=== PATIENT | female | born 1960 | race African-American/Black ===

== ENCOUNTER 2017-09-04 15:41 | Emergency (ER) | payer MEDICARE, MEDICAID, SELFPAY | END 2017-09-04 17:53 | disposition home or self-care (01) | PROVIDERS: Emergency Provider Nurse Practitioner Family; Family Provider Family Medicine; Visit Provider Nurse Practitioner Family | DX: J06.9 Acute upper respiratory infection, unspecified (principal); J44.9 Chronic obstructive pulmonary disease, unspecified; I10 Essential (primary) hypertension; E78.5 Hyperlipidemia, unspecified; Z88.0 Allergy status to penicillin; Z88.1 Allergy status to other antibiotic agents | CPT/HCPCS: G0463; 87804; 99201 ==

== ENCOUNTER → 2017-11-05 11:18 | Outpatient (POV) | payer MEDICARE, MEDICAID, SELFPAY | PROVIDERS: Family Provider Family Medicine; PCP Family Medicine; Visit Provider Internal Medicine | DX: Z00.00 Encounter for general adult medical examination without abnormal findings (principal) ==

== ENCOUNTER → 2018-05-06 11:48 | Outpatient (POV) | payer MEDICARE, MEDICAID, SELFPAY ==
--- NOTE | 2018-05-06 13:07 | XR_ITS ---
EXAM: XR cervical spine 5V HISTORY: ITS.REASON: FALL, C/O NUMBNESS IN RT INDEX FINGER ORDERING PHYSICIAN: Lizzeth Devlin PATIENT AGE: 58 years FINDINGS: Reversal of upper cervical lordosis. There is multilevel degenerative disc disease from C3 to C7. There is minimal retrolisthesis of C4 on 5 and C5 on 6 2-mm at each level. No fracture or dislocation. No lytic or blastic change. There is mild foraminal narrowing on the right at C6-C7. Mild facet arthritic changes are present from C3 to C7. IMPRESSION: Multilevel degenerative disc disease as described above with mild foraminal narrowing on the right at C6-C7
--- NOTE | 2018-05-06 13:09 | XR_ITS ---
XR hip RT 2-3V w/pelvis HISTORY: ITS.REASON: FALL, C/O RT HIP PAIN ORDERING PHYSICIAN: Lizzeth Devlin PATIENT AGE: 58 years COMPARISON: 12/21/2015 FINDINGS: There is been a total right hip prosthesis placement which is in good position similar to the previous exam without evidence of orthopedic complication. No acute fracture or dislocation evident. Calcification is present along the medial aspect of lesser trochanter somewhat greater on today's exam consistent with some heterotopic bone formation. There is some sclerosis of the SI joints on both sides. IMPRESSION: 1. Status post total right hip prosthesis with some increase in heterotopic bone formation along the lesser trochanter. 2. Bilateral sacroiliac joint sclerosis inferiorly
== END ==
LOC: SC 11:49 → RAD 12:57
PROVIDERS: Family Provider Family Medicine; PCP Family Medicine; Referring Provider Internal Medicine; Visit Provider Nurse Practitioner Family
DX: M54.2 Cervicalgia (principal); R20.2 Paresthesia of skin; M79.642 Pain in left hand; M79.641 Pain in right hand
CPT/HCPCS: 72050; 73502

== ENCOUNTER → 2018-10-17 15:44 | Outpatient (CLI) | payer MEDICARE, MEDICAID, SELFPAY ==
--- NOTE | 2018-10-17 15:50 | MR_ITS ---
MR cervical spine wo con, MR 3-d myelogram/MRCP HISTORY: Fell [id number] ago and hit head, LT shoulder, and elbow. Bilateral hand numbness. Stiffness in neck. RT sided Neck pain. ITS.REASON: SPINE PAIN ORDERING PHYSICIAN: Max Campos PATIENT AGE: 58 years Comparison: X-RAY 05-06-18. TECHNIQUE: Standard multiplanar multiecho sequences are performed without contrast. 3-D MIP and myelographic images are also rendered and reviewed FINDINGS: There is normal alignment. The craniocervical junction has an unremarkable appearance. There is slight reversal of the upper cervical lordosis which could be due to patient positioning or muscle spasm. Motion artifact is present on the STIR images. Axial images are somewhat limited due to motion and patient body habitus. C2-C3: Unremarkable. C3-C4: Degenerative disc disease with mild concentric bulging disc with narrowing of the canal is 9 mm. There is minimal contour deformity along the anterior aspect of the cord from the bulging disc and canal stenosis C4-C5: Degenerative disc disease with mild bulging disc with narrowing of the canal and mild bilateral foraminal narrowing. Canal measures 9 to 10 mm. C5-C6: Degenerative disc disease with bulging disc along with mild facet and ligamentum flavum hypertrophy. There is narrowing of the canal at 7 mm with bilateral foraminal narrowing and bilateral lateral recess narrowing. C6-C7: Degenerative disc disease with bulging disc which is eccentric toward the right with moderate right-sided foraminal narrowing. There is borderline narrowing of the canal at 11 mm. C7-T1: Unremarkable. T1-T2: Degenerative disc disease with mild anterolisthesis of T1 of 3 mm. IMPRESSION: Somewhat limited study due to motion and patient body habitus. Multilevel cervical spondylosis with degenerative disc disease with bulging disc and narrowing of the canal along with lateral recess and foraminal narrowing. Please see above for detailed description at each level No disc herniation
== END ==
PROVIDERS: PCP Nurse Practitioner Family; Visit Provider Orthopaedic Surgery Adult Reconstructive Orthopaedic Surgery
DX: M50.30 Other cervical disc degeneration, unspecified cervical region (principal)
CPT/HCPCS: 72141; 76376

== ENCOUNTER → 2018-12-02 14:40 | Outpatient (POV) | payer MEDICARE, MEDICAID, SELFPAY | PROVIDERS: Visit Provider Internal Medicine | DX: Z00.00 Encounter for general adult medical examination without abnormal findings (principal) ==

== ENCOUNTER 2021-06-30 15:57 | Emergency (ER) | payer MEDICARE, MEDICAID, SELFPAY ==
[2021-06-30 16:34] VITALS: BP 126/98; PULSE 86; RESP 20; TEMP 36.8; O2SAT 99; BMI 53.2
--- NOTE | 2021-06-30 16:42 | XR_ITS ---
PROCEDURE INFORMATION: Exam: XR Left Femur Exam date and time: 06/30/2021 4:42 PM Age: 61 years old Clinical indication: Injury or trauma; Fall; Work related; Blunt trauma; Thigh or upper leg; Left; Injury date: 06/30/21; Additional info: Fall, L knee pain TECHNIQUE: Imaging protocol: XR Left femur. Views: 2 views. COMPARISON: VENOUS/LOW UNI W/COMP.-LT 12/26/2014 9:59 AM FINDINGS: Bones/joints: No definite fracture in the femoral neck and proximal femur.. Soft tissues: Unremarkable. IMPRESSION: No definite fracture in the femoral neck and proximal femur..
--- NOTE | 2021-06-30 16:43 | XR_ITS ---
PROCEDURE INFORMATION: Exam: XR Left Knee Exam date and time: 06/30/2021 4:43 PM Age: 61 years old Clinical indication: Injury or trauma; Work related; Blunt trauma; Left; Injury date: 06/30/21; Injury details: Pain and swelling after fall; Prior surgery; Surgery date: 6+ months; Surgery type: Knee surgery; Additional info: Left knee pain S/P fall TECHNIQUE: Imaging protocol: XR Left knee. Views: 3 views. COMPARISON: VENOUS/LOW UNI W/COMP.-LT 12/26/2014 9:59 AM FINDINGS: Bones/joints: Severe Tricompartmental joint space narrowing and osteophyte formation consistent with degenerative changes. Bone on bone in the medial and lateral compartment. There is no evidence of acute fracture.There is no evidence of malalignment or dislocation. Soft tissues: Soft tissue swelling of the knee IMPRESSION: 1. Severe Tricompartmental joint space narrowing and osteophyte formation consistent with degenerative changes. Bone on bone in the medial and lateral compartment. 2. There is no evidence of acute fracture.There is no evidence of malalignment or dislocation.
--- NOTE | 2021-06-30 16:43 | XR_ITS ---
PROCEDURE INFORMATION: Exam: XR Left Tibia and Fibula Exam date and time: 06/30/2021 4:43 PM Age: 61 years old Clinical indication: Injury or trauma; Fall; Work related; Blunt trauma; Lower leg; Left; Injury date: 06/30/21; Additional info: Left knee pain TECHNIQUE: Imaging protocol: XR Left tibia and fibula. Views: 2 views. COMPARISON: VENOUS/LOW UNI W/COMP.-LT 12/26/2014 9:59 AM FINDINGS: Bones/joints: Severe degenerative changes of the knee. Acute nondisplaced fracture could be easily overlooked with this degree of degenerative changes. Recommend CT if acute fractures of the distal femur or proximal tibia are suspected. Minimally displaced Spiral oblique fracture of the fibular neck and proximal fibula. Soft tissues: Soft tissue swelling of the knee IMPRESSION: 1. Severe degenerative changes of the knee. Acute nondisplaced fracture could be easily overlooked with this degree of degenerative changes. Recommend CT if acute fractures of the distal femur or proximal tibia are suspected. 2. Minimally displaced Spiral oblique fracture of the fibular neck and proximal fibula.
--- NOTE | 2021-06-30 16:44 | XR_ITS ---
PROCEDURE INFORMATION: Exam: XR Left Ankle Exam date and time: 06/30/2021 4:44 PM Age: 61 years old Clinical indication: Injury or trauma; Work related; Blunt trauma; Left; Injury date: 06/30/21; Patient HX: Ankle pain and swelling after fall today; Additional info: Fall, pain TECHNIQUE: Imaging protocol: XR Left ankle. Views: 1 or 2 views. COMPARISON: VENOUS/LOW UNI W/COMP.-LT 12/26/2014 9:59 AM FINDINGS: Bones/joints: Well corticated avulsion fractures adjacent to the medial malleolus. There is no evidence of acute fracture.There is no evidence of malalignment or dislocation. Soft tissues: Bimalleolar soft tissue swelling.. IMPRESSION: 1. Bimalleolar soft tissue swelling.. 2. There is no evidence of acute fracture.There is no evidence of malalignment or dislocation.
--- NOTE | 2021-06-30 17:02 | PC.NURSE ---
rad notified of xray order
--- NOTE | 2021-06-30 17:03 | PC.NURSE ---
STATED OK TO GIVE TORADOL IV. ICE PACK APPLIED TO LEFT ANKLE.
[2021-06-30 20:16] VITALS: BP 142/76; PULSE 75; RESP 18; TEMP 36.8; O2SAT 99
--- NOTE | 2021-06-30 23:30 | HMH.EDGENADL ---
ED Disposition Clinical Impression: Fibula fracture Qualifiers: Fibula location: proximal Fracture type: closed Laterality: left Disposition: Home, Self-Care Condition on Discharge: Good Instructions: Fibula Shaft Fracture Referrals: Favian Ruiz MD [Primary Care Provider] - Max Morales JR, MD [Physician] - - Critical Care Critical Care Time: No Attestation: On 06/30/21, the high probability of a clinically significant, sudden or life threatening deterioration of the following system(s) required my full and direct attention, intervention and personal management. The time I documented below is in addition to time spent performing reported procedures but includes the following listed in this critical care notation. Medical Decision Making - Medical Records Medical records reviewed: Yes: I reviewed the patient's medical records. - Moody Inquiry Pt receiving controlled substance: No Vital Signs: 06/30/21 16:34 06/30/21 20:16 Temperature 98.2 F 98.2 F Temperature Source Oral Oral Pulse Rate 75 Pulse Rate [Brachial] 86 Respiratory Rate 20 18 Blood Pressure 142/76 H Blood Pressure [Right Arm] 126/98 H Blood Pressure Mean [Right Arm] 107 Blood Pressure Source Automatic Cuff Blood Pressure Source [Right Arm] Automatic Cuff Blood Pressure Position Sitting Blood Pressure Position [Right Arm] Supine 02 Sat by Pulse Oximetry 99 Oxygen Delivery Method Room Air Room Air Orders (Tests/Meds): ED MEDICATIONS Discontinued Medications Generic Name Dose Route Start Last Admin Trade Name Freq PRN Reason Stop Dose Admin Acetaminophen 500 mg 06/30/21 16:46 06/30/21 17:00 Acetaminophen 500mg Tab PO 06/30/21 16:47 500 mg ONCE ONE Administration Ketorolac Tromethamine 30 mg 06/30/21 16:44 06/30/21 17:03 Ketorolac 30mg/Ml Vial IM 06/30/21 16:45 30 mg ONCE ONE Administration Medical Decision Narrative: Patient is a 61yo female presenting with a chief complaint of left lower extremity pain s/p fall. Differential diagnosis includes, but is not limited to, fracture, dislocation, contusion, neurovascular injury. Initial assessment, patient is hemodynamically stable and nontoxic-appearing. She is alert, oriented and there is no evidence of trauma to face, head or other extremities. She was evaluated with x-ray of her left femur, knee, tip/fib and ankle. She was treated with IV Toradol and Tylenol. Patient's imaging was significant for minimally displaced, spiral fracture of the proximal fibular neck and shaft. Ankle x-ray shows bimalleolar soft tissue swelling but no acute fracture or malalignment of the talar dome. This is suggestive of isolated proximal fibula fracture but syndesmosis involvement cannot be excluded. In addition, I am unable to exclude a knee fracture based on x-rays due to severe arthritis. Patient was discussed with orthopedist on-call, Dr. Morales who recommended patient be placed in a lower extremity boot, made nonweightbearing and referred to for orthopedic evaluation on an outpatient basis. Patient was given return precautions and discharged in stable condition with close orthopedic follow-up. General Adult HPI - General Chief complaint: Fall Stated complaint: fall Time Seen by Provider: 06/30/21 16:30 Mode of Arrival: EMS Limitations: Physical Limitations Description of Symptoms (Recalled from ER Triage Doc. by RN): PATIENT WAS GETTING READY TO GET IN HER TRUCK AND SHE LIFTED HER RIGHT LEG UP HER BACK WENT OUT AND LEFT GET WENT UNDERNEATH OF HER AND SHE FELL ON IT. PATIENT REPORTS PAIN FROM KNEE TO THE ANKLE. - History of Present Illness HPI narrative: Génesis is a 61yo F with past medical history of morbid obesity is presenting for chief complaint of acute left lower extremity pain s/p fall. She states she was getting into her truck when her legs gave out from underneath her and she fell on her left leg. She is complaining of severe
== END 2021-06-30 20:18 | disposition home or self-care (01) ==
PROVIDERS: Emergency Provider Emergency Medicine; PCP Emergency Medicine
DX: S82.832A Other fracture of upper and lower end of left fibula, initial encounter for closed fracture (principal); W01.10XA Fall on same level from slipping, tripping and stumbling with subsequent striking against unspecified object, initial encounter; Y92.019 Unspecified place in single-family (private) house as the place of occurrence of the external cause; Z88.0 Allergy status to penicillin; Z88.1 Allergy status to other antibiotic agents; Z88.5 Allergy status to narcotic agent
CPT/HCPCS: 73552; 73562; 73590; 73600; 96372; 99282

== ENCOUNTER 2022-01-27 08:45 | Emergency (ER) | payer MEDICARE, MEDICAID, SELFPAY ==
[2022-01-27 08:46] VITALS: BP 144/83; PULSE 92; RESP 18; TEMP 37.1; O2SAT 98; BMI 56.5
--- NOTE | 2022-01-27 09:01 | HMH.EDEAR ---
ED Disposition Clinical Impression: Otalgia, right ear Acute pharyngitis Qualifiers: Pharyngitis/tonsillitis etiology: unspecified etiology Qualified Code(s): J02.9 - Acute pharyngitis, unspecified Disposition: Home, Self-Care Condition on Discharge: Good Additional Instructions: follow up PCP as needed Prescriptions: clindamycin HCL [Cleocin HCl] 300 mg PO Q6 #40 cap Transmission Status: Pending to [id number] Referrals: Favian Ruiz MD [Primary Care Provider] - - Critical Care Critical Care Time: No Attestation: On , the high probability of a clinically significant, sudden or life threatening deterioration of the following system(s) required my full and direct attention, intervention and personal management. The time I documented below is in addition to time spent performing reported procedures but includes the following listed in this critical care notation. Medical Decision Making - Medical Records Medical records reviewed: Yes: I reviewed the patient's medical records. - Moody Inquiry Pt receiving controlled substance: No Vital Signs: 01/27/22 08:46 Temperature 98.7 F Temperature Source Oral Pulse Rate [Radial] 92 H Respiratory Rate 18 Blood Pressure [Right Arm] 144/83 H Blood Pressure Mean [Right Arm] 103 Blood Pressure Position [Right Arm] Sitting 02 Sat by Pulse Oximetry 98 Oxygen Delivery Method Room Air Ear HPI - General Chief complaint: Ear Stated complaint: rt ear pain Time Seen by Provider: 01/27/22 09:01 Mode of Arrival: Ambulatory Limitations: No Limitations Description of Symptoms (Recalled from ER Triage Doc. by RN): to ed per pvt car with c/o rt ear pain x 1 week states now pain radiating down rt side neck and rt jaw. denies any fever, chills, nausea, or drainage from ear. cpta tylenol - History of Present Illness HPI Narrative: rt otalgia, sore throat, several days Location: right ear Duration: constant Severity: moderate Relieving factors: nothing Exacerbating factors: nothing Discharge from ear: no - Related Data Home Medications Medication Instructions Recorded Confirmed albuterol sulfate 90 mcg/actuation 2 puff INHALATION Q6H PRN 02/27/18 12/11/18 aerosol inhaler budesonide-formoterol HFA 160 2 puff INHALATION BID 02/27/18 12/11/18 mcg-4.5 mcg/actuation aerosol inhaler dexlansoprazole 60 mg 60 mg PO DAILY 02/27/18 12/11/18 capsule,biphase delayed release ipratropium 20 mcg-albuterol 100 1 puff INHALATION Q6H 02/27/18 12/11/18 mcg/actuation mist for inhalation montelukast 10 mg tablet 10 mg PO QPM 02/27/18 12/11/18 spironolactone 25 mg tablet 25 mg PO DAILY 02/27/18 06/30/21 Clarithromycin [Biaxin] 500 mg PO BID 12/11/18 12/11/18 clindamycin HCL [Clindamycin HCl 300 mg PO Q8H 12/11/18 12/11/18 300mg Cap] predniSONE [Deltasone 10mg tablet] 10 mg PO BID 12/11/18 06/30/21 Previous Rx's Medication Instructions Recorded metronidazole 500 mg tablet 500 mg PO TID 10 Days #30 tab 11/04/18 ondansetron 4 mg disintegrating 4 mg PO TID PRN #15 tab 11/14/18 tablet levoFLOXacin [Levaquin 500mg 500 mg PO DAILY #7 tab 12/16/18 tab] clindamycin HCL [Cleocin HCl] 300 mg PO Q6 #40 cap 01/27/22 Allergies Allergy/AdvReac Type Severity Reaction Status Date / Time ampicillin [AMPICILLIN] Allergy Severe Rash Verified 12/11/18 20:53 cephalexin [From KEFLEX] Allergy Mild Verified 12/11/18 20:53 diclofenac [DICLOFENAC] Allergy Mild Verified 12/11/18 20:53 morphine [MORPHINE] Allergy Mild Verified 12/11/18 20:53 amoxicillin [From AUGMENTIN] Allergy Unknown Verified 12/11/18 20:53 clavulanic acid Allergy Unknown Verified 12/11/18 20:53 [From AUGMENTIN] Penicillins [PENICILLINS] Allergy Unknown Verified 12/11/18 20:53 azithromycin Allergy Rash Verified 12/11/18 20:53 [facility] History - Hepatitis A Screen Attestation statement:: This patient has been screened for Hepatitis A risk factors. Medical History
[2022-01-27 09:09] VITALS: BP 144/73; PULSE 87; RESP 16; TEMP 36.6; O2SAT 96
== END 2022-01-27 09:13 | disposition home or self-care (01) ==
PROVIDERS: Emergency Provider Emergency Medicine; PCP Emergency Medicine
DX: J02.9 Acute pharyngitis, unspecified (principal); H92.01 Otalgia, right ear; M54.2 Cervicalgia; R68.84 Jaw pain; Z88.0 Allergy status to penicillin; Z88.1 Allergy status to other antibiotic agents; Z88.3 Allergy status to other anti-infective agents; Z88.5 Allergy status to narcotic agent; Z88.8 Allergy status to other drugs, medicaments and biological substances; Z80.9 Family history of malignant neoplasm, unspecified; Z83.3 Family history of diabetes mellitus
CPT/HCPCS: 99283

== ENCOUNTER 2022-05-04 18:23 | Emergency (ER) | payer MEDICARE, MEDICAID, SELFPAY ==
--- NOTE | 2022-05-04 19:56 | EXP.UTC ---
Discharge Plan Disposition Patient Disposition: Home, Self-Care Condition: Good Prescriptions Prescriptions: New clindamycin HCl 300 mg capsule 300 mg PO Q8H 10 Days Qty: 30 0RF No Action spironolactone 25 mg tablet 25 mg PO DAILY albuterol sulfate [Ventolin HFA] 90 mcg/actuation HFA aerosol inhaler 2 puff INHALATION Q6H PRN (Reason: soa) budesonide-formoterol [Symbicort] 160-4.5 mcg/actuation HFA aerosol inhaler 2 puff INHALATION BID ipratropium-albuterol [Combivent Respimat] 20-100 mcg/actuation mist 1 puff INHALATION Q6H dexlansoprazole [Dexilant] 60 mg capsule,biphase delayed releas 60 mg PO DAILY montelukast [Singulair] 10 mg tablet 10 mg PO QPM metronidazole 500 mg tablet 500 mg PO TID 10 Days Qty: 30 0RF ondansetron 4 mg tablet,disintegrating 4 mg PO TID PRN (Reason: nausea and vomiting) Qty: 15 0RF prednisone 10 MG tablet 10 mg PO BID clindamycin HCl 300 MG capsule 300 mg PO Q8H clarithromycin [Biaxin] 500 MG tablet 500 mg PO BID levofloxacin 500 MG tablet 500 mg PO DAILY Qty: 7 0RF clindamycin HCl 300 MG capsule 300 mg PO Q6 Qty: 40 0RF Referrals Referrals: Favian Ruiz MD [Primary Care Provider] - Enter time for follow up Activity Restrictions/Add. Instructions Additional Instructions/Restrictions: Please follow up with your dentist as soon as they can see you. Take tylenol for pain Take the medications as directed. Follow up with your regular doctor. GO TO THE ER FOR ANY WORSENING SYMPTOMS Clinical Impressions Clinical Impression: Abscess, dental, Pain, dental Instructions Patient Instructions: Tooth Abscess, DI for Tooth Abscess Discharge ED Provider: Deshawn Nugent [facility] General Stated complaint: dental pain Time Seen by Provider: 05/04/22 19:56 History of Present Illness Provider Complaint: She states that she has had dental pain for the past 1 week. Related Data Home Medications Medication Instructions Recorded Confirmed albuterol sulfate 90 mcg/actuation 2 puff inhalation Q6H PRN soa 02/27/18 12/11/18 aerosol inhaler (Ventolin HFA) budesonide-formoterol HFA 160 2 puff inhalation BID soa 02/27/18 12/11/18 mcg-4.5 mcg/actuation aerosol inhaler (Symbicort) dexlansoprazole 60 mg 60 mg PO DAILY GERD 02/27/18 12/11/18 capsule,biphase delayed release (Dexilant) ipratropium 20 mcg-albuterol 100 1 puff inhalation Q6H soa 02/27/18 12/11/18 mcg/actuation mist for inhalation (Combivent Respimat) montelukast 10 mg tablet 10 mg PO QPM allergies 02/27/18 12/11/18 (Singulair) spironolactone 25 mg tablet 25 mg PO DAILY Fluid 02/27/18 06/30/21 clarithromycin 500 mg tablet 500 mg PO BID bronchitis 12/11/18 12/11/18 (Biaxin) clindamycin HCl 300 mg capsule 300 mg PO Q8H abx 12/11/18 12/11/18 prednisone 10 mg tablet 10 mg PO BID inflammation 12/11/18 06/30/21 Previous Rx's Medication Instructions Recorded metronidazole 500 mg tablet 500 mg PO TID dental infection 10 11/04/18 days #30 tabs ondansetron 4 mg disintegrating 4 mg PO TID PRN nausea and 11/14/18 tablet vomiting #15 tabs levofloxacin 500 mg tablet 500 mg PO DAILY #7 tabs 12/16/18 clindamycin HCl 300 mg capsule 300 mg PO Q6 #40 caps 01/27/22 clindamycin HCl 300 mg capsule 300 mg PO Q8H 10 days #30 caps 05/04/22 Allergies Allergy/AdvReac Type Severity Reaction Status Date / Time ampicillin [AMPICILLIN] Allergy Severe Rash Verified 12/11/18 20:53 cephalexin [From KEFLEX] Allergy Mild Verified 12/11/18 20:53 diclofenac [DICLOFENAC] Allergy Mild Verified 12/11/18 20:53 morphine [MORPHINE] Allergy Mild Verified 12/11/18 20:53 amoxicillin [From AUGMENTIN] Allergy Unknown Verified 12/11/18 20:53 clavulanic acid Allergy Unknown Verified 12/11/18 20:53 [From AUGMENTIN] Penicillins [PENICILLINS] Allergy Unknown Verified 12/11/18 20:53 azithromycin Allergy Rash Verified 12/11/18 20:
[2022-05-04 20:14] VITALS: BP 174/84; PULSE 99; RESP 18; TEMP 36.6; O2SAT 97; BMI 56.5
[2022-05-04 20:17] VITALS: BP 174/84; PULSE 99; RESP 18; TEMP 36.6
== END 2022-05-04 20:21 | disposition home or self-care (01) ==
PROVIDERS: Emergency Provider Nurse Practitioner Family; PCP Emergency Medicine
DX: K04.7 Periapical abscess without sinus (principal); K08.89 Other specified disorders of teeth and supporting structures; R11.2 Nausea with vomiting, unspecified; Z79.51 Long term (current) use of inhaled steroids; Z79.52 Long term (current) use of systemic steroids; Z88.0 Allergy status to penicillin; Z88.1 Allergy status to other antibiotic agents; Z88.3 Allergy status to other anti-infective agents; Z88.8 Allergy status to other drugs, medicaments and biological substances
CPT/HCPCS: 99213; G0463

== ENCOUNTER 2022-07-30 09:26 | Emergency (ER) | payer MEDICARE, MEDICAID, SELFPAY ==
[2022-07-30] VITALS (7 sets, daily range): BP systolic 141–163; BP diastolic 81–97; PULSE 86–95; RESP 16–18; TEMP 36.9–37.2; O2SAT 91–99; BMI 60.9
--- NOTE | 2022-07-30 09:33 | XR_ITS ---
FINAL REPORT CLINICAL HISTORY: chest pain COMPARISON: 12/11/2018 FINDINGS: A single portable view of the chest was obtained. The images are suboptimal. There is cardiomegaly. The mediastinum is within normal limits. There is probable linear atelectasis in the right lung. The bony thorax is intact. IMPRESSION: Suboptimal images. Probable linear atelectasis in the right lung. Reviewed, Interpreted and Dictated by Jesus Freire III, MD Transcribed by Basilia Nelson Authenticated and [facility]
--- NOTE | 2022-07-30 09:33 | CT_ITS ---
FINAL REPORT CLINICAL HISTORY: chest pain, to back COMPARISON: 09/10/2017 FINDINGS: Thin section axial CT images of the chest were obtained with contrast. 3D reformatted images were also obtained. This study was performed with techniques to keep radiation doses as low as reasonably achievable (ALARA). Individualized dose reduction techniques using automated exposure control or adjustment of mA and/or kV according to the patient''s size were employed. There is artifact secondary to patient body habitus which decreases sensitivity of the exam. There is no evidence of pulmonary embolism. There is no evidence of thoracic aortic aneurysm or dissection. There is no evidence of mediastinal or hilar mass or adenopathy. There is no evidence of pulmonary mass or nodule. There is minimal atelectasis in the lung bases. There is a small hiatal hernia. Limited images of the upper abdomen demonstrate a 5.5 cm mass in the upper pole of the right kidney which cannot be accurately characterized without contrast. IMPRESSION: No evidence of pulmonary embolism. No evidence of thoracic aortic aneurysm or dissection. 5.5 cm mass in the upper pole of right kidney cannot be accurately characterized without contrast. Reviewed, Interpreted and Dictated by Jesus Freire III, MD Transcribed by Basilia Nelson Authenticated and . [facility]
--- NOTE | 2022-07-30 09:34 | ECG_ITS ---
APPROVED REPORT Exam: Resting ECG HR:91 bpm ECG Measurements Heart Rate 91 AXES DC 150 P 61 QRSd 91 QRS 11 QT 356 T 41 QTc 404 Conclusion SINUS RHYTHM WITH OCCASIONAL SUPRAVENTRICULAR PREMATURE COMPLEXES BORDERLINE ECG UNCONFIRMED REPORT Electronically signed by : Devonte Cain MD 07/30/2022 19:43:17
--- NOTE | 2022-07-30 09:37 | HMH.EDGENADL ---
Discharge Plan Disposition Patient Disposition: Home, Self-Care Condition: Fair Prescriptions Prescriptions: New naproxen 500 mg tablet 500 mg PO BID PRN (Reason: pain) Qty: 20 0RF No Action spironolactone 25 mg tablet 25 mg PO DAILY albuterol sulfate [Ventolin HFA] 90 mcg/actuation HFA aerosol inhaler 2 puff INHALATION Q6H PRN (Reason: soa) budesonide-formoterol [Symbicort] 160-4.5 mcg/actuation HFA aerosol inhaler 2 puff INHALATION BID ipratropium-albuterol [Combivent Respimat] 20-100 mcg/actuation mist 1 puff INHALATION Q6H dexlansoprazole [Dexilant] 60 mg capsule,biphase delayed releas 60 mg PO DAILY montelukast [Singulair] 10 mg tablet 10 mg PO QPM metronidazole 500 mg tablet 500 mg PO TID 10 Days Qty: 30 0RF ondansetron 4 mg tablet,disintegrating 4 mg PO TID PRN (Reason: nausea and vomiting) Qty: 15 0RF prednisone 10 MG tablet 10 mg PO BID clindamycin HCl 300 MG capsule 300 mg PO Q8H clarithromycin [Biaxin] 500 MG tablet 500 mg PO BID levofloxacin 500 MG tablet 500 mg PO DAILY Qty: 7 0RF clindamycin HCl 300 MG capsule 300 mg PO Q6 Qty: 40 0RF clindamycin HCl 300 mg capsule 300 mg PO Q8H 10 Days Qty: 30 0RF Referrals Follow up/Referrals: Favian Ruiz MD [Primary Care Provider] - See instructions Activity Restrictions/Add. Instructions Additional Instructions/Restrictions: You have been evaluated for chest, back pain. Likely due to musculoskeletal, pleuritic pain. Please take anti-inflammatories like naproxen or ibuprofen as scheduled. Follow-up with your primary care doctor for symptom recheck in [address] scan today incidentally showed a nodule on your right kidney. You will need to have follow-up for this as well. Return to the emergency department at once for any new or worsening symptoms, pain, difficulty breathing, fevers, other concerns Clinical Impressions Clinical Impression: Pleuritic chest pain, Nodule of kidney Instructions Patient Instructions: DI for Atypical Chest Pain, DI for Pleurisy, DI for Adrenal Incidentaloma Discharge ED Provider: Danika Brock General Adult HPI General Chief complaint: Shortness of Breath/Dyspnea Stated complaint: soa severe pain between shoulder blades Time Seen by Provider: 07/30/22 09:30 Mode of Arrival: Ambulatory Source of Information: Patient Limitations: No Limitations History of Present Illness HPI narrative: 62-year-old female presenting to the emergency department with chest pain. Pain started a couple of days ago. It is located between her shoulder blades. Described as sharp, stabbing. Feels like glass. Located on the back. No radiation to the front of the chest. Hurts to move. Hurts to breathe. Has had some sinus congestion. Denies fevers, chills, cough, shortness of breath. She has been taking acetaminophen without relief. She has had pleurisy before, this feels similar. She denies changes in activity or known injury. She suffers from sarcoidosis and pulmonary hypertension. No history of hypertension or CAD. Related Data Home Medications Medication Instructions Recorded Confirmed albuterol sulfate 90 mcg/actuation 2 puff inhalation Q6H PRN soa 02/27/18 12/11/18 aerosol inhaler (Ventolin HFA) budesonide-formoterol HFA 160 2 puff inhalation BID soa 02/27/18 12/11/18 mcg-4.5 mcg/actuation aerosol inhaler (Symbicort) dexlansoprazole 60 mg 60 mg PO DAILY GERD 02/27/18 12/11/18 capsule,biphase delayed release (Dexilant) ipratropium 20 mcg-albuterol 100 1 puff inhalation Q6H soa 02/27/18 12/11/18 mcg/actuation mist for inhalation (Combivent Respimat) montelukast 10 mg tablet 10 mg PO QPM allergies 02/27/18 12/11/18 (Singulair) spironolactone 25 mg tablet 25 mg PO DAILY Fluid 02/27/18 06/30/21 clarithromycin 500 mg tablet 500 mg PO BID bronchitis 12/11/18 12/11/18 (Biaxin) clindamycin HCl 300 mg capsule
--- NOTE | 2022-07-30 09:43 | PC.NURSE ---
rad at BS for portable xray
[2022-07-30 09:53] LABS: Basophils # 0.1 K/mm3 (0-0.2); Basophils % 0.7 % (0.1-2.0); Eosinophils # 0.2 K/mm3 (0.0-0.4); Eosinophils % 2.1 % (0.1-12.0); Hematocrit 40.1 % (37.0-47.0); Hemoglobin 12.3 g/dL (12.2-16.2); Lymphocytes # 2.1 K/mm3 (0.7-4.5); Lymphocytes % 17.9 % (10-50); Mean Corpuscular HGB Conc 30.6 g/dL (31.8-35.4); Mean Corpuscular Hemoglobin 25.3 pg (27.0-31.2); Mean Corpuscular Volume 82.7 fl (81-99); Mean Platelet Volume 8.9 fl (7.4-10.4); Monocytes # 0.5 K/mm3 (0.1-1.0); Monocytes % 4.3 % (1.7-9.3); Neutrophils # 8.6 K/mm3 (1.8-7.8); Platelet Count 353 K/mm3 (142-424); Red Blood Count 4.85 M/mm3 (4.20-5.40); Red Cell Distribution Width 17.4 % (11.5-17.5); White Blood Count 11.5 K/mm3 (4.8-10.8)
[2022-07-30 09:56] LABS: Chloride 104 mmol/L (98-107); Potassium 3.6 mmoL/L (3.5-5.1); Sodium 142 mmol/L (136-145)
[2022-07-30 09:59] LABS: Anion Gap 10.6 mEq/L (5-15); Blood Urea Nitrogen 16 mg/dl (7-17); Calcium 9.8 mg/dl (8.4-10.2); Carbon Dioxide 31 mmol/L (22.0-30.0); Estimated Glomerular Filt Rate 64 ml/min (>60); GFR (African American) 77 ML/MIN (>60); Glucose 93 mg/dl (74-100)
--- NOTE | 2022-07-30 10:06 | PC.NURSE ---
pt to CT
[2022-07-30 10:14] LABS: Troponin I < 0.01 ng/ml (0.00-0.034)
--- NOTE | 2022-07-30 11:30 | PC.NURSE ---
pt to restroom and back to bed, pt uses her own walker to assist with ambulation, pt tolerated well. Warm blanket given to pt, call light within reach. Pt states no other needs at this time
[2022-07-30 13:57] LABS: Troponin I < 0.01 ng/ml (0.00-0.034)
== END 2022-07-30 15:10 | disposition home or self-care (01) ==
PROVIDERS: Emergency Provider Emergency Medicine; PCP Emergency Medicine
DX: R07.81 Pleurodynia (principal); N28.89 Other specified disorders of kidney and ureter
CPT/HCPCS: 71045; 71275; 80048; 84484; 85025; 93005; 96374; 99285; Q9967

== ENCOUNTER 2022-10-10 15:00 | Outpatient (RCR) | payer MEDICARE, MEDICAID, SELFPAY | END 2022-10-18 13:19 | disposition home or self-care (01) | LOC: PT 15:00 | PROVIDERS: PCP Emergency Medicine; Visit Provider Neurological Surgery | DX: M54.2 Cervicalgia (principal) | CPT/HCPCS: 97012; 97110; 97140; 97163 ==

== ENCOUNTER → 2022-12-12 08:26 | Outpatient (CLI) | payer MEDICARE, MEDICAID, SELFPAY ==
--- NOTE | 2022-12-12 08:32 | XR_ITS ---
FINAL REPORT CLINICAL HISTORY: hip pain FINDINGS: RIGHT HIP Three views of the right hip including an AP pelvis demonstrate right hip prosthesis. There is no acute fracture. There are moderate hypertrophic changes of degenerative disc disease in the lower lumbar spine. The visualized bony structures are well aligned. No soft tissue abnormality is seen. IMPRESSION: Right hip prosthesis. Moderate hypertrophic changes of degenerative disc disease in the lower lumbar spine. Reviewed, Interpreted and Dictated by Isael Farrell MD Transcribed by Basilia Nelson Authenticated and [facility]
== END ==
PROVIDERS: PCP Emergency Medicine; Visit Provider Orthopaedic Surgery
DX: M25.551 Pain in right hip (principal)
CPT/HCPCS: 73502

== ENCOUNTER 2023-03-15 08:27 | Emergency (ER) | payer MEDICARE, MEDICAID, SELFPAY ==
[2023-03-15 08:30] VITALS: BP 158/97; PULSE 98; RESP 26; TEMP 37; O2SAT 98; BMI 56.5
--- NOTE | 2023-03-15 08:39 | EXP.UTC ---
Discharge Plan Disposition Patient Disposition: Home, Self-Care Condition: Good Prescriptions Prescriptions: New mupirocin 2 % ointment 1 applic topical BID Qty: 22 0RF Rx Instructions: apply to sores in nose doxycycline hyclate 100 mg capsule 100 mg PO BID Qty: 20 0RF No Action spironolactone 25 mg tablet 25 mg PO DAILY albuterol sulfate [Ventolin HFA] 90 mcg/actuation HFA aerosol inhaler 2 puff INHALATION Q6H PRN (Reason: soa) budesonide-formoterol [Symbicort] 160-4.5 mcg/actuation HFA aerosol inhaler 2 puff INHALATION BID ipratropium-albuterol [Combivent Respimat] 20-100 mcg/actuation mist 1 puff INHALATION Q6H dexlansoprazole [Dexilant] 60 mg capsule,biphase delayed releas 60 mg PO DAILY montelukast [Singulair] 10 mg tablet 10 mg PO QPM metronidazole 500 mg tablet 500 mg PO TID 10 Days Qty: 30 0RF ondansetron 4 mg tablet,disintegrating 4 mg PO TID PRN (Reason: nausea and vomiting) Qty: 15 0RF prednisone 10 MG tablet 10 mg PO BID clindamycin HCl 300 MG capsule 300 mg PO Q8H clarithromycin [Biaxin] 500 MG tablet 500 mg PO BID naproxen 500 mg tablet 500 mg PO BID PRN (Reason: pain) Qty: 20 0RF levofloxacin 500 MG tablet 500 mg PO DAILY Qty: 7 0RF clindamycin HCl 300 MG capsule 300 mg PO Q6 Qty: 40 0RF clindamycin HCl 300 mg capsule 300 mg PO Q8H 10 Days Qty: 30 0RF Referrals Follow up/Referrals: Favian Ruiz MD [Primary Care Provider] - See instructions Activity Restrictions/Add. Instructions Additional Instructions/Restrictions: *Monitor Temp, Over the counter Motrin or Tylenol as directed/as needed Tylenol every 4 hours and Motrin every 6 hours (as long as your family doctor has told you that you can take it) for fever or pain. and straight to ER if unable to lower temp less than 101.0 after medication given *Warm salt water gargles may help to soothe the throat *Throat Lozenges? *Warm fluids like tea with honey may help to soothe the throat? *Sleep elevated *Humidifier/Vaporizer *Flonase 2 sprays in each nostril daily but be aware that it may take 2-3 days before you notice improvement Take medication as prescribed Follow up IMMEDIATELY for new or worsening symptoms or no Noticeable improvement over the next 48-72 hours. 911 for difficulty breathing or swallowing Clinical Impressions Clinical Impression: Sinusitis Qualifiers: Sinusitis location: unspecified location Chronicity: unspecified Qualified Code(s): J32.9 - Chronic sinusitis, unspecified Instructions Patient Instructions: DI for Sinusitis, Sinusitis Discharge ED Provider: Mandy Ashley [facility] HPI General Stated complaint: ear ache, nose bleeds, sore throat, WONG Mode of Arrival: Ambulatory Source of Information: Patient Limitations: No Limitations Time Seen by Provider: 03/15/23 08:39 Description of Symptoms (Recalled from Triage Doc. by RN): PATIENT C/O RIGHT EAR PAIN, SINUS PAIN, AND FEELING HOT/SWEATS X 7-8 DAYS HEENT Symptoms (Recalled from RN notes): Yes Resp Symptoms (Recalled from RN notes): No Skin Symptoms (Recalled from RN notes): No MS Symptoms (Recalled from RN notes): No Functional Status (Recalled from RN notes): WNL History of Present Illness Provider Complaint: Patient states that for over a week she has been having sinus pain and pressure and pain in her right ear States that she has sores in her nose and they hurt States that she has been trying to use vasoline but not helped much and she is having pressure behind her eyes Feels like she has a bad sinus infection Related Data Home Medications Medication Instructions Recorded Confirmed albuterol sulfate 90 mcg/actuation 2 puff inhalation Q6H PRN soa 02/27/18 12/12/22 aerosol inhaler (Ventolin HFA) budesonide-formoterol HFA 160 2 puff inhalation BID soa 18 12/12/22 mcg-4.5 mcg/actuation aerosol in
[2023-03-15 08:58] VITALS: BP 158/97; PULSE 98; RESP 22; TEMP 37; O2SAT 98
== END 2023-03-15 09:00 | disposition home or self-care (01) ==
PROVIDERS: Emergency Provider Nurse Practitioner; PCP Emergency Medicine
DX: J01.90 Acute sinusitis, unspecified (principal); H92.01 Otalgia, right ear
CPT/HCPCS: 99212; 99214; G0463

== ENCOUNTER 2023-05-23 13:14 | Emergency (ER) | payer MEDICARE, MEDICAID, SELFPAY ==
[2023-05-23 13:24] VITALS: BP 154/97; PULSE 116; RESP 19; TEMP 37.2; O2SAT 97; BMI 41.5
[2023-05-23 13:44] VITALS: BP 163/98; PULSE 94; RESP 18; O2SAT 97
--- NOTE | 2023-05-23 13:44 | HMH.EDGENADL ---
Discharge Plan Disposition Patient Disposition: Home, Self-Care Prescriptions Prescriptions: New clindamycin HCl 300 mg capsule 300 mg PO Q8H 7 Days Qty: 21 0RF No Action spironolactone 25 mg tablet 25 mg PO DAILY albuterol sulfate [Ventolin HFA] 90 mcg/actuation HFA aerosol inhaler 2 puff INHALATION Q6H PRN (Reason: soa) budesonide-formoterol [Symbicort] 160-4.5 mcg/actuation HFA aerosol inhaler 2 puff INHALATION BID ipratropium-albuterol [Combivent Respimat] 20-100 mcg/actuation mist 1 puff INHALATION Q6H dexlansoprazole [Dexilant] 60 mg capsule,biphase delayed releas 60 mg PO DAILY montelukast [Singulair] 10 mg tablet 10 mg PO QPM metronidazole 500 mg tablet 500 mg PO TID 10 Days Qty: 30 0RF ondansetron 4 mg tablet,disintegrating 4 mg PO TID PRN (Reason: nausea and vomiting) Qty: 15 0RF prednisone 10 MG tablet 10 mg PO BID clindamycin HCl 300 MG capsule 300 mg PO Q8H clarithromycin [Biaxin] 500 MG tablet 500 mg PO BID naproxen 500 mg tablet 500 mg PO BID PRN (Reason: pain) Qty: 20 0RF mupirocin 2 % ointment 1 applic topical BID Qty: 22 0RF Rx Instructions: apply to sores in nose doxycycline hyclate 100 mg capsule 100 mg PO BID Qty: 20 0RF levofloxacin 500 MG tablet 500 mg PO DAILY Qty: 7 0RF clindamycin HCl 300 MG capsule 300 mg PO Q6 Qty: 40 0RF clindamycin HCl 300 mg capsule 300 mg PO Q8H 10 Days Qty: 30 0RF Referrals Follow up/Referrals: Favian Ruiz MD [Primary Care Provider] - See instructions Activity Restrictions/Add. Instructions Additional Instructions/Restrictions: At this time associated to be discharged home. If new or worsening symptoms please do not hesitate to return the emergency department. Please take your antibiotics as prescribed. Please continue to follow-up with your family doctor and dentist as discussed. Clinical Impressions Clinical Impression: Dental caries, Acute ear pain Discharge ED Provider: Shawn Bansal General Adult HPI General Chief complaint: Dental/Oral Stated complaint: Pain in right ear and throat Time Seen by Provider: 05/23/23 13:24 Mode of Arrival: Ambulatory Source of Information: Patient Limitations: No Limitations Description of Symptoms (Recalled from ER Triage Doc. by RN): 63 yo F presents to ED with c/o infection in teeth, right ear pain. Symptoms ongoing for a few days History of Present Illness HPI narrative: Patient is a 63-year-old female with past medical history of sarcoidosis who presents emergency department for evaluation of tooth pain. Patient states that she has multiple cavities which are requiring mouth surgery and she saw the dentist the last couple of days and had one of her tooth manipulated. Since then she has felt right maxillary molar pain radiating to her ear. She has subjective facial fullness on the right. She states she has chronic hip pain status post total hip replacement. Related Data Home Medications Medication Instructions Recorded Confirmed albuterol sulfate 90 mcg/actuation 2 puff inhalation Q6H PRN soa 02/27/18 12/12/22 aerosol inhaler (Ventolin HFA) budesonide-formoterol HFA 160 2 puff inhalation BID soa 02/27/18 12/12/22 mcg-4.5 mcg/actuation aerosol inhaler (Symbicort) dexlansoprazole 60 mg 60 mg PO DAILY GERD 02/27/18 12/12/22 capsule,biphase delayed release (Dexilant) ipratropium 20 mcg-albuterol 100 1 puff inhalation Q6H soa 02/27/18 12/12/22 mcg/actuation mist for inhalation (Combivent Respimat) montelukast 10 mg tablet 10 mg PO QPM allergies 02/27/18 12/12/22 (Singulair) spironolactone 25 mg tablet 25 mg PO DAILY Fluid 02/27/18 12/12/22 clarithromycin 500 mg tablet 500 mg PO BID bronchitis 12/11/18 12/12/22 (Biaxin) clindamycin HCl 300 mg capsule 300 mg PO Q8H abx 12/11/18 12/12/22 prednisone 10 mg tablet 10 mg PO BID inflammation 12/11/18 12/12/22 Previou
[2023-05-23 14:17] VITALS: BP 148/91; PULSE 95; RESP 15; TEMP 36.7
== END 2023-05-23 14:18 | disposition home or self-care (01) ==
PROVIDERS: Emergency Provider Emergency Medicine; PCP Emergency Medicine
DX: R07.0 Pain in throat (principal); H92.01 Otalgia, right ear; D86.9 Sarcoidosis, unspecified
CPT/HCPCS: 99283

== ENCOUNTER 2023-07-11 15:58 | Emergency (ER) | payer MEDICARE, MEDICAID, SELFPAY ==
[2023-07-11 15:59] VITALS: BP 162/100; PULSE 111; RESP 19; TEMP 36.8; O2SAT 99; BMI 59.1
--- NOTE | 2023-07-11 16:13 | HMH.EDGENADL ---
Discharge Plan Disposition Patient Disposition: Home, Self-Care Prescriptions Prescriptions: No Action spironolactone 25 mg tablet 25 mg PO DAILY albuterol sulfate [Ventolin HFA] 90 mcg/actuation HFA aerosol inhaler 2 puff INHALATION Q6H PRN (Reason: soa) budesonide-formoterol [Symbicort] 160-4.5 mcg/actuation HFA aerosol inhaler 2 puff INHALATION BID ipratropium-albuterol [Combivent Respimat] 20-100 mcg/actuation mist 1 puff INHALATION Q6H dexlansoprazole [Dexilant] 60 mg capsule,biphase delayed releas 60 mg PO DAILY montelukast [Singulair] 10 mg tablet 10 mg PO QPM metronidazole 500 mg tablet 500 mg PO TID 10 Days Qty: 30 0RF ondansetron 4 mg tablet,disintegrating 4 mg PO TID PRN (Reason: nausea and vomiting) Qty: 15 0RF prednisone 10 MG tablet 10 mg PO BID clindamycin HCl 300 MG capsule 300 mg PO Q8H clarithromycin [Biaxin] 500 MG tablet 500 mg PO BID naproxen 500 mg tablet 500 mg PO BID PRN (Reason: pain) Qty: 20 0RF mupirocin 2 % ointment 1 applic topical BID Qty: 22 0RF Rx Instructions: apply to sores in nose doxycycline hyclate 100 mg capsule 100 mg PO BID Qty: 20 0RF clindamycin HCl 300 mg capsule 300 mg PO Q8H 7 Days Qty: 21 0RF levofloxacin 500 MG tablet 500 mg PO DAILY Qty: 7 0RF clindamycin HCl 300 MG capsule 300 mg PO Q6 Qty: 40 0RF clindamycin HCl 300 mg capsule 300 mg PO Q8H 10 Days Qty: 30 0RF Referrals Follow up/Referrals: Favian Ruiz MD [Primary Care Provider] - See instructions Activity Restrictions/Add. Instructions Additional Instructions/Restrictions: At this time it was felt you are safe to be discharged home. If new or worsening symptoms such as pus leaking from the wound, redness spreading up or down the leg please do not hesitate to return the emergency department. Please follow-up in 10 days with your family doctor for suture removal. Clinical Impressions Clinical Impression: Laceration of leg, Traumatic leg injury Discharge ED Provider: Shawn Bansal General Adult HPI General Stated complaint: [id number] RT leg lac Time Seen by Provider: 07/11/23 16:07 History of Present Illness HPI narrative: Patient is a 63-year-old female with no pertinent past medical history presents emergency department for evaluation of traumatic injury sustained prior to arrival. Patient bumped her right posterior calf into a car door causing a bleeding wound that causes her to present here for continued evaluation. No other acute complaints at this time. Tetanus not up-to-date. Related Data Home Medications Medication Instructions Recorded Confirmed albuterol sulfate 90 mcg/actuation 2 puff inhalation Q6H PRN soa 02/27/18 12/12/22 aerosol inhaler (Ventolin HFA) budesonide-formoterol HFA 160 2 puff inhalation BID soa 02/27/18 12/12/22 mcg-4.5 mcg/actuation aerosol inhaler (Symbicort) dexlansoprazole 60 mg 60 mg PO DAILY GERD 02/27/18 12/12/22 capsule,biphase delayed release (Dexilant) ipratropium 20 mcg-albuterol 100 1 puff inhalation Q6H soa 02/27/18 12/12/22 mcg/actuation mist for inhalation (Combivent Respimat) montelukast 10 mg tablet 10 mg PO QPM allergies 02/27/18 12/12/22 (Singulair) spironolactone 25 mg tablet 25 mg PO DAILY Fluid 02/27/18 12/12/22 clarithromycin 500 mg tablet 500 mg PO BID bronchitis 12/11/18 12/12/22 (Biaxin) clindamycin HCl 300 mg capsule 300 mg PO Q8H abx 12/11/18 12/12/22 prednisone 10 mg tablet 10 mg PO BID inflammation 12/11/18 12/12/22 Previous Rx's Medication Instructions Recorded metronidazole 500 mg tablet 500 mg PO TID dental infection 10 11/04/18 days #30 tabs ondansetron 4 mg disintegrating 4 mg PO TID PRN nausea and 11/14/18 tablet vomiting #15 tabs levofloxacin 500 mg tablet 500 mg PO DAILY #7 tabs 12/16/18 clindamycin HCl 300 mg capsule 300 mg PO Q6 #40 caps 01/27/22 clindamycin HCl 300 mg cap
[2023-07-11 17:10] VITALS: BP 167/102; PULSE 77; RESP 20; TEMP 36.7; O2SAT 98
== END 2023-07-11 17:15 | disposition home or self-care (01) ==
PROVIDERS: Emergency Provider Emergency Medicine; PCP Emergency Medicine
DX: S81.811A Laceration without foreign body, right lower leg, initial encounter (principal); W22.8XXA Striking against or struck by other objects, initial encounter
CPT/HCPCS: 12002; 90715; 96372; 99283

== ENCOUNTER 2023-09-19 11:43 | Emergency (ER) | payer MEDICARE, MEDICAID, SELFPAY ==
[2023-09-19 12:25] VITALS: BP 157/82; PULSE 83; RESP 20; TEMP 36.8; O2SAT 98; BMI 69.2
--- NOTE | 2023-09-19 12:46 | ED_ITS ---
Discharge Plan Disposition Patient Disposition: Home, Self-Care Condition: Good Prescriptions Prescriptions: New doxycycline hyclate 100 mg capsule 100 mg PO BID 7 Days Qty: 14 0RF mupirocin 2 % ointment 1 applic topical TID 10 Days Qty: 22 0RF Rx Instructions: apply to area as prescribed No Action spironolactone 25 mg tablet 25 mg PO DAILY albuterol sulfate [Ventolin HFA] 90 mcg/actuation HFA aerosol inhaler 2 puff INHALATION Q6H PRN (Reason: soa) budesonide-formoterol [Symbicort] 160-4.5 mcg/actuation HFA aerosol inhaler 2 puff INHALATION BID ipratropium-albuterol [Combivent Respimat] 20-100 mcg/actuation mist 1 puff INHALATION Q6H dexlansoprazole [Dexilant] 60 mg capsule,biphase delayed releas 60 mg PO DAILY montelukast [Singulair] 10 mg tablet 10 mg PO QPM metronidazole 500 mg tablet 500 mg PO TID 10 Days Qty: 30 0RF ondansetron 4 mg tablet,disintegrating 4 mg PO TID PRN (Reason: nausea and vomiting) Qty: 15 0RF prednisone 10 MG tablet 10 mg PO BID clindamycin HCl 300 MG capsule 300 mg PO Q8H clarithromycin [Biaxin] 500 MG tablet 500 mg PO BID naproxen 500 mg tablet 500 mg PO BID PRN (Reason: pain) Qty: 20 0RF mupirocin 2 % ointment 1 applic topical BID Qty: 22 0RF Rx Instructions: apply to sores in nose doxycycline hyclate 100 mg capsule 100 mg PO BID Qty: 20 0RF clindamycin HCl 300 mg capsule 300 mg PO Q8H 7 Days Qty: 21 0RF levofloxacin 500 MG tablet 500 mg PO DAILY Qty: 7 0RF clindamycin HCl 300 MG capsule 300 mg PO Q6 Qty: 40 0RF clindamycin HCl 300 mg capsule 300 mg PO Q8H 10 Days Qty: 30 0RF Referrals Follow up/Referrals: Favian Ruiz MD [Primary Care Provider] - See instructions Activity Restrictions/Add. Instructions Additional Instructions/Restrictions: Keep wound area clean and dry Take medication as prescribed Follow up with your Family Doctor next week for recheck to make sure infection is clearing Straight to ER if any life threatening symptoms Clinical Impressions Clinical Impression: Skin infection Instructions Patient Instructions: Doxycycline, Mupirocin Discharge ED Provider: Mandy Ashley [facility] General Stated complaint: right leg pain wound Mode of Arrival: Ambulatory Source of Information: Patient Limitations: No Limitations Time Seen by Provider: 09/19/23 12:46 Description of Symptoms (Recalled from Triage Doc. by RN): PATIENT STATES SHE HAD STITCHES PUT IN RIGHT LEG ON 08/01 AND IS WORRIED THAT IT MAY BE INFECTED OR NOT HEALING RIGHT. THE LAST STITCH WAS REMOVED AT HOME ON 09/02 HEENT Symptoms (Recalled from RN notes): No Resp Symptoms (Recalled from RN notes): No Skin Symptoms (Recalled from RN notes): Yes MS Symptoms (Recalled from RN notes): No Functional Status (Recalled from RN notes): WNL History of Present Illness Provider Complaint: Patient states that she had cut her right lower leg back in Jul and had to have stitches States that she seen her PCP and they took the stitches out but was unable to get one out States on Nomi her daughter was able to get it out but since then she thinks it may be infected States that area where the stitches was had some drainage come out of it and is getting hard and starting to look a little red so she came in to get checked before it got too bad Related Data Home Medications Medication Instructions Recorded Confirmed albuterol sulfate 90 mcg/actuation 2 puff inhalation Q6H PRN soa 02/27/18 12/12/22 aerosol inhaler (Ventolin HFA) budesonide-formoterol HFA 160 2 puff inhalation BID soa 02/27/18 12/12/22 mcg-4.5 mcg/actuation aerosol inhaler (Symbicort) dexlansoprazole 60 mg 60 mg PO DAILY GERD 02/27/18 12/12/22 capsule,biphase delayed release (Dexilant) ipratropium 20 mcg-albuterol 100 1 puff inhalation Q6H soa 02/27/18 12/12/22 mcg/actuation mist for inhalation (Combivent Respimat) montelukast 10 mg tablet 10 mg PO QPM allergies 02/27/18 12/12/22 (Singulair) spironolactone 25 mg tablet 25 mg PO DAILY Fluid 02/27/18 12/12/22 clarithromycin 500 mg tablet 500 mg PO BID bronchitis 12/11/18 12/12/22 (Biaxin) clindamycin HCl 300 mg capsule 300 mg PO Q8H abx 12/11/18 12/12/22 prednisone 10 mg tablet 10 mg PO BID inflammation 12/11/18 12/12/22 Previous Rx's Medication Instructions Recorded metronidazole 500 mg tablet 500 mg PO TID dental infection 10 11/04/18 days #30 tabs ondansetron 4 mg disintegrating 4 mg PO TID PRN nausea and 11/14/18 tablet vomiting #15 tabs levofloxacin 500 mg tablet 500 mg PO DAILY #7 tabs 12/16/18 clindamycin HCl 300 mg capsule 300 mg PO Q6 #40 caps 01/27/22 clindamycin HCl 300 mg capsule 300 mg PO Q8H 10 days #30 caps 05/04/22 naproxen 500 mg tablet 500 mg PO BID PRN pain #20 tabs 07/30/22 doxycycline hyclate 100 mg capsule 100 mg PO BID #20 caps 03/15/23 mupirocin 2 % topical ointment 1 applic topical BID #22 grams 03/15/23 clindamycin HCl 300 mg capsule 300 mg PO Q8H 7 days #21 caps 05/23/23 doxycycline hyclate 100 mg capsule 100 mg PO BID 7 days #14 caps 09/19/23 mupirocin 2 % topical ointment 1 applic topical TID 10 days #22 09/19/23 grams Allergies Allergy/AdvReac Type Severity Reaction Status Date / Time ampicillin [AMPICILLIN] Allergy Severe Rash Verified 12/12/22 09:43 cephalexin [From KEFLEX] Allergy Mild Verified 12/12/22 09:43 diclofenac [DICLOFENAC] Allergy Mild Verified 12/12/22 09:43 morphine [MORPHINE] Allergy Mild Verified 12/12/22 09:43 amoxicillin [From AUGMENTIN] Allergy Unknown Verified 12/12/22 09:43 clavulanic acid Allergy Unknown Verified 12/12/22 09:43 [From AUGMENTIN] Penicillins [PENICILLINS] Allergy Unknown Verified 12/12/22 09:43 azithromycin Allergy Rash Verified 12/12/22 09:43 Worker's Comp Is this a Worker's Comp case?: No [facility] PFS Disclaimer: The information contained in this section may have been updated after the patient was seen, as this information can be updated by other users. Social History Smoking Status: Never smoker alcohol intake: never substance use type: denies use current occupational status: employed Travel in the last 8 weeks: None household members: family housing: house ROS Obtained: Yes All systems reviewed & no additional complaints except as documented and Yes Systems reviewed as appropriate & no additional complaints except as documented ENT Ears, Nose, Mouth, and Throat: Reports system reviewed and no additional complaints, except as documented and Reports as per HPI Cardiovascular Cardiovascular: Reports system reviewed and no additional complaints, except as documented and Reports as per HPI Respiratory Respiratory: Reports system reviewed and no additional complaints, except as documented and Reports as per HPI Gastrointestinal Gastrointestingal: Reports system reviewed and no additional complaints, except as documented and as per HPI Integumentary/Breasts Skin/Breast: Reports system reviewed and no additional complaints, except as documented, Reports as per HPI and Reports other Comments: Possible infection from old laceration draining yesterday Physical Exam General General appearance: alert and in no apparent distress ENT ENT exam: Present mucous membranes moist Respiratory Respiratory exam: Present normal lung sounds bilaterally; Absent respiratory distress or wheezes Cardiovascular Cardiovascular exam: Present regular rate and normal heart sounds Neurological Exam Neurological exam: Present alert, oriented X3 and normal gait (walker) Skin Skin exam: Present other (small hard area noted from old wound, reports had drainage a few days ago appears slightly red and hard to the touch) Medical Decision Making Moody Inquiry Pt receiving controlled substance: No Vital Signs: 09/19/23 12:25 Temperature 98.3 F Temperature Source Oral Pulse Rate [Left Brachial] 83 Respiratory Rate 20 Blood Pressure [Left Arm] 157/82 H Blood Pressure Mean [Left Arm] 107 Blood Pressure Source [Left Arm] Automatic Cuff Blood Pressure Position [Left Arm] Sitting 02 Sat by Pulse Oximetry 98 Oxygen Delivery Method Room Air Medical Decision Narrative: medication discussed with pharmacy
[2023-09-19 13:02] VITALS: BP 157/82; PULSE 83; RESP 20; TEMP 36.8; O2SAT 98
== END 2023-09-19 13:05 | disposition home or self-care (01) ==
PROVIDERS: Emergency Provider Nurse Practitioner; PCP Emergency Medicine
DX: L08.9 Local infection of the skin and subcutaneous tissue, unspecified (principal); S81.811S Laceration without foreign body, right lower leg, sequela; X58.XXXS Exposure to other specified factors, sequela
CPT/HCPCS: 99212; 99214; G0463

== ENCOUNTER 2023-12-19 16:34 | Outpatient (CLI) | payer MEDICARE, MEDICAID, SELFPAY ==
[2023-12-19 18:10] LABS: 25-OH Vitamin D, Total 25.7 ng/mL (30-100)
== END 2023-12-19 23:59 | disposition home or self-care (01) ==
PROVIDERS: PCP Emergency Medicine; Visit Provider Nurse Practitioner Adult Health
DX: M85.80 Other specified disorders of bone density and structure, unspecified site (principal)
CPT/HCPCS: 36415; 82306

== ENCOUNTER 2023-12-22 10:52 | Emergency (ER) | payer MEDICARE, MEDICAID, SELFPAY ==
--- NOTE | 2023-12-22 10:51 | ECG_ITS ---
APPROVED REPORT Exam: Resting ECG HR:85 bpm ECG Measurements Heart Rate 85 AXES AK 146 P 74 QRSd 86 QRS 40 QT 340 T 42 QTc 383 Conclusion SINUS RHYTHM WITH SINUS ARRHYTHMIA LOW QRS VOLTAGE IN PRECORDIAL LEADS [QRS DEFLECTION < 1.0 mV IN CHEST LEADS] BORDERLINE ECG UNCONFIRMED REPORT Electronically signed by : Deshawn Rios, 12/22/2023 14:40:27
[2023-12-22 10:52] VITALS: BP 139/89; PULSE 91; RESP 20; TEMP 37.1; O2SAT 99; BMI 59.2
[2023-12-22 11:00] VITALS: BP 115/76; PULSE 86; RESP 18; O2SAT 100
--- NOTE | 2023-12-22 11:04 | CT_ITS ---
PROCEDURE INFORMATION: Exam: CTA Chest With Contrast Exam date and time: 12/22/2023 11:53 AM Age: 63 years old Clinical indication: Cough and dyspnea; Additional info: Dyspnea, cough, h/o sarcoid TECHNIQUE: Imaging protocol: Computed tomographic angiography of the chest with contrast. Exam focused on the arteries. 3D rendering (Not supervised by radiologist): MIP and/or 3D reconstructed images were created by the technologist. Radiation optimization: All CT scans at this facility use at least one of these dose optimization techniques: automated exposure control; mA and/or kV adjustment per patient size (includes targeted exams where dose is matched to clinical indication); or iterative reconstruction. Contrast material: ISOVUE 370; Contrast volume: 75 ml; Contrast route: INTRAVENOUS (IV); COMPARISON: CT ANGIO CHEST 07/30/2022 10:11 AM FINDINGS: Pulmonary arteries: No evidence of pulmonary embolus to the segmental level. Aorta: No aneurysm of the aorta. No dissection of the aorta. Lungs: Mild opacities in the lower lobes may represent atelectasis or pneumonia.. Pleural spaces: Unremarkable. No pneumothorax. No pleural effusion. Heart: Unremarkable. No cardiomegaly. No pericardial effusion. Lymph nodes: Unremarkable. No enlarged lymph nodes. Diaphragm: Mild hiatal hernia Kidneys and ureters: 5.8 cm mass in the medial left kidney was present in 2021. This may represent a renal cyst Bones/joints: Degenerative changes in both glenohumeral joints Soft tissues: Unremarkable. IMPRESSION: 1. No evidence of pulmonary embolus to the segmental level. 2. No aneurysm of the aorta. 3. No dissection of the aorta. 4. Mild opacities in the lower lobes may represent atelectasis or pneumonia.. COMMENTS: Consistent with the [employer]'s Incidental Findings Committee white paper (J Am Antonio Radiol 2018): Any incidental renal lesion less than 1 cm or classified as too small to characterize, or any incidental cystic renal lesion characterized as simple-appearing, is likely benign. No follow-up imaging is recommended for these lesions per consensus recommendations based on imaging criteria.
[2023-12-22 11:16] LABS: Chloride 111 mmol/L (98-107); Sodium 143 mmol/L (136-145)
[2023-12-22 11:18] LABS: Blood Urea Nitrogen 17 mg/dl (7-17); Creatinine Clearance Estimated 51 mL/min (50-200); Estimated Glomerular Filt Rate 85 ml/min (>60); GFR (African American) 103 ML/MIN (>60)
[2023-12-22 11:19] LABS: Alanine Aminotransferase 48 U/L (12-78); Albumin Level 3.9 g/dl (3.5-5.0); Albumin/Globulin Ratio 1.3 (1.1-1.8); Alkaline Phosphatase 104 U/L (38-126); Aspartate Amino Transferase 55 U/L (14-36); Bilirubin,Total 0.4 mg/dl (0.2-1.3); Carbon Dioxide 24 mmol/L (22.0-30.0); Total Protein,Serum 6.9 g/dl (6.3-8.2)
[2023-12-22 11:20] LABS: Calcium 9.1 mg/dl (8.4-10.2); Glucose 96 mg/dl (74-100)
[2023-12-22] MEDS: IPRATROPIUM/ALBUTEROL 3 ML NEB IH (11:22)
--- NOTE | 2023-12-22 11:22 | [facility].EDCP ---
Discharge Plan Disposition Patient Disposition: Home, Self-Care Prescriptions Prescriptions: No Action spironolactone 25 mg tablet 25 mg PO DAILY albuterol sulfate [Ventolin HFA] 90 mcg/actuation HFA aerosol inhaler 2 puff INHALATION Q6H PRN (Reason: soa) budesonide-formoterol [Symbicort] 160-4.5 mcg/actuation HFA aerosol inhaler 2 puff INHALATION BID ipratropium-albuterol [Combivent Respimat] 20-100 mcg/actuation mist 1 puff INHALATION Q6H dexlansoprazole [Dexilant] 60 mg capsule,biphase delayed releas 60 mg PO DAILY montelukast [Singulair] 10 mg tablet 10 mg PO QPM metronidazole 500 mg tablet 500 mg PO TID 10 Days Qty: 30 0RF ondansetron 4 mg tablet,disintegrating 4 mg PO TID PRN (Reason: nausea and vomiting) Qty: 15 0RF prednisone 10 MG tablet 10 mg PO BID clindamycin HCl 300 MG capsule 300 mg PO Q8H clarithromycin [Biaxin] 500 MG tablet 500 mg PO BID naproxen 500 mg tablet 500 mg PO BID PRN (Reason: pain) Qty: 20 0RF mupirocin 2 % ointment 1 applic topical BID Qty: 22 0RF Rx Instructions: apply to sores in nose doxycycline hyclate 100 mg capsule 100 mg PO BID Qty: 20 0RF clindamycin HCl 300 mg capsule 300 mg PO Q8H 7 Days Qty: 21 0RF doxycycline hyclate 100 mg capsule 100 mg PO BID 7 Days Qty: 14 0RF mupirocin 2 % ointment 1 applic topical TID 10 Days Qty: 22 0RF Rx Instructions: apply to area as prescribed levofloxacin 500 MG tablet 500 mg PO DAILY Qty: 7 0RF clindamycin HCl 300 MG capsule 300 mg PO Q6 Qty: 40 0RF clindamycin HCl 300 mg capsule 300 mg PO Q8H 10 Days Qty: 30 0RF Referrals Follow up/Referrals: Favian Ruiz MD [Primary Care Provider] - See instructions Marissa Best MD [Physician] - See instructions Activity Restrictions/Add. Instructions Additional Instructions/Restrictions: Please follow-up with a command and control return to the emergency room with any significant worsening symptoms. Take your albuterol inhaler that you already have at home as discussed. Clinical Impressions Clinical Impression: Pulmonary sarcoidosis, Immunosuppressed status, CAP (community acquired pneumonia) Discharge ED Provider: Blayne Rios HPI General Chief Complaint: Shortness of Breath/Dyspnea Stated Complaint: soa Time Seen by Provider: 12/22/23 10:55 Mode of Arrival: Ambulatory Source of Information: Patient Limitations: No Limitations Description of Symptoms (Recalled from ER Triage Doc. by RN): pt presents to ED with c/o chest tightness that begins in middle of chest, radiates into her back and from the waist up. pt reports symptoms ongoing for the past week. pt states that she thinks she may have upper respiratory infection. pt reports productive cough as well. History of Present Illness HPI narrative: Patient is a 63-year-old female who is morbidly obese oxygen dependent 3 L nasal cannula daily due to pulmonary sarcoidosis on 20 mg of daily prednisone for the last year who presents today with 2 weeks of cough and worsening fatigue and shortness of breath. She states that she has had this multiple times in the past and has improved with antibiotics. She is followed by command and control. Is not on any further immunosuppressant agents other than her chronic glucocorticoid therapy. Denies any lower extremity swelling any fevers has had some chills or any other chest pain etc. Related Data Home Medications Medication Instructions Recorded Confirmed albuterol sulfate 90 mcg/actuation 2 puff inhalation Q6H PRN soa 02/27/18 12/12/22 aerosol inhaler (Ventolin HFA) budesonide-formoterol HFA 160 2 puff inhalation BID soa 02/27/18 12/12/22 mcg-4.5 mcg/actuation aerosol inhaler (Symbicort) dexlansoprazole 60 mg 60 mg PO DAILY GERD 02/27/18 12/12/22 capsule,biphase delayed release (Dexilant) ipratropium 20 mcg-albuterol 100 1 puff inhalation Q6H soa 02/27/18 12/12/22 mcg/actuation mist for inhalation (Combivent Respimat) montelukast 10 mg tablet 10 mg PO QPM allergies 02/27/18 12/12/22 (Singulair) spironolactone 25 mg tablet 25 mg PO DAILY Fluid 02/27/18 12/12/22 clarithromycin 500 mg tablet 500 mg PO BID bronchitis 12/11/18 12/12/22 (Biaxin) clindamycin HCl 300 mg capsule 300 mg PO Q8H abx 12/11/18 12/12/22 prednisone 10 mg tablet 10 mg PO BID inflammation 12/11/18 12/12/22 Previous Rx's Medication Instructions Recorded metronidazole 500 mg tablet 500 mg PO TID dental infection 10 11/04/18 days #30 tabs ondansetron 4 mg disintegrating 4 mg PO TID PRN nausea and 11/14/18 tablet vomiting #15 tabs levofloxacin 500 mg tablet 500 mg PO DAILY #7 tabs 12/16/18 clindamycin HCl 300 mg capsule 300 mg PO Q6 #40 caps 01/27/22 clindamycin HCl 300 mg capsule 300 mg PO Q8H 10 days #30 caps 05/04/22 naproxen 500 mg tablet 500 mg PO BID PRN pain #20 tabs 07/30/22 doxycycline hyclate 100 mg capsule 100 mg PO BID #20 caps 03/15/23 mupirocin 2 % topical ointment 1 applic topical BID #22 grams 03/15/23 clindamycin HCl 300 mg capsule 300 mg PO Q8H 7 days #21 caps 05/23/23 doxycycline hyclate 100 mg capsule 100 mg PO BID 7 days #14 caps 09/19/23 mupirocin 2 % topical ointment 1 applic topical TID 10 days #22 09/19/23 grams Allergies Allergy/AdvReac Type Severity Reaction Status Date / Time ampicillin [AMPICILLIN] Allergy Severe Rash Verified 12/12/22 09:43 cephalexin [From KEFLEX] Allergy Mild Verified 12/12/22 09:43 diclofenac [DICLOFENAC] Allergy Mild Verified 12/12/22 09:43 morphine [MORPHINE] Allergy Mild Verified 12/12/22 09:43 amoxicillin [From AUGMENTIN] Allergy Unknown Verified 12/12/22 09:43 clavulanic acid Allergy Unknown Verified 12/12/22 09:43 [From AUGMENTIN] Penicillins [PENICILLINS] Allergy Unknown Verified 12/12/22 09:43 azithromycin Allergy Rash Verified 12/12/22 09:43 [facility] Disclaimer: The information contained in this section may have been updated after the patient was seen, as this information can be updated by other users. Social History Smoking Status: Never smoker alcohol intake: never substance use type: denies use current occupational status: employed Travel in the last 8 weeks: None household members: family housing: house ROS Obtained: Yes All systems reviewed & no additional complaints except as documented Physical Exam General General appearance: alert and in no apparent distress Respiratory Respiratory exam: Present normal lung sounds bilaterally and other (On 3 L nasal cannula oxygen saturations are 100%); Absent respiratory distress Cardiovascular Cardiovascular exam: Present regular rate and normal rhythm Neurological Exam Neurological exam: Present alert and oriented X3 HEART Score HEART Score HEART Score assessment performed?: Yes History (anamnesis): Slightly suspicious ECG: Normal Age: 45-65 years Risk factors: 1-2 risk factors Troponin: </= normal limit HEART Score: 2 Critical Care Critical Care Time Critical Care Time: No Medical Decision Making Moody Inquiry Pt receiving controlled substance: No Vital Signs Vital Signs: 12/22/23 10:52 12/22/23 11:00 12/22/23 12:01 Temperature 98.7 F Temperature Source Oral Pulse Rate 86 102 H Pulse Rate [Left Radial] 91 H Respiratory Rate 20 18 19 Blood Pressure 115/76 186/98 H Blood Pressure [Right Arm] 139/89 Blood Pressure Mean 88 Blood Pressure Mean [Right Arm] 105 02 Sat by Pulse Oximetry 99 100 96 Oxygen Delivery Method Nasal Cannula Nasal Cannula Oxygen Flow Rate (LPM) 3 3 12/22/23 12:31 Temperature Temperature Source Pulse Rate 91 H Pulse Rate [Left Radial] Respiratory Rate 15 Blood Pressure 155/97 H Blood Pressure [Right Arm] Blood Pressure Mean Blood Pressure Mean [Right Arm] 02 Sat by Pulse Oximetry 97 Oxygen Delivery Method Nasal Cannula Oxygen Flow Rate (LPM) Lab Data Lab results reviewed: Yes I reviewed the patient's lab results. Labs: Lab Results 12/22/23 10:57: WBC 10.7, RBC 4.74, Hgb 10.7 L, Hct 37.5, MCV 79.1 L, MCH 22.6 L, MCHC 28.5 L, RDW 17.8 H, Plt Count 404, MPV 9.1, Neut % (Auto) 77.0, Lymph % (Auto) 14.4, Faulk % (Auto) 6.8, Eos % (Auto) 1.1, Baso % (Auto) 0.8, Neut # (Auto) 8.2 H, Lymph # (Auto) 1.5, Faulk # (Auto) 0.7, Eos # (Auto) 0.1, Baso # (Auto) 0.1, Sodium 143, Potassium 4.0, Chloride 111 H, Carbon Dioxide 24, Anion Gap 12.0, BUN 17, Creatinine 0.70, Estimated Creat Clear 51, Estimated GFR 85, Est GFR ( Amer) 103, Glucose 96, Calcium 9.1, Total Bilirubin 0.4, AST 55 H, ALT 48, Alkaline Phosphatase 104, Troponin I < 0.01, Total Protein 6.9, Albumin 3.9, Globulin 3.0, Albumin/Globulin Ratio 1.3 12/22/23 11:23: VBG pH 7.35, VBG pCO2 36.5, VBG pO2 43.8 H, VBG HCO3 19.6 L, VBG Total CO2 20.7 L, VBG O2 Saturation 77.0 H, VBG Base Excess -6.0 L, VBG Lactic Acid 4.1 H 12/22/23 11:32: Lactate 1.8 12/22/23 11:33: SARS-CoV-2 (PCR) Not detected, Influenza A Untype (PCR) Not detected, Influenza Type B (PCR) Not detected 12/22/23 10:57 12/22/23 10:57 Response Orders (Tests/Meds): ED MEDICATIONS Generic Name Dose Route Start Last Admin Trade Name Freq PRN Reason Stop Dose Admin Levofloxacin 750 mg 12/22/23 12:51 Levofloxacin 750 Mg Tablet PO 12/22/23 12:52 ONCE ONE Sodium Chloride 10 ml 12/22/23 12:01 12/22/23 12:02 Sodium Chloride 0.9% 10ml Syr (Rad Only) IV 01/21/24 12:00 10 ml NEEDED PRN Administration Maintain IV Site Discontinued Medications Generic Name Dose Route Start Last Admin Trade Name Freq PRN Reason Stop Dose Admin Albuterol/Ipratropium 3 ml 12/22/23 11:04 12/22/23 11:22 Ipratropium/Albuterol 3 Ml Neb IH 12/22/23 11:05 3 ml ONCE ONE Administration Iopamidol 75 ml 12/22/23 12:01 12/22/23 12:02 Iopamidol-370 (76%);100ml Bottle IV 12/22/23 12:02 75 ml ONCE ONE Administration Sodium Chloride 50 ml 12/22/23 12:01 12/22/23 12:02 0.9 % Sodium Chloride 50 Ml Vial IV 12/22/23 12:02 50 ml ONCE ONE Administration ORDERS Category Date Time Status CT angio chest PE protocol Stat Cat Scan 12/22/23 11:04 Completed CBC w/Auto Diff [Complete Blood Count Auto Diff] Stat Lab 12/22/23 10:57 Completed CMP [Comprehensive Metabolic Panel] Stat Lab 12/22/23 10:57 Completed Lactic Acid Stat Lab 12/22/23 11:32 Completed Rapid PCR Covid and Flu A/B Stat Lab 12/22/23 11:33 Completed Trop I [Troponin I] Stat Lab 12/22/23 10:57 Completed Troponin I Q3H Lab 12/22/23 14:15 Ordered Troponin I Q3H Lab 12/22/23 17:15 Ordered Blood Culture Stat Micro 12/22/23 11:33 Received Venous Blood Gas Stat RT 12/22/23 11:23 Completed ECG Data Tracing #1: Attestation: I reviewed this ECG and interpreted as documented below: ECG Narrative: Ventricular rate of 85 sinus rhythm no acute ischemic changes noted no significant conduction abnormalities there is a normal axis MDM Narrative Medical Decision Narrative: 63-year-old female with above history and physical differential includes pulmonary embolism worsening sarcoidosis pulmonary fibrosis pneumonia bronchitis etc. Will get a CT of her chest to further evaluate this. Given the fact that she has had 2 weeks of symptoms and is having worsening symptoms and is immune suppressed we will have a low threshold to initiate antibiotics. Viral testing including COVID and flu have been initiated. DuoNeb is also been given. Will reassess shortly. Reassessment 12:[address] scan performed which I personally interpreted shows no pulmonary embolism no advanced fibrosis or advanced changes of sarcoidosis. Patient has many allergies and there is a small area of atelectasis versus pneumonia that I will treat clinically as pneumonia. She is on steroids chronically and only drug class that is left outside of macrolides and beta-lactam's is a fluoroquinolone for her. There is a significant concern for possible myositis or weakness associated with this or other side effects and she is aware of this. She was given her first dose of Levaquin in the ED and prescription sent and she has been advised to follow-up with command and control and return to the emergency room with any worsening symptoms. She was discharged in improved condition as well.
[2023-12-22 11:33] LABS: Troponin I < 0.01 ng/ml (0.00-0.034)
[2023-12-22 11:34] LABS: VBG HCO3 19.6 mmol/L (23-30); VBG PCO2 36.5 mmol/L (35-51); VBG PH 7.35 mmol/L (7.31-7.41); VBG PO2 43.8 mmol/L (28-40); VBG Total CO2 20.7 mmol/L (23-27)
[2023-12-22 11:38] LABS: Lactate Venous 4.1 mmol/L (0.4-2.0)
--- NOTE | 2023-12-22 11:40 | PC.NURSE ---
aware of VBG results
[2023-12-22 11:44] LABS: Basophils # 0.1 K/mm3 (0-0.2); Basophils % 0.8 % (0.1-2.0); Eosinophils # 0.1 K/mm3 (0.0-0.4); Eosinophils % 1.1 % (0.1-12.0); Hematocrit 37.5 % (37.0-47.0); Hemoglobin 10.7 g/dL (12.2-16.2); Lymphocytes # 1.5 K/mm3 (0.7-4.5); Lymphocytes % 14.4 % (10-50); Mean Corpuscular HGB Conc 28.5 g/dL (31.8-35.4); Mean Corpuscular Hemoglobin 22.6 pg (27.0-31.2); Mean Corpuscular Volume 79.1 fl (81-99); Mean Platelet Volume 9.1 fl (7.4-10.4); Monocytes # 0.7 K/mm3 (0.1-1.0); Monocytes % 6.8 % (1.7-9.3); Neutrophils # 8.2 K/mm3 (1.8-7.8); Platelet Count 404 K/mm3 (142-424); Red Blood Count 4.74 M/mm3 (4.20-5.40); Red Cell Distribution Width 17.8 % (11.5-17.5); White Blood Count 10.7 K/mm3 (4.8-10.8)
[2023-12-22 11:54] LABS: Lactic Acid 1.8 mmol/L (0.7-2.1)
[2023-12-22 12:01] VITALS: BP 186/98; PULSE 102; RESP 19; O2SAT 96
[2023-12-22] MEDS: 0.9 % SODIUM CHLORIDE 50 ML VIAL IV (12:02)
[2023-12-22] MEDS: SODIUM CHLORIDE 0.9% 10ML SYR (RAD ONLY) 10 ML IV (12:02)
[2023-12-22] MEDS: IOPAMIDOL-370 (76%);100ML BOTTLE 75 ML IV (12:02)
[2023-12-22 12:15] LABS: Coronavirus 19, PCR Not Detected (NotDetected); Influenza A, PCR Not Detected (NotDetected); Influenza B, PCR Not Detected (NotDetected)
[2023-12-22 12:31] VITALS: BP 155/97; PULSE 91; RESP 15; O2SAT 97
[2023-12-22] MEDS: levoFLOXacin 750 MG TABLET PO (12:57)
[2023-12-22 13:16] VITALS: BP 159/87; PULSE 89; RESP 20; TEMP 37.1; O2SAT 98
[2023-12-22 15:35] LABS: Reflex Lactic Add Lactic Reflex
== END 2023-12-22 13:18 | disposition home or self-care (01) ==
PROVIDERS: Emergency Provider Student in an Organized Health Care Education/Training Program; PCP Emergency Medicine
DX: J18.9 Pneumonia, unspecified organism (principal); I49.9 Cardiac arrhythmia, unspecified; D86.0 Sarcoidosis of lung; D84.9 Immunodeficiency, unspecified
CPT/HCPCS: 71275; 80053; 82803; 83605; 84484; 85025; 87040; 87636; 93005; 99285; Q9967

== ENCOUNTER 2023-12-30 13:17 | Outpatient (CLI) | payer MEDICARE, MEDICAID, SELFPAY ==
--- NOTE | 2023-12-30 13:21 | XR_ITS ---
FINAL REPORT TECHNIQUE: Chest PA & Lateral CLINICAL HISTORY: PNEUMONIA COMPARISON: 12/11/2018 FINDINGS: 2 views of the chest were performed. The heart size is normal. The mediastinum is within normal limits. Mild atelectasis is present in the right perihilar region. No confluent infiltrates are identified. There are no pleural effusions. There is no pneumothorax. The bony thorax appears intact. IMPRESSION: Mild atelectasis is present in the right perihilar region, without confluent infiltrates identified. Reviewed, Interpreted and Dictated by Isael Farrell MD Transcribed by Lauren Hauser Authenticated and [facility]
== END 2023-12-30 23:59 | disposition home or self-care (01) ==
LOC: RAD 13:18
PROVIDERS: PCP Emergency Medicine; Visit Provider Emergency Medicine
DX: J18.9 Pneumonia, unspecified organism (principal)
CPT/HCPCS: 71046

== ENCOUNTER 2024-02-03 15:05 | Emergency (ER) | payer MEDICARE, MEDICAID, SELFPAY ==
[2024-02-03 15:35] VITALS: BP 141/88; PULSE 105; RESP 20; TEMP 36.8; O2SAT 97; BMI 58.2
--- NOTE | 2024-02-03 16:11 | ED_ITS ---
Discharge Plan Disposition Patient Disposition: Home, Self-Care Condition: Good Prescriptions Prescriptions: New nystatin 100,000 unit/mL suspension 4 ml PO QID 10 Days Qty: 160 0RF Rx Instructions: administer 1/2 of dose in each side of the mouth swish and spit No Action prednisone 20 mg tablet 20 mg PO DAILY Patient Comments: TAKE 1 TABLET BY MOUTH EVERY DAY spironolactone 25 mg tablet 25 mg PO DAILY Patient Comments: TAKE 1 TABLET BY MOUTH EVERY DAY albuterol sulfate 90 mcg/actuation HFA aerosol inhaler 2 puff INHALATION Q6HP PRN (Reason: SOA) Patient Comments: INHALE 2 PUFFS BY MOUTH EVERY 6 HOURS NEEDED Combivent Respimat 20-100 mcg/actuation mist 1 puff INHALATION QID Patient Comments: INHALE 1 PUFF BY MOUTH FOUR TIMES DAILY Breztri Aerosphere 160-9-4.8 mcg/actuation HFA aerosol inhaler 2 puff INHALATION BID Patient Comments: INHALE 2 PUFFS BY MOUTH TWICE DAILY Referrals Follow up/Referrals: Favian Ruiz MD [Primary Care Provider] - See instructions Activity Restrictions/Add. Instructions Additional Instructions/Restrictions: Use nystatin as prescribed Follow up with your Family Doctor if no improvement or any worsening of symptoms Return if needed Clinical Impressions Clinical Impression: Candidiasis of mouth Instructions Patient Instructions: DI for Thrush, Thrush-Adult Discharge ED Provider: Mandy Ashley [facility] [place] General Stated complaint: sore throat Mode of Arrival: Ambulatory Source of Information: Patient Limitations: No Limitations Time Seen by Provider: 02/03/24 16:11 Description of Symptoms (Recalled from Triage Doc. by RN): PATIENT C/O THRUSH IN MOUTH X 3 DAYS HEENT Symptoms (Recalled from RN notes): Yes Resp Symptoms (Recalled from RN notes): No Skin Symptoms (Recalled from RN notes): No MS Symptoms (Recalled from RN notes): No Functional Status (Recalled from RN notes): WNL History of Present Illness Provider Complaint: Patient states that she thinks she may have thrush in her mouth States that she has been having white patchy like areas on her throat and tongue like she has when she has thrush so she came Related Data Home Medications Medication Instructions Recorded Confirmed albuterol sulfate 90 mcg/actuation 2 puff inhalation Q6HP PRN SOA 02/03/24 02/03/24 aerosol inhaler budesonide 160 mcg-glycopyr 9 2 puff inhalation BID 02/03/24 02/03/24 mcg-formot 4.8 mcg/actuation HFA inhaler (Breztri Aerosphere) ipratropium 20 mcg-albuterol 100 1 puff inhalation QID 02/03/24 02/03/24 mcg/actuation mist for inhalation (Combivent Respimat) prednisone 20 mg tablet 20 mg PO DAILY 02/03/24 02/03/24 spironolactone 25 mg tablet 25 mg PO DAILY 02/03/24 02/03/24 Previous Rx's Medication Instructions Recorded nystatin 100,000 unit/mL oral 4 ml PO QID 10 days #160 mL 02/03/24 suspension Allergies Allergy/AdvReac Type Severity Reaction Status Date / Time ampicillin [AMPICILLIN] Allergy Severe Rash Verified 12/12/22 09:43 cephalexin [From KEFLEX] Allergy Mild Verified 12/12/22 09:43 diclofenac [DICLOFENAC] Allergy Mild Verified 12/12/22 09:43 morphine [MORPHINE] Allergy Mild Verified 12/12/22 09:43 amoxicillin [From AUGMENTIN] Allergy Unknown Verified 12/12/22 09:43 clavulanic acid Allergy Unknown Verified 12/12/22 09:43 [From AUGMENTIN] Penicillins [PENICILLINS] Allergy Unknown Verified 12/12/22 09:43 azithromycin Allergy Rash Verified 12/12/22 09:43 Worker's Comp Is this a Worker's Comp case?: No [facility] Disclaimer: The information contained in this section may have been updated after the patient was seen, as this information can be updated by other users. Social History Smoking Status: Never smoker alcohol intake: never substance use type: denies use current occupational status: employed Travel in the last 8 weeks: None household members: family housing: house ROS Obtained: Yes All systems reviewed & no additional complaints except as documented and Yes Systems reviewed as appropriate & no additional complaints except as documented Constitutional Constitutional: Reports system reviewed and no additional complaints, except as documented and Reports as per HPI ENT Ears, Nose, Mouth, and Throat: Reports system reviewed and no additional complaints, except as documented, Reports as per HPI and Reports other (thrush in mouth) Cardiovascular Cardiovascular: Reports system reviewed and no additional complaints, except as documented and Reports as per HPI Respiratory Respiratory: Reports system reviewed and no additional complaints, except as documented and Reports as per HPI Gastrointestinal Gastrointestingal: Reports system reviewed and no additional complaints, except as documented and as per HPI Physical Exam General General appearance: alert and in no apparent distress ENT ENT exam: Present mucous membranes moist Expanded ENT Exam Mouth exam: Present other (white patchy like area noted on tongue appears like thrush) Respiratory Respiratory exam: Present normal lung sounds bilaterally; Absent respiratory distress or wheezes Cardiovascular Cardiovascular exam: Present regular rate, normal rhythm and normal heart sounds Neurological Exam Neurological exam: Present alert, oriented X3 and normal gait Medical Decision Making Moody Inquiry Pt receiving controlled substance: No Moody was queried for this patient: No Vital Signs: 02/03/24 15:35 Temperature 98.2 F Temperature Source Oral Pulse Rate [Left Brachial] 105 H Respiratory Rate 20 Blood Pressure [Left Arm] 141/88 H Blood Pressure Mean [Left Arm] 105 Blood Pressure Source [Left Arm] Automatic Cuff Blood Pressure Position [Left Arm] Sitting 02 Sat by Pulse Oximetry 97 Oxygen Delivery Method Room Air
[2024-02-03 16:28] VITALS: BP 141/88; PULSE 105; RESP 20; TEMP 36.8; O2SAT 97
== END 2024-02-03 16:32 | disposition home or self-care (01) ==
PROVIDERS: Emergency Provider Nurse Practitioner; PCP Emergency Medicine
DX: B37.0 Candidal stomatitis (principal)
CPT/HCPCS: 99212; 99214; G0463

== ENCOUNTER 2024-04-21 15:53 | Emergency (ER) | payer MEDICARE, MEDICAID, SELFPAY ==
[2024-04-21 15:55] VITALS: BP 155/95; PULSE 90; RESP 18; TEMP 36.9; O2SAT 97; BMI 61.7
--- NOTE | 2024-04-21 16:42 | ED_ITS ---
<Statement entered by Blayne Rios MD - 04/27/24 07:01> I was consulted by the NEELIMA, and we discussed the complexity of the problems being addressed. I approved the treatment and management plan for this patient's care in the emergency department, thus performing a substantive portion of the medical decision making. Blayne Rios MD, MARLENE, FACEP Discharge Plan Disposition Patient Disposition: Home, Self-Care Condition: Good Prescriptions Prescriptions: No Action prednisone 20 mg tablet 20 mg PO DAILY Patient Comments: TAKE 1 TABLET BY MOUTH EVERY DAY spironolactone 25 mg tablet 25 mg PO DAILY Patient Comments: TAKE 1 TABLET BY MOUTH EVERY DAY albuterol sulfate 90 mcg/actuation HFA aerosol inhaler 2 puff INHALATION Q6HP PRN (Reason: SOA) Patient Comments: INHALE 2 PUFFS BY MOUTH EVERY 6 HOURS NEEDED Combivent Respimat 20-100 mcg/actuation mist 1 puff INHALATION QID Patient Comments: INHALE 1 PUFF BY MOUTH FOUR TIMES DAILY Breztri Aerosphere 160-9-4.8 mcg/actuation HFA aerosol inhaler 2 puff INHALATION BID Patient Comments: INHALE 2 PUFFS BY MOUTH TWICE DAILY nystatin 100,000 unit/mL suspension 4 ml PO QID 10 Days Qty: 160 0RF Rx Instructions: administer 1/2 of dose in each side of the mouth swish and spit Referrals Follow up/Referrals: Favian Ruiz MD [Primary Care Provider] - See instructions Activity Restrictions/Add. Instructions Additional Instructions/Restrictions: Return to the ER for any worsening signs or symptoms including redness pain swelling fever. Follow-up with your PCP for wound check within 1 week. Clinical Impressions Clinical Impression: Contusion of right tibia Print Language Print Language: Lithuanian Discharge ED Provider: Dangelo Glass General Adult HPI General Chief complaint: Skin/Abscess/Foreign Body Stated complaint: AO08/02 RT leg inj Time Seen by Provider: 04/21/24 16:42 History of Present Illness HPI narrative: Patient presents for evaluation of right tibia injury. Patient fell several weeks ago injuring her right lower tibia. Patient is concerned because it is very painful and is worried about sepsis. She denies chest pain fever chills hemoptysis hematochezia melena nausea vomiting diarrhea. She reports the area is not red she has no inability to walk no palpable cords Related Data Home Medications ?Medication ?Instructions ?Recorded ?Confirmed albuterol sulfate 90 mcg/actuation 2 puff inhalation Q6HP PRN SOA 02/03/24 02/03/24 aerosol inhaler budesonide 160 mcg-glycopyr 9 2 puff inhalation BID 02/03/24 02/03/24 mcg-formot 4.8 mcg/actuation HFA inhaler (Breztri Aerosphere) ipratropium 20 mcg-albuterol 100 1 puff inhalation QID 02/03/24 02/03/24 mcg/actuation mist for inhalation (Combivent Respimat) prednisone 20 mg tablet 20 mg PO DAILY 02/03/24 02/03/24 spironolactone 25 mg tablet 25 mg PO DAILY 02/03/24 02/03/24 Previous Rx's ?Medication ?Instructions ?Recorded nystatin 100,000 unit/mL oral 4 ml PO QID 10 days #160 mL 02/03/24 suspension Allergies Allergy/AdvReac Type Severity Reaction Status Date / Time ampicillin [AMPICILLIN] Allergy Severe Rash Verified 12/12/22 09:43 cephalexin [From KEFLEX] Allergy Mild Verified 12/12/22 09:43 diclofenac [DICLOFENAC] Allergy Mild Verified 12/12/22 09:43 morphine [MORPHINE] Allergy Mild Verified 12/12/22 09:43 amoxicillin [From AUGMENTIN] Allergy Unknown Verified 12/12/22 09:43 clavulanic acid Allergy Unknown Verified 12/12/22 09:43 [From AUGMENTIN] Penicillins [PENICILLINS] Allergy Unknown Verified 12/12/22 09:43 azithromycin Allergy Rash Verified 12/12/22 09:43 [facility] Disclaimer: The information contained in this section may have been updated after the patient was seen, as this information can be updated by other users. Social History Smoking Status: Never smoker alcohol intake: never substance use type: denies use current occupational status: employed Travel in the last 8 weeks: None household members: family housing: house ROS Obtained: Yes Systems reviewed as appropriate & no additional complaints except as documented Physical Exam General General appearance: alert and in no apparent distress Respiratory Respiratory exam: Present normal lung sounds bilaterally Cardiovascular Cardiovascular exam: Present regular rate and normal rhythm Expanded Lower Extremity Exam Right: Leg image: 2 1. 5 cm contusion anterior tibia. No palpable bony deformity. Tender to palpation. No erythema induration skin breakdown fluctuance Neurological Exam Neurological exam: Present alert and oriented X3 Medical Decision Making Medical Records Medical records reviewed: Yes I reviewed the patient's medical records. Moody Inquiry Pt receiving controlled substance: No Vital Signs: 04/21/24 15:55 04/21/24 20:13 Temperature 98.5 F 98.2 F Temperature Source Oral Oral Pulse Rate 75 Pulse Rate [Radial] 90 Respiratory Rate 18 19 Blood Pressure 108/75 L Blood Pressure [Left Arm] 155/95 H Blood Pressure Mean [Left Arm] 115 Blood Pressure Source Automatic Cuff Blood Pressure Source [Left Arm] Automatic Cuff Blood Pressure Position Sitting 02 Sat by Pulse Oximetry 97 Oxygen Delivery Method Room Air Room Air Lab Data Lab results reviewed: Yes I reviewed the patient's lab results. Lab Results 04/21/24 18:49: WBC 9.0, RBC 5.06, Hgb 11.5 L, Hct 39.9, MCV 78.7 L, MCH 22.7 L, MCHC 28.9 L, RDW 18.8 H, Plt Count 383, MPV 9.0, Neut % (Auto) 69.7, Lymph % (Auto) 22.0, [place] % (Auto) 6.2, Eos % (Auto) 1.5, Baso % (Auto) 0.6, Neut # (Auto) 6.3, Lymph # (Auto) 2.0, [place] # (Auto) 0.6, Eos # (Auto) 0.1, Baso # (Auto) 0.1, Sodium 141, Potassium 5.0, Chloride 113 H, Carbon Dioxide 27, Anion Gap 6.0, BUN 15, Creatinine 0.70, Estimated Creat Clear 50, Estimated GFR 85, Est GFR ( Amer) 103, Glucose 89, Calcium 8.9, Magnesium 2.3, Total Bilirubin 0.6, AST 54 H, ALT 34, Alkaline Phosphatase 96, Total Protein 7.6, Albumin 4.2, Globulin 3.4 H, Albumin/Globulin Ratio 1.2 04/21/24 18:49 04/21/24 18:49 Orders (Tests/Meds): ED MEDICATIONS Discontinued Medications Generic Name Dose Route Start Last Admin Trade Name Freq PRN Reason Stop Dose Admin Acetaminophen 1,000 mg 04/21/24 17:01 08/13/24 17:49 Acetaminophen 500mg Tab PO 04/21/24 17:02 1,000 mg ONCE ONE Administration ORDERS Category Date Time Status POCUS Point of Care (ER Only) Stat Exams 04/21/24 17:03 Completed Tibia/fibula XR right 2 views [XR tibia fibula RT 2V] Exams 04/21/24 17:00 Completed Stat CBC w/Auto Diff [Complete Blood Count Auto Diff] Stat Lab 04/21/24 18:49 Completed CMP [Comprehensive Metabolic Panel] Stat Lab 04/21/24 18:49 Completed Magnesium Stat Lab 04/21/24 18:49 Completed Medical Decision Narrative: In summary patient is a 64-year-old female who presents to the emergency department for evaluation of right tibia injury. Patient is hemodynamically stable upon arrival, afebrile. Physical exam is remarkable for a contusion to the right anterior tibia with no evidence of bony deformity fluctuance erythema edema induration. No palpable cords.. Differential diagnosis includes contusion versus occult fracture versus hematoma. Initial workup will be conducted with hematologic labs plain film x-ray. Initial interventions include Toradol Tylenol. Initial workup reviewed by me shows her hematologic labs are nonactionable and my informal interpretation of her x-ray shows no acute fracture. Upon repeat evaluation patient did have interval improvement in her discomfort. Given this patient is appropriate for discharge close follow-up with her PCP and strict return precautions. Critical Care Critical Care Time Critical Care Time: No
--- NOTE | 2024-04-21 17:00 | XR_ITS ---
PROCEDURE INFORMATION: Exam: XR Right Tibia and Fibula Exam date and time: 04/21/2024 5:17 PM Age: 64 years old Clinical indication: Lower leg; Right; Patient HX: PT states pain and hot to the touch; Additional info: Trauma TECHNIQUE: Imaging protocol: Radiologic exam of the right tibia and fibula. Views: 2 views. COMPARISON: No relevant prior studies available. FINDINGS: Bones/joints: Severe tricompartmental degenerative changes, with uhqi-rl-csdo articulation. Soft tissues: Normal. IMPRESSION: Severe tricompartmental degenerative changes, with kwmu-wj-wyeg articulation.
[2024-04-21] MEDS: ACETAMINOPHEN 500MG TAB 1000 MG PO (17:49)
[2024-04-21 19:01] LABS: Basophils # 0.1 K/mm3 (0-0.2); Basophils % 0.6 % (0.1-2.0); Eosinophils # 0.1 K/mm3 (0.0-0.4); Eosinophils % 1.5 % (0.1-12.0); Hematocrit 39.9 % (37.0-47.0); Hemoglobin 11.5 g/dL (12.2-16.2); Mean Corpuscular HGB Conc 28.9 g/dL (31.8-35.4); Mean Corpuscular Hemoglobin 22.7 pg (27.0-31.2); Mean Corpuscular Volume 78.7 fl (81-99); Monocytes # 0.6 K/mm3 (0.1-1.0); Monocytes % 6.2 % (1.7-9.3); Neutrophils # 6.3 K/mm3 (1.8-7.8); Neutrophils % 69.7 % (37.0-80.0); Platelet Count 383 K/mm3 (142-424); Red Blood Count 5.06 M/mm3 (4.20-5.40); Red Cell Distribution Width 18.8 % (11.5-17.5)
[2024-04-21 19:10] LABS: Albumin Level 4.2 g/dl (3.5-5.0); Chloride 113 mmol/L (98-107); Sodium 141 mmol/L (136-145)
[2024-04-21 19:13] LABS: Alanine Aminotransferase 34 U/L (12-78); Albumin/Globulin Ratio 1.2 (1.1-1.8); Aspartate Amino Transferase 54 U/L (14-36); Blood Urea Nitrogen 15 mg/dl (7-17); Carbon Dioxide 27 mmol/L (22.0-30.0); Creatinine Clearance Estimated 50 mL/min (50-200); Estimated Glomerular Filt Rate 85 ml/min (>60); GFR (African American) 103 ML/MIN (>60); Globulin 3.4 g/dL (1.3-3.2); Total Protein,Serum 7.6 g/dl (6.3-8.2)
[2024-04-21 19:14] LABS: Alkaline Phosphatase 96 U/L (38-126); Bilirubin,Total 0.6 mg/dl (0.2-1.3); Calcium 8.9 mg/dl (8.4-10.2); Glucose 89 mg/dl (74-100)
[2024-04-21 19:35] LABS: Magnesium 2.3 mg/dl (1.6-2.3)
[2024-04-21 20:13] VITALS: BP 108/75; PULSE 75; RESP 19; TEMP 36.8; O2SAT 98
--- NOTE | 2024-04-21 20:17 | PC.NURSE ---
Assisted patient to vehicle to help with placing her walker in the bed of the truck. Safely ensured patient made it into the vehicle and offered assistance.
== END 2024-04-21 20:39 | disposition home or self-care (01) ==
PROVIDERS: Emergency Provider Physician Assistant; PCP Emergency Medicine
DX: S80.11XA Contusion of right lower leg, initial encounter (principal); W19.XXXA Unspecified fall, initial encounter
CPT/HCPCS: 73590; 80053; 83735; 85025; 99283

== ENCOUNTER 2024-07-24 10:00 | Outpatient (RCR) | payer MEDICARE, MEDICAID, SELFPAY | END 2024-07-24 23:59 | disposition home or self-care (01) | LOC: PT 10:00 | PROVIDERS: PCP Emergency Medicine; Visit Provider Orthopaedic Surgery | DX: M17.0 Bilateral primary osteoarthritis of knee (principal); M25.362 Other instability, left knee | CPT/HCPCS: 97014; 97110; 97163; 97164; 97530; G0283 ==

== ENCOUNTER 2025-04-09 14:02 | Emergency (ER) | payer MEDICARE, MEDICAID, SELFPAY ==
--- OUTSIDE RECORDS SUMMARY | 2020-12-26 09:47 | XMS_ITS | Encounter Summary ---
[facility] [address] [place] [address] Care Team Providers Care Civil Engineering Project Designer Name Role Phone Db uKrtz MD Primary Care Provider [phone] Encounter Details Date Type Department Care Team (Late Contact Info) Description 12/26/2020 9:47 AM EDT Hospital Encounter [facility] [address] [place] [phone] Social History Tobacco Use Types Packs/Day Years Used Date Smoking Tobacco: Never Smokeless Tobacco: Never Alcohol Use Standard Drinks/Week Comments No 0 (1 standard drink = 0.6 oz pur e alcohol) Comments No Sex and Gender Information Value Date Recorded Sex Assigned at Not on file Legal Sex Female 10:09 AM EDT Gender Identity Not on file Sexual Orientation Not on file 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, 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 Not on file Not on fi le documented as of this encounter Plan of Treatment Upcoming Encounters Date Type Department Care Team (Late Contact Info) Description 04/26/2025 1:15 PM EDT Registration [facility] [address] [facility] [address] [place] [address] 04/26/2025 1:30 PM EDT Office Visit [facility] [address] [facility] [address] [place] [address] 04/26/2025 2:00 PM EDT Office Visit [facility] [address] [facility] [address] [place] [address] Natalie Salazar, SOCIAL WORK SPECIALIST [address] [place] [address] documented as of this encounter Procedures Procedure Name Priority Date/Time Associated Diagnosis Comments XR CHEST PA AND LATERAL Routine 12/26/2020 10:16 AM EDT Sarcoidosis documented in this encounter Results * XR Chest PA & Lateral (12/26/2020 10:16 AM EDT) Anatomical Region Laterality Modality Body, Chest N/A Radiographic Taryn ging Narrative 12/29/2020 5:03 PM EDT trachea midline, hilar fullness, cardiomegaly, cardiophrenic and costophrenic angles clear, no obvious chronic lung disease. us Sam Jordan MD IMG DIAGNOSTIC TARYN GING ORDERABLES Final Result documented in this encounter Visit Diagnoses Not on filedocumented in this encounter Care Teams Civil Engineering Project Designer Relationship Specialty Start Date End Date Db Kurtz MD [address] [facility] [place] [address] PCP - General Family Medicine 07/11/16 05/07/21 documented as of this encounter
--- OUTSIDE RECORDS SUMMARY | 2021-01-30 13:30 | XMS_ITS | Encounter Summary ---
[facility] [address] [place] [address] Care Team Providers Care [place] Operator Name Role Phone Db Kurtz MD Primary Care Provider [phone] Reason for Referral * Hospital - Outpatient (Routine) - Closed Specialty Diagnoses / Procedures Referred By Stacy rowe Referred To Contact Sleep Medicine Diagnoses CRISTELA (obstructive sleep apnea) Procedures Home Sleep Study Sam Jordan MD Phone: tel: fax: [facility] [address] [place] [address] Phone: tel: fax: Referral ID Status Reason Start Date Expiration Date Visits Re quested Visits Authorized [id number] Closed 01/11/2021 03/11/2021 1 1 Reason for Visit * Hospital - Outpatient (Routine) - Closed Specialty Diagnoses / Procedures Referred By Stacy rowe Referred To Contact Sleep Medicine Diagnoses CRISTELA (obstructive sleep apnea) Procedures Home Sleep Study Sam Jordan MD Phone: tel: fax: [facility] [address] [address] Phone: tel: fax: Referral ID Status Reason Start Date Expiration Date Visits Re quested Visits Authorized [id number] Closed 01/11/2021 03/11/2021 1 1 Encounter Details Date Type Department Care Team (Latest Contact Info) Description 01/30/2021 1:30 PM EDT Hospital Encounter [facility] [address] [facility] [address] [place] [address] Sam Jordan MD [address] [place] [address] CRISTELA (obstructive sleep apnea) Social History Tobacco Use Types Packs/Day Years [...] 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, 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 Not on file Not on fi le documented as of this encounter Last Filed Vital Signs Vital Sign Reading Time Taken Comments Blood Pressure - - Pulse - - Temperature - - Respiratory Rate - - Oxygen Saturation - - Inhaled Oxygen Concentration - - Weight 140 kg (308 lb) 01/30/2021 1:02 PM EDT Height 165.1 cm (5' 5 ) 01/30/2021 1:02 PM EDT Body Mass Index 51.25 01/30/2021 1:02 PM EDT documented in this encounter Miscellaneous Notes * Significant Note - Mandy Smith RRT, JAMES, RST - 01/30/2021 1:05 PM EDT Summary: [place] not available until patient completes sleep questionnaire Patient given sleep questionnaire to complete at home and return with device documented in this encounter Plan of Treatment Upcoming Encounters Date Type Department Care Team (Late st Contact Info) Description 04/26/2025 1:15 PM EDT Registration [facility] MEDICINE [address] [facility] [address] [place] [address] 04/26/2025 1:30 PM EDT Office Visit [facility]ARE MEDICINE [address] [facility] [address] [place] [address] 04/26/2025 2:00 PM EDT Office Visit [facility] MEDIC[facility] [address] [facility] [address] [place] [address] Natalie Salazar, TELEHEALTH NURSE EDUCATOR [address] [place] [address] documented as of this encounter Procedures Procedure Name Priority Date/Time Associated Diagnosis Comments WATCHPAT Routine 01/31/2021 10:00 AM EDT CRISTELA (obstructive sleep apnea) documented in this encounter Results * WATCHPAT (01/31/2021 10:00 AM EDT) Narrative Yovani Marin MD - 02/02/2021 5:07 PM EDT Polysomnography Report Patient Name: Génesis Corrales Interpreting Physician: Yovani Marin MD Date of : 1960 Referring Physician: No info available Primary Care Physician: Db Kurtz MD Date of Study: Clinical Information Patient is a 60-year-old female with a history of reported CRISTELA not on CPAP therapy. She saw Dr. Sam Jordan in the pulmonary office for dyspnea and described snoring and EDS. A home sleep apnea test was ordered. Methods used for Home Sleep Testing: Patient had a home sleep test using an WatchPat device that uses peripheral arterial tone to measure arterial volume changes at the fingertip showing sympathetic nervous system activation. Sleep stages are determined based on signal characteristics and built in actigraphy can help determine sleep/wake periods. Both signal attenuation and pulse rate determine arousals correlating with respiratory events, and the pulse oximeter sensor determines blood oxygen saturations. Snoring and body position is determined through an intergrated sensor measuring decibals and actigraphy. Home Sleep Testing Results TOTAL RECORDING TIME: Total Recording Time (TIB) (min): 405 minutes TOTAL MONITORING TIME: Total Sleep Time (TST)(min): 305 minutes SLEEP LATENCY: Sleep Latency (min): 19 Respiratory Data OBSTRUCTIVE APNEA INDEX No data recorded OBSTRUCTIVE APNEA TOTAL No data recorded CENTRAL APNEA INDEX No data recorded CENTRAL APNEA TOTAL No data recorded MIXED APNEA INDEX No data recorded MIXED APNEA TOTAL No data recorded OBSTRUCTIVE HYPOPNEA INDEX No data recorded OBSTRUCTIVE HYPOPNEA TOTAL No data recorded TOTAL APNEA INDEX No data recorded AHI/KOMAL: AHI: 9.2 RDI: RDI (if applicable): 9.4 OCCURRENCE OF JOHN ALEXANDER Occurrence of John Alexander Breathing: no DURATION OF JOHN ALEXANDER No data recorded Cardiac AVG HR DURING SLEEP Avg HR During Sleep: 83 bpm HIGHEST HR DURING SLEEP Highest HR During Sleep: 97 bpm Oximetry MIN SPO2 Min SpO2: 83 % O2 SATURATION, MEAN VALUE Arterial Oxygen Saturation, Mean Value (%): 92 % Diagnostic Respiratory Index Summary by Body Position Supine AHI/KOMAL, TOTAL AHI, TOTAL : 8.8 RDI, TOTAL RDI, TOTAL : 9 Duration (Min) Duration (min) : 321 Left AHI/KOMAL, TOTAL AHI, TOTAL : 14.7 RDI, TOTAL RDI, TOTAL : 14.7 Duration (Min) Duration (min) : 25.2 Right AHI/KOMAL, TOTAL No data recorded RDI, TOTAL No data recorded Duration (Min) No data recorded Prone AHI/KOMAL, TOTAL No data recorded RDI, TOTAL No data recorded Duration (Min) No data recorded Upright AHI/KOMAL, TOTAL No data recorded RDI, TOTAL No data recorded Duration (Min) No data recorded Impression: The study was technically adequate. 305 minutes of total sleep time was recorded. The AHI was mildly elevated 9.2. It was significantly higher during REM sleep at 31.7. Significant snoring was noted for 67% of the sleep time. Minimum oxygen saturation was 83% with an average saturation of 92%. - mild obstructive sleep apnea is present. - Oxygen desaturation is present. - Snoring is present. Plan: - Recommend trial of CPAP such as AutoSet with an 8 cm minimum an 18 cm maximum. - Recommend weight loss. Follow-up: Vargas Jordan MD Electronically signed by: Yovani Marin MD 02/02/21 17:04 EDT us Sam Jordan MD SLEEP CENTER ORDER RANGEL Final Result documented in this encounter Visit Diagnoses Diagnosis CRISTELA (obstructive sleep apnea) Obstructive sleep apnea (adult) (pediatric) documented in this encounter Care Teams [place] Operator Relationship Specialty Start Date End Date Db Kurtz MD [address] [place] [address] PCP - General Family Medicine 07/11/16 05/07/21 documented as of this encounter
--- OUTSIDE RECORDS SUMMARY | 2022-09-28 11:53 | XMS_ITS | Encounter Summary ---
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 Not on file Not on le documented as of this encounter Plan of Treatment Upcoming Encounters Date Type Department Care Team (Late Contact Info) Description 04/26/2025 1:15 PM EDT Registration [facility] [address] [facility] [address] [place] [address] 04/26/2025 1:30 PM EDT Office Visit [facility] [address] [facility] [address] [place] [address] 04/26/2025 2:00 PM EDT Office Visit [facility] [address] [place] [address] Natalie Salazar, TRUCK DISPATCHER [address] [place] [address] documented as of this encounter Procedures Procedure Name Priority Date/Time Associated Diagnosis Comments XR CHEST PA AND LATERAL Routine 09/28/2022 11:01 AM EST Sarcoidosis documented in this encounter Results * XR Chest PA & Lateral (09/28/2022 11:01 AM EST) Anatomical Region Laterality Modality Body, Chest N/A Radiographic Bree ging 09/28/2022 3:34 PM EST Impressions 09/28/2022 3:34 PM EST Impression: No acute cardiopulmonary process. Electronically Signed: Ely Ledesma 09/28/2022 3:34 PM EST Workstation ID: [id number] Narrative 09/28/2022 3:34 PM EST XR CHEST PA AND LATERAL Date of Exam: 09/28/2022 11:01 AM EST Indication: Sarcoidosis. Comparison: Radiograph 12/26/2020, 01/21/2017 Findings: There are no airspace consolidations. No pleural fluid. No pneumothorax. The pulmonary vasculature appears within normal limits. The cardiac and mediastinal silhouette appear unremarkable. No acute osseous abnormality identified. Procedure Note Ely Ledesma MD - 09/28/2022 XR CHEST PA AND LATERAL Date of Exam: 09/28/2022 11:01 AM EST Indication: Sarcoidosis. Comparison: Radiograph 12/26/2020, 01/21/2017 Findings: There are no airspace consolidations. No pleural fluid. No pneumothorax.The pulmonary vasculature appears within normal limits. The cardiac andmediastinal silhouette appear unremarkable. No acute osseous abnormalityidentified. IMPRESSION: Impression: No acute cardiopulmonary process. Electronically Signed: Ely Ledesma 09/28/2022 3:34 PM EST Workstation ID: [id number] Natalie Salazar TRUCK DISPATCHER IMG DIAGNOSTIC IMAGING ORD ERABLES Final Result documented in this encounter Visit Diagnoses Not on filedocumented in this encounter Care Teams Hvac/R Instructor Relationship Specialty Start Date End Date Favian Ruiz MD PCP - General Emergency Medicine 05/23/21 documented as of this encounter
--- OUTSIDE RECORDS SUMMARY | 2025-03-23 13:00 | XMS_ITS | Encounter Summary ---
Author Organization [facility] Address [address] [place] [address] Care Team Providers Care Religious Education Teacher Name Role Phone Lizzeth Devlin APRN Primary Care Provider [phone] Reason for Referral * Consultation (Routine) - Authorized Specialty Diagnoses / Procedures Referred By Contact Referred To Contact Orthopaedic Surgery Diagnoses Weakness of hand Arsalan Diaz MD [address] [place] [address] Phone: tel: fax: [facility] [address] [place] [address] Phone: tel: fax: Referral ID Status Reason Start Date Expiration Date Visits Requested Visits Authorized [id number] Authorized Specialty Services Required 03/23/2025 09/22/2026 1 1 Scheduling Instructions Spine consult - Dr. Roy Reason for Visit * Reason Comments Follow-up * Consultation (Routine) - Closed Specialty Diagnoses / Procedures Referred By Stacy rowe Referred To Contact Hand Surgery Diagnoses Bilateral carpal tunnel syndrome Maryann Montgomery PA [facility] [address] [place] [address] Phone: tel: fax: [facility] [address] [place] [address] Phone: tel: fax: Referral ID Status Reason Start Date Expiration Date V isits Requested Visits Authorized [id number] Closed Specialty Services Required 02/11/2025 08/13/2026 1 1 Encounter Details Date Type Department Care Team (Late st Contact Info) Description 03/23/2025 1:00 PM EDT Office Visit Marcela Bowden [address] [place] [address] Arsalan Diaz MD [address] [place] [address] Weakness of hand (Primary Dx) Social History Tobacco Use Types Packs/Day Years Used Date Smoking Tobacco: Never Smokeless Tobacco: Never Tobacco Cessation:Counseling Given: Not Answered Alcohol Use Standard Drinks/Week Comments No 0 (1 standard drink = 0.6 oz pur e alcohol) PHQ-2 Answer Date Recorded Patient Health Questionnaire-2 Score 0 03/23/2025 Comments Unknown Sex and Gender Information Value Date Recorded Sex Assigned at Not on file Legal Sex Female 7:29 PM EDT Gender Identity Not on file Sexual Orientation Not on file documented as of this encounter Last Filed Vital Signs Vital Sign Reading Time Taken Comments Blood Pressure 125/72 03/23/2025 1:00 PM EDT Pulse 107 03/23/2025 1:00 PM EDT Temperature - - Respiratory Rate - - Oxygen Saturation 93% 03/23/2025 1:00 PM EDT Inhaled Oxygen Concentration - - Weight 172 kg (380 lb) 03/23/2025 1:00 PM EDT Height 160 cm (5' 3 ) 03/23/2025 1:00 PM EDT Body Mass Index 67.31 03/23/2025 1:00 PM EDT documented in this encounter Functional Status * Over the past 2 weeks, how often have you been bothered by any of the following problems? Question Answer Date of Assessment Author Little interest or pleasure in doing things Not at all 03/23/2025 12:52 PM EDT Celsa Toribio ret Feeling down, depressed, or hopeless Not at all 03/23/2025 12:52 PM EDT Celsa Toribio ret Patient Health Questionnaire-2 Score 0 03/23/2025 12:52 PM EDT Mishel Toribio documented as of this encounter Miscellaneous Notes * Progress Notes - Candace Waldrop MD - 03/23/2025 1:00 PM EDT Images from the original note were not included. [facility] Department of Surgery Division of Plastic and Reconstructive Surgery Plastic Surgery Clinic Note HISTORY OF PRESENT ILLNESS This is an initial consultation with this 65 y.o. year old female seen today at the request of Maryann Montgomery PA [facility] [address] [place] [address] for bilateral hand numbness and tingling . Génesis Corrales is a 65 y.o. right hand dominant female presenting for evaluation of bilateralnumbness and tingling in her hands. She reports that she has had numbness and tingling of the majority of her hands for many years, starting approximately 5 years ago when she fell and hurt her neck. Since then, her symptoms have been constant. Before this accident, she cannot remember if she hadany numbness or tingling. She states that she cannot do anything with her hands due to the numbness, and she often drops things. Her right hand is worse than her left. She has been evaluated by [facility] spine surgery for her neck problems, and she has undergone steroid injections in her neck and shoulder, but this makes her symptoms worse. She has tried bracing in the past, which has not helped. She underwent an EMG, which demonstrated right severe and left moderate carpal tunnel syndrome, and she was referred to hand surgery for further evaluation. She has a history of sarcoidosis and takes 10mg prednisone BID. She has been told she has arthritis, but not sure if this is osteoarthritis vs rheumatoid arthritis. 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 She takes aspirin daily but denies history of bleeding/clottingdisorders. She does not smoke. 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 PAST MEDICAL HISTORY Updated and documented in EMR, reviewed during this appointment. Past Medical History[1] PAST SURGICAL HISTORY Updated and documented in EMR, reviewed during this appointment Surgical History[2] CURRENT MEDICATIONS Current Medications[3] ALLERGIES Augmentin [amoxicillin-pot clavulanate], Cephalexin, Erythromycin, Hydrocodone- acetaminophen, Meloxicam, Nabumetone, Oxycodone-acetaminophen, Penicillins, and Voltaren [diclofenac] SOCIAL HISTORY Social History Socioeconomic History Marital status: Spouse name: Not on file Number of children: Not on file Years of education: Not on file Highest education level: Not on file Occupational History Not on file Tobacco Use Smoking status: Never Smokeless tobacco: Never Vaping Use Vaping status: Never Used Substance and Sexual Activity Alcohol use: No Drug use: No Comment: Drug use: No illicit drug use Sexual activity: Not on file Other Topics Concern Not on file Social History Narrative Not on file Social Drivers of Health Financial Resource Strain: Not on file Food Insecurity: Not on file Transportation Needs: Not on file Physical Activity: Not on file Stress: Not on file Social Connections: Not on file Intimate Partner Violence: Not on file Housing Stability: Not on file FAMILY HISTORY Family history is as noted on the history intake form which was reviewed and scanned into Dr. Tariff. Negative for bleeding disorders, clotting disorders or anesthesia issues. SYSTEMS REVIEW A complete 14 point review of systems was discussed with the patient at this time and was negative except as noted in the HPI. PHYSICAL EXAMINATION Vital Signs: Vitals: 03/23/25 1300 BP: 125/72 Pulse: 107 SpO2: 93% Weight: 172 kg (380 lb) Height: 1.6 m (5' 3 ) Body mass index is 67.31 kg/m??. General: The patient is in no acute distress. She is well groomed and cooperative with the exam. GEN: Healthy appearing, alert, no acute distress SKIN: Normal color, texture; no rashes or lesions HEENT: Normocephalic, no signs of trauma, anicteric, neck with normal ROM PULM: Normal respiratory effort on room air, no audible stridor or wheeze CV: Regular rate and rhythm, palpable radial pulses PSYCH: Pleasant and normal affect NEURO: Alert and oriented x 3. Cranial nerves grossly intact, speech intact LYMPH: No palpable lymphadenopathy EXTREMITY: Focused exam of the bilateral upper extremity reveals right wrist with decreased sensation to light touch in median nerve distribution. Negative Tinel's, Phalen's, or Durkan's at the wrist. APB 4/5, 1st dorsal interosseous 5/5. Full composite fist. Full range of motion at all fingers. Kapandji 10. No thenar atrophy. Negative Tinel's at Guyon's or elbow. Worsened paresthesias with compression of scalenes at neck or with neck tilt. Left wrist with decreased sensation to light touch. Negative Tinel's, Phalen's, Durkan's. Full composite fist and range of motion. APB and 1st dorsal interosseous 5/5. No thenar atrophy. Slight ulnar deviation of all fingers. RADIOGRAPHS/DATA None IMPRESSION/PLAN Génesis Corrales is a 65 y.o. 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 History and exam are consistent with carpal tunnel syndrome, but there is also some degree of cervical radiculopathy. We discussed the etiology and management withthe patient, including conservative management with bracing and activity modification; steroid injection; or open surgical release. We discussed, however, that with her cervical radiculopathy, release distally may not completely alleviate all her symptoms. We discussed that evaluation of her more proximal symptoms may help with diagnosing and treating her distal symptoms. After discussion, the patient would like to be evaluated by a spine surgeon first. We will provide that referral and she canfollow up with us as needed if she ultimately needs or decides to have carpal tunnel releas.e The patient indicates understanding of these instructions and agrees with the plan. Candace Waldrop MD Plastic & Reconstructive Surgery [1] Past Medical History: Diagnosis Date Personal history of diseases of the blood and blood-forming organs and certain disorders involving the immune mechanism History of sarcoidosis [2] Past Surgical History: Procedure Laterality Date ELBOW SURGERY N/A Elbow Surgery from [facility] HAND SURGERY N/A Hand Surgery from [facility] KNEE SURGERY N/A Knee Surgery from [facility] OTHER SURGICAL HISTORY N/A Biopsy Pleural from [facility] TONSILLECTOMY N/A Tonsillectomy from [facility] [3] Current Outpatient Medications: lnvnzytcavyai-tmjanahm-htnilwlzsy (Midol Complete) 500-60-15 MG tablet tablet, Take 2 tablets by mouth., Disp: , Rfl: albuterol 108 (90 Base) MCG/ACT inhaler, INHALE 2 PUFFS EVERY 6 HOURS NEEDED FOR WHEEZING OR SHORTNESS OF AIR, Disp: , Rfl: Albuterol Sulfate, sensor, 108 (90 Base) MCG/ACT aerosol powder , Inhale 2 puffs every 4 hours., Disp: , Rfl: aspirin 325 MG tablet, , Disp: , Rfl: Breztri Aerosphere 160-9-4.8 MCG/ACT aerosol, Inhale 2 puffs 2 times a day., Disp: , Rfl: brimonidine (AlphaGAN P) 0.15 % ophthalmic solution, 1 drop twice a day., Disp: , Rfl: budesonide-formoterol (Symbicort) 160-4.5 MCG/ACT inhaler, 2 puffs 2 times a day. RINSE MOUTH AFTERUSE, Disp: , Rfl: cefdinir (Omnicef) 300 MG capsule, Take 1 capsule by mouth 2 times a day., Disp: , Rfl: cetirizine (ZyrTEC ALLERGY) 10 MG tablet, Take 1 tablet by mouth., Disp: , Rfl: cetirizine (ZyrTEC) 10 MG tablet, Take 1 tablet by mouth 1 time each day., Disp: , Rfl: clindamycin (Cleocin) 300 MG capsule, TAKE 1 CAPSULE BY MOUTH THREE TIMES DAILY FOR 7 DAYS, Disp: ,Rfl: cyclobenzaprine (Flexeril) 10 MG tablet, as needed., Disp: , Rfl: dexlansoprazole (Dexilant) [address] capsule, Take 1 capsule by mouth 1 time each day., Disp: , Rfl: dexlansoprazole (Dexilant) [address] capsule, Take by mouth daily., Disp: , Rfl: diclofenac (Voltaren) 1 % topical gel, , Disp: , Rfl: doxycycline (Vibramycin) 100 MG capsule, Take by mouth daily., Disp: , Rfl: Dupilumab (DUPIXENT SC), , Disp: , Rfl: Dupixent 300 MG/2ML solution prefilled syringe injection, INJECT 2ML UNDER THE SKIN INTO THE APPROPRIATE AREA DIRECTED EVERY 14 DAYS, Disp: , Rfl: furosemide (Lasix) 40 MG tablet, daily., Disp: , Rfl: gabapentin (Neurontin) 300 MG capsule, Take 1 capsule by mouth 3 times a day., Disp: , Rfl: Ipratropium [place] HFA (ATROVENT HFA IN), Four times a day, Disp: , Rfl: ipratropium-albuterol (Combivent Respimat) 20-100 MCG/ACT inhaler, Inhale 1 puff 4 times a day., Disp: , Rfl: ipratropium-albuterol (Combivent Respimat) 20-100 MCG/ACT inhaler, Inhale 1 puff 4 times a day by inhalation route., Disp: , Rfl: ketorolac (Acular) 0.4 % ophthalmic solution, INSTILL 1 DROP TO MAXIMUS AFFECTED EYE 4 TIMES DAILY START AFTER SURGERY, Disp: , Rfl: ketorolac (Toradol) 60 MG/2ML solution, , Disp: , Rfl: levocetirizine (Xyzal) 5 MG tablet, Take 1 tablet by mouth daily., Disp: , Rfl: methylPREDNISolone (Medrol Dospak) 4 MG tablets, follow package directions, Disp: , Rfl: Mometasone Furoate (Asmanex HFA) 200 MCG/ACT aerosol, Inhale 2 puffs., Disp: , Rfl: moxifloxacin (Vigamox) 0.5 % ophthalmic solution, INSTILL 1 DROP IN AFFECTED EYE(S) FOUR TIMES DAILY, Disp: , Rfl: Multiple Vitamins-Iron tablet, , Disp: , Rfl: omeprazole (PriLOSEC) [address] capsule, daily., Disp: , Rfl: oxaprozin (Daypro) 600 MG tablet, Take 1 tablet by mouth daily., Disp: , Rfl: prednisoLONE acetate (Pred-Forte) 1 % ophthalmic suspension, INSTILL 1 DROP TO THE AFFECTED EYE 4 TIMES DAILY SART AFTER SURGERY, Disp: , Rfl: predniSONE (Deltasone) 20 MG tablet, Take 1 tablet by mouth daily., Disp: , Rfl: spironolactone (Aldactone) 25 MG tablet, Take 1 tablet by mouth daily., Disp: , Rfl: torsemide (Demadex) 20 MG tablet, Take 1 tablet by mouth daily as needed., Disp: , Rfl: Cosigned by Arsalan Diaz MD at 04/01/2025 8:24 AM EDT Associated attestation - Arsalan Diaz MD - 04/01/2025 8:24 AM EDT I saw and evaluated the patient with the resident/fellow. I discussed the case with the resident/fellow and agree with the findings and plan as documented. ATTENDING ATTESTATION: I, Arsalan Diaz MD, saw and evaluated Génesis Corrales, female, 65 y.o.. The patient was personally examined and her history and relative imaging studies were reviewed and personally interpreted. An independent physical exam was performed and the plan represents my personal medical decision-making. The treatment plan delineated in the note reflects my independently developed treatment plan. documented in this encounter Plan of Treatment Upcoming Encounters Date Type Department Care Team (Late st Contact Info) Description 05/12/2025 1:00 PM EDT Office Visit Medical Office Building [facility] [address] [facility], [address] [place] [address] Maura Adames, GONZALES [address] [facility] [address] [place] [address] Scheduled Referrals Name Type Priority Associated Diagnoses Order Schedule Ambulatory Referral to Orthopaedics Outpatient Referral Routine Weakness of hand Expected: 03/23/2025 (Approximate), Expires: 09/24/2026 documented as of this encounter Visit Diagnoses Diagnosis Weakness of hand- Primary Muscle weakness (generalized) documented in this encounter Additional Health Concerns Assessment Noted Time A Body Mass Index follow-up plan has been documented for the patient 04/01/2025 8:25 AM EDT documented as of this encounter Care Teams Religious Education Teacher Relationship Specialty Start Date End Date Lizzeth Devlin APRN [address] [place] [address] Dr [address] [place] [address] PCP - General 01/20/21 documented as of this encounter
[2025-04-09] VITALS (8 sets, daily range): BP systolic 125–166; BP diastolic 88–98; PULSE 80–110; RESP 16–22; TEMP 36.6; O2SAT 95–98; BMI 67.3
--- NOTE | 2025-04-09 14:16 | XR_ITS ---
FINAL REPORT CLINICAL HISTORY: Shortness of breath COMPARISON: 12/30/2023 FINDINGS: A portable view of the chest was obtained. Cardiac and mediastinal silhouettes are within normal limits. There are bibasilar opacities, atelectasis versus pneumonia. There is no significant pleural effusion. There is no evidence of pneumothorax.. IMPRESSION: Bibasilar opacities, atelectasis versus pneumonia. Reviewed, Interpreted and Dictated by Carlita Smith MD Transcribed by Imelda Hodges Authenticated and [facility]
--- NOTE | 2025-04-09 14:16 | ECG_ITS ---
APPROVED REPORT Exam: Resting ECG HR:97 bpm ECG Measurements Heart Rate 97 AXES [place] 151 P 62 QRSd 90 QRS -41 QT 350 T 61 QTc 404 Conclusion SINUS RHYTHM WITH OCCASIONAL SUPRAVENTRICULAR PREMATURE COMPLEXES LEFT AXIS DEVIATION [QRS AXIS < -30] LOW QRS VOLTAGE IN PRECORDIAL LEADS [QRS DEFLECTION < 1.0 mV IN CHEST LEADS] POSSIBLE ANTERIOR MYOCARDIAL INFARCTION , OF INDETERMINATE AGE [30 ms Q WAVE IN V3/V4, OR R < 0.2 mV IN V4] ABNORMAL ECG UNCONFIRMED REPORT Normal sinus rhythm. No ST elevation or depression. No T wave inversions. QTc normal at 494 Electronically signed by : LARRY LIMA, 04/12/2025 14:23:05
--- NOTE | 2025-04-09 14:17 | ED_ITS ---
<Statement entered by Blayne Rios MD - 04/10/25 21:06> I was consulted by the NEELIMA, and we discussed the complexity of the problems being addressed. I approved the treatment and management plan for this patient's care in the emergency department, thus performing a substantive portion of the medical decision making. Blayne Rios MD, MARLENE, FACEP Discharge Plan Disposition Patient Disposition: Home, Self-Care Prescriptions Prescriptions: No Action prednisone 20 mg tablet 20 mg PO DAILY Patient Comments: TAKE 1 TABLET BY MOUTH EVERY DAY spironolactone 25 mg tablet 25 mg PO DAILY Patient Comments: TAKE 1 TABLET BY MOUTH EVERY DAY albuterol sulfate 90 mcg/actuation HFA aerosol inhaler 2 puff INHALATION Q6HP PRN (Reason: SOA) Patient Comments: INHALE 2 PUFFS BY MOUTH EVERY 6 HOURS NEEDED Combivent Respimat 20-100 mcg/actuation mist 1 puff INHALATION QID Patient Comments: INHALE 1 PUFF BY MOUTH FOUR TIMES DAILY Breztri Aerosphere 160-9-4.8 mcg/actuation HFA aerosol inhaler 2 puff INHALATION BID Patient Comments: INHALE 2 PUFFS BY MOUTH TWICE DAILY nystatin 100,000 unit/mL suspension 4 ml PO QID 10 Days Qty: 160 0RF Rx Instructions: administer 1/2 of dose in each side of the mouth swish and spit Referrals Follow up/Referrals: Favian Ruiz MD [Primary Care Provider, Medical] - See instructions Marissa Best MD [Physician, Pulmonology] - See instructions Activity Restrictions/Add. Instructions Additional Instructions/Restrictions: Today you were evaluated in the emergency department. The CT scan of your lungs does not show any pulmonary embolism or aortic dissection. You do not have pneumonia. It appears that you have a viral upper respiratory infection. Please rest, increase your fluid intake. I have referred you to a development editor, please call them Saturday morning for a follow-up appointment. Clinical Impressions Clinical Impression: Obesity hypoventilation syndrome, Upper respiratory infection, viral Instructions Patient Instructions: Overweight in Adults Print Language Print Language: Japanese Discharge ED Provider: Luís Pisano HPI <Lakshmi Hennessy APRN - Last Filed: 04/10/25 09:22> General Chief Complaint: Shortness of Breath/Dyspnea Stated Complaint: previous lung issues Time Seen by Provider: 04/09/25 14:11 History of Present Illness HPI narrative: 65 yo female presents with SOA and productive cough Related Data Home Medications ?Medication ?Instructions ?Recorded ?Confirmed albuterol sulfate 90 mcg/actuation 2 puff inhalation Q 6HP PRN SOA 02/03/24 02/03/24 aerosol inhaler budesonide 160 mcg-glycopyr 9 2 puff inhalation BID 02/03/24 mcg-formot 4.8 mcg/actuation HFA inhaler (Breztri Aerosphere) ipratropium 20 mcg-albuterol 100 1 puff inhalation QID 02/03/24 02/03/24 mcg/actuation mist for inhalation (Combivent Respimat) prednisone 20 mg tablet 20 mg PO DAILY 02/03/2401/08 spironolactone 25 mg tablet 25 mg PO DAILY 02/03/24 Previous Rx's ?Medication ?Instructions ?Recorded nystatin 100,000 unit/mL oral 4 ml PO QID 10 days #160 mL 02/03/24 suspension Allergies Allergy/AdvReac Type Severity Reaction Status Date / Time ampicillin (AMPICILLIN) Allergy Severe Rash Verified 12/12/22 09:43 cephalexin (From KEFLEX) Allergy Mild Verified 12/12/22 09:43 diclofenac (DICLOFENAC) Allergy Mild Verified 12/12/22 09:43 morphine (MORPHINE) Allergy Mild Verified 12/12/22 09:43 amoxicillin (From AUGMENTIN) Allergy Unknown Verified 12/12/22 09:43 clavulanic acid (From Allergy Unknown Verified 12/12/22 09:43 AUGMENTIN) Penicillins (PENICILLINS) Allergy Unknown Verified 12/12/22 09:43 azithromycin Allergy Rash Verified 12/12/22 09:43 <Luís Pisano MD - Last Filed: 04/10/25 17:38> History of Present Illness HPI narrative: In summary, patient is a 65-year-old female PMHx COPD (3L NC prn), hypoglycemia, sarcoidosis, history of pneumonia who presents to the ED with complaints of shortness of breath. Patient states over the past 3-4 days she has been intermittently short of breath however today is worse. Patient states her shortness of breath has been persistent, she has been coughing, productive cough of the morning. Patient states she is exposed to her son who has been sick with a respiratory illness. Reports she is having intermittent back pain. [facility] <Lakshmi Hennessy APRN - Last Filed: 04/10/25 09:22> [facility] Disclaimer: The information contained in this section may have been updated after the patient was seen, as this information can be updated by other users. Medical History (Updated 04/09/25 @ 17:34 by Lakshmi Hennessy APRN) Sarcoidosis COPD (chronic obstructive pulmonary disease) Social History Smoking Status: Former smoker alcohol intake: never substance use type: denies use current occupational status: employed Travel in the last 8 weeks?: None household members: family housing: house Have you lived/traveled outside US in past 30 days?: No Contact w/someone who lives/traveled outside US past 30 days?: No Exposure to someone with infectious disease in past 14 days?: No Do you have a fever (greater than 100.4 F or 38 C)?: No Have you tested positive for COVID-19?: No Exposed to someone with COVID-19 in past 14 days?: No Do you have a sore throat?: No Do you have a cough?: No Do you have any weakness?: No Do you have any diarrhea?: No Are you experiencing any unusual bleeding?: No Do you have any muscle aches/pain?: No Do you have any abdominal pain?: No Are you experiencing loss of taste or smell?: No Other Medical History Have you received the Flu Vaccine for this season: No Have you received the Pneumonia Vaccine: No <Lakshmi Hennessy APRN - Last Filed: 04/10/25 09:22> ROS Obtained: Yes Systems reviewed as appropriate & no additional complaints except as documented Physical Exam <Lakshmi Hennessy APRN - Last Filed: 04/10/25 09:22> General General appearance: alert and in no apparent distress Head Head exam: atraumatic Eye Eye exam: Present PERRL Neck Neck exam: Present full ROM Respiratory Respiratory exam: Present normal lung sounds bilaterally Cardiovascular Cardiovascular exam: Present tachycardia Neurological Exam Neurological exam: Present alert and oriented X3 Skin Skin exam: Present warm and dry HEART Score <Lakshmi Hennessy APRN - Last Filed: 04/10/25 09:22> HEART Score HEART Score assessment performed?: Yes History (anamnesis): Slightly suspicious ECG: Non-specific disturbance Age: 45-65 years Risk factors: 3 or more risk factors Troponin: </= normal limit HEART Score: 4 <Luís Pisano MD - Last Filed: 04/10/25 17:38> HEART Score HEART Score: 4 Critical Care <Lakshmi Hennessy APRN - Last Filed: 04/10/25 09:22> Critical Care Time Critical Care Time: No Medical Decision Making <Lakshmi Hennessy APRN - Last Filed: 04/10/25 09:22> [place] Inquiry Pt receiving controlled substance: No Vital Signs Vital Signs: 04/09/25 14:12 04/09/25 15:53 04/09/25 16:00 Temperature 97.9 F Temperature Source Oral Pulse Rate 95 H 88 Pulse Rate [Right Brachial] 110 H Respiratory Rate 22 17 Blood Pressure 142/88 H 144/96 H Blood Pressure [Right Arm] 125/96 H Blood Pressure Mean [Right Arm] 105 Blood Pressure Source [Right Arm] Automatic Cuff Blood Pressure Position [Right Arm] Sitting 02 Sat by Pulse Oximetry 97 96 95 Oxygen Delivery Method Room Air Room Air Room Air 04/09/25 16:40 04/09/25 17:00 04/09/25 17:20 Temperature Temperature Source Pulse Rate 99 H 86 80 Pulse Rate [Right Brachial] Respiratory Rate 20 21 17 Blood Pressure 157/91 H 166/98 H 148/88 H Blood Pressure [Right Arm] Blood Pressure Mean [Right Arm] Blood Pressure Source [Right Arm] Blood Pressure Position [Right Arm] 02 Sat by Pulse Oximetry 96 98 Oxygen Delivery Method Room Air Room Air 04/09/25 17:40 04/09/25 18:02 Temperature 97.9 F Temperature Source Oral Pulse Rate 91 H 93 H Pulse Rate [Right Brachial] Respiratory Rate 16 18 Blood Pressure 142/88 H 142/88 H Blood Pressure [Right Arm] Blood Pressure Mean [Right Arm] Blood Pressure Source [Right Arm] Blood Pressure Position [Right Arm] 02 Sat by Pulse Oximetry 98 Oxygen Delivery Method Room Air Room Air Lab Data Labs: Lab Results 04/09/25 14:20: WBC 8.3, RBC 5.02, Hgb 12.1 L, Hct 40.0, MCV 79.7 L, MCH 24.1 L, MCHC 30.3 L, RDW 17.6 H, Plt Count 338, MPV 10.7 H, Neut % (Auto) 77.0, Lymph % (Auto) 14.6, [place] % (Auto) 6.8, Eos % (Auto) 0.5, Baso % (Auto) 0.7, Neut # (Auto) 6.4, Lymph # (Auto) 1.2, [place] # (Auto) 0.6, Eos # (Auto) 0.0, Baso # (Auto) 0.1, D-Dimer 1.00 H, Sodium 142, Potassium 4.3, Chloride 111 H, Carbon Dioxide 23, Anion Gap 12.3, BUN 12, Creatinine 0.70, Estimated Creat Clear 48, Estimated GFR 85, Est GFR ( Amer) 102, Glucose 125 H, Calcium 9.9, Total Bilirubin 0.3, AST 58 H, ALT 43, Alkaline Phosphatase 105, Troponin I < 0.01, NT-Pro-B Natriuret Pep 33.7, Total Protein 7.1, Albumin 4.2, Globulin 2.9, Albumin/Globulin Ratio 1.4, HCV Ab MUNIR w/Rflx PCR Qn Negative, HIV Ag/Ab Combo Qual Negative 04/09/25 14:33: VBG pH 7.44 H, VBG pCO2 32.7 L, VBG pO2 86.8 H, VBG HCO3 21.8 L, VBG Total CO2 22.8 L, VBG O2 Saturation 96.8 H, VBG Base Excess -2.4, VBG Lactic Acid 2.7 H 04/09/25 14:20 04/09/25 14:20 Response Orders (Tests/Meds): ED MEDICATIONS Discontinued Medications Generic Name Dose Route Start Last Admin Trade Name Freq PRN Reason Stop Dose Admin Sodium Chloride 1,000 mls @ 999 mls/hr 04/09/25 15:42 04/09/25 15:51 Sod Chlor 0.9% 1000ml Bag IV 04/09/25 16:42 999 mls/hr .Q1H1M ONE Administration Iopamidol 80 ml 04/09/25 16:07 04/09/25 16:10 Iopamidol-370 (76%);100ml Bottle IV 04/09/25 16:08 80 ml ONCE ONE Administration Sodium Chloride 10 ml 04/09/25 16:07 04/09/25 16:10 Sodium Chloride 0.9% 10ml Syr (Rad Only) IV 04/09/25 16:08 10 ml ONCE ONE Administration Sodium Chloride 50 ml 04/09/25 16:07 04/09/25 16:10 0.9 % Sodium Chloride 50 Ml Vial IV 04/09/25 16:08 50 ml ONCE ONE Administration ORDERS Category Date Time Status CT angio chest PE protocol Stat Cat Scan 04/09/25 15:35 Completed CXR --portable [XR chest portable] Stat Exams 04/09/25 14:16 Completed BNP [NT Pro Brain Natriuretic Pep.] Stat Lab 04/09/25 14:20 Completed CBC w/Auto Diff [Complete Blood Count Auto Diff] Stat Lab 04/09/25 14:20 Completed CMP [Comprehensive Metabolic Panel] Stat Lab 04/09/25 14:20 Completed D-Dimer Stat Lab 04/09/25 14:20 Completed HIV Combo Routine Lab 04/09/25 14:20 Completed Hepatitis C Ab Qual. W/ RFX Routine Lab 04/09/25 14:20 Completed Trop I [Troponin I] Stat Lab 04/09/25 14:20 Completed VBG [Venous Blood Gas] Stat RT 04/09/25 14:33 Completed MDM Narrative Medical Decision Narrative: In summary, patient is a 65-year-old female PMHx COPD (3L NC prn), hypoglycemia, sarcoidosis, history of pneumonia who presents to the ED with complaints of shortness of breath. Patient states over the past 3-4 days she has been intermittently short of breath however today is worse. Patient states her shortness of breath has been persistent, she has been coughing, productive cough of the morning. Patient states she is exposed to her son who has been sick with a respiratory illness. Reports she is having intermittent back pain. Upon initial presentation, patient is pleasant, A&O, speaking in full sentences, tachycardic and O2 96% RA. DD: PE, ACS, PNA, pneumothorax, COPD exacerbation, among others. CBC unremarkable for leukocytosis, stable H&H. CMP unremarkable for actionabale abnormalities, trop < 1. Dimer 1, will proceed with CT scan due to tachycardia, back pain, hx sarcodosis. CXR remarkable for atelectatsis. CTA unremarkable for PE, dissection or consolidation. Upon re-evaluation, patient remains hemodynamically stable, I discussed that she has a viral URI. Attending Dr. Rios had a discussion with patient about obesity hypoventilatory syndrome. Discused with pt to follow up with PCP and return to the ED for worsening of condition <Luís Pisano MD - Last Filed: 04/10/25 17:38> Vital Signs Vital Signs: 04/09/25 14:12 04/09/25 15:53 04/09/25 16:00 Temperature 97.9 F Temperature Source Oral Pulse Rate 95 H 88 Pulse Rate [Right Brachial] 110 H Respiratory Rate 22 17 Blood Pressure 142/88 H 144/96 H Blood Pressure [Right Arm] 125/96 H Blood Pressure Mean [Right Arm] 105 Blood Pressure Source [Right Arm] Automatic Cuff Blood Pressure Position [Right Arm] Sitting 02 Sat by Pulse Oximetry 97 96 95 Oxygen Delivery Method Room Air Room Air Room Air 04/09/25 16:40 04/09/25 17:00 04/09/25 17:20 Temperature Temperature Source Pulse Rate 99 H 86 80 Pulse Rate [Right Brachial] Respiratory Rate 20 21 17 Blood Pressure 157/91 H 166/98 H 148/88 H Blood Pressure [Right Arm] Blood Pressure Mean [Right Arm] Blood Pressure Source [Right Arm] Blood Pressure Position [Right Arm] 02 Sat by Pulse Oximetry 96 98 Oxygen Delivery Method Room Air Room Air 04/09/25 17:40 04/09/25 18:02 Temperature 97.9 F Temperature Source Oral Pulse Rate 91 H 93 H Pulse Rate [Right Brachial] Respiratory Rate 16 18 Blood Pressure 142/88 H 142/88 H Blood Pressure [Right Arm] Blood Pressure Mean [Right Arm] Blood Pressure Source [Right Arm] Blood Pressure Position [Right Arm] 02 Sat by Pulse Oximetry 98 Oxygen Delivery Method Room Air Room Air Lab Data Labs: Lab Results 04/09/25 14:20: WBC 8.3, RBC 5.02, Hgb 12.1 L, Hct 40.0, MCV 79.7 L, MCH 24.1 L, MCHC 30.3 L, RDW 17.6 H, Plt Count 338, MPV 10.7 H, Neut % (Auto) 77.0, Lymph % (Auto) 14.6, [place] % (Auto) 6.8, Eos % (Auto) 0.5, Baso % (Auto) 0.7, Neut # (Auto) 6.4, Lymph # (Auto) 1.2, [place] # (Auto) 0.6, Eos # (Auto) 0.0, Baso # (Auto) 0.1, D-Dimer 1.00 H, Sodium 142, Potassium 4.3, Chloride 111 H, Carbon Dioxide 23, Anion Gap 12.3, BUN 12, Creatinine 0.70, Estimated Creat Clear 48, Estimated GFR 85, Est GFR ( Amer) 102, Glucose 125 H, Calcium 9.9, Total Bilirubin 0.3, AST 58 H, ALT 43, Alkaline Phosphatase 105, Troponin I < 0.01, NT-Pro-B Natriuret Pep 33.7, Total Protein 7.1, Albumin 4.2, Globulin 2.9, Albumin/Globulin Ratio 1.4, HCV Ab MUNIR w/Rflx PCR Qn Negative, HIV Ag/Ab Combo Qual Negative 04/09/25 14:33: VBG pH 7.44 H, VBG pCO2 32.7 L, VBG pO2 86.8 H, VBG HCO3 21.8 L, VBG Total CO2 22.8 L, VBG O2 Saturation 96.8 H, VBG Base Excess -2.4, VBG Lactic Acid 2.7 H Response Orders (Tests/Meds): ED MEDICATIONS Discontinued Medications Generic Name Dose Route Start Last Admin Trade Name Freq PRN Reason Stop Dose Admin Sodium Chloride 1,000 mls @ 999 mls/hr 04/09/25 15:42 04/09/25 15:51 Sod Chlor 0.9% 1000ml Bag IV 04/09/25 16:42 999 mls/hr .Q1H1M ONE Administration Iopamidol 80 ml 04/09/25 16:07 04/09/25 16:10 Iopamidol-370 (76%);100ml Bottle IV 04/09/25 16:08 80 ml ONCE ONE Administration Sodium Chloride 10 ml 04/09/25 16:07 04/09/25 16:10 Sodium Chloride 0.9% 10ml Syr (Rad Only) IV 04/09/25 16:08 10 ml ONCE ONE Administration Sodium Chloride 50 ml 04/09/25 16:07 04/09/25 16:10 0.9 % Sodium Chloride 50 Ml Vial IV 04/09/25 16:08 50 ml ONCE ONE Administration ORDERS Category Date Time Status CT angio chest PE protocol Stat Cat Scan 04/09/25 15:35 Completed CXR --portable [XR chest portable] Stat Exams 04/09/25 14:16 Completed BNP [NT Pro Brain Natriuretic Pep.] Stat Lab 04/09/25 14:20 Completed CBC w/Auto Diff [Complete Blood Count Auto Diff] Stat Lab 04/09/25 14:20 Completed CMP [Comprehensive Metabolic Panel] Stat Lab 04/09/25 14:20 Completed D-Dimer Stat Lab 04/09/25 14:20 Completed HIV Combo Routine Lab 04/09/25 14:20 Completed Hepatitis C Ab Qual. W/ RFX Routine Lab 04/09/25 14:20 Completed Trop I [Troponin I] Stat Lab 04/09/25 14:20 Completed VBG [Venous Blood Gas] Stat RT 04/09/25 14:33 Completed MDM Narrative Medical Decision Narrative: In summary, patient is a 65-year-old female PMHx COPD (3L NC prn), hypoglycemia, sarcoidosis, history of pneumonia who presents to the ED with complaints of shortness of breath. Patient states over the past 3-4 days she has been intermittently short of breath however today is worse. Patient states her shortness of breath has been persistent, she has been coughing, productive cough of the morning. Patient states she is exposed to her son who has been sick with a respiratory illness. Reports she is having intermittent back pain. Upon initial presentation, patient is pleasant, A&O, speaking in full sentences, tachycardic and O2 96% RA. DD: PE, ACS, PNA, pneumothorax, COPD exacerbation, among others. CBC unremarkable for leukocytosis, stable H&H. CMP unremarkable for actionabale abnormalities, trop < 1. Dimer 1, will proceed with CT scan due to tachycardia, back pain, hx sarcodosis. CXR remarkable for atelectatsis. CTA unremarkable for PE, dissection or consolidation. Upon re-evaluation, patient remains hemodynamically stable, I discussed that she has a viral URI. Attending Dr. Rios had a discussion with patient about obesity hypoventilatory syndrome. Discused with pt to follow up with PCP and return to the ED for worsening of condition I was consulted by the NEELIMA, and we discussed the complexity of the problems being addressed. I approve the treatment and management plan for this patient's care in the emergency department, thus performing a substantive portion of the medical decision making. Luís Pisano MD
--- NOTE | 2025-04-09 14:22 | PC.NURSE ---
СЕРГЕЙ Constantino at bedside at this time.
--- OUTSIDE RECORDS SUMMARY | 2025-04-09 14:25 | XMS_ITS | Encounter Summary ---
Author Organization [facility] ([place], [place], [place], [place]) Address [address] [place] [address] Care Team Providers Care Manager Behavior Name Role Phone Unavailable Primary Care Provider Unavailabl e Encounter Details Date Type Department Care Team (Late st Contact Info) Description 07/05/2021 Transcribed Document [facility] [place] [facility] [address] [place] [address] ProviderPauline MD [address], [place] [id number] Social History Tobacco Use Types Packs/Day Years Used Date Smoking Tobacco: Never Assessed Comments Unknown Sex and Gender Information Value Date Recorded Sex Assigned at Not on file Legal Sex Female 5:42 PM CDT Gender Identity Not on file Sexual Orientation Not on file documented as of this encounter Miscellaneous Notes * Cerner Conversion Note - Pauline ProviderMD - 07/05/2021 12:02 PM CDT Spiritual Care Assessment Entered On: 07/05/2021 12:48 EDT Performed On: 07/05/2021 12:30 EDT by JUAN HERNANDEZ Chaplain General Information Initial Visit : Yes Referred by : Nurse Referral Reason Comment : pre-surgery prayer Ministry Provided to : Patient, Family/Significant other Spiritual/Emotional Acuity : Low Spiritual Framework : Well integrated, provides significant strength/resource Active in a Buddhism/Camryn Group : Yes Caodaism Preference : [employer] ([employer]) JUAN HERNANDEZ Chaplain - 07/05/2021 12:45 EDT Spiritual Assessment Patient's Community/Relationship : Strength in patient's life Supportive/Healthy Relationships : Yes Patient's Sense of Meaning : Strength in patient's life Patient's Concept of God/the Sacred : Strength in patient's life Feels Connected to God/the Sacred : Yes God/the Spiritual Gives Strength : Yes Feels abandoned by God/the Sacred : No Patient's Sense of Hope : Strength in patient's life Sense of Gratitude : Yes Spiritual Assessment Comment/Summary Points : Pre-surgery visit to patient, her daughter was with her. Patient has a strong camryn and trusts that God will watch over her and help her to heal. Prayed with patient for her surgery and recovery. Spirital Assessment Comment/Summary Report : SPIRITUAL ASSESSMENT COMMENT/SUMMARY No qualifying data available. JUAN HERNANDEZ Chaplain - 07/05/2021 12:45 EDT Interventions Emotional Support : Empathic/Engaged listening, Established trust, Family/Significant other supported, Hope strengths identified, Meaning strengths identified, Relationship strengths identified Spiritual and Caodaism : God/the Spiritual connection/strengths identified, Prayer shared JUAN HERNANDEZ Chaplain - 07/05/2021 12:45 EDT documented in this encounter Plan of Treatment Not on file documented as of this encounter Visit Diagnoses Not on filedocumented in this encounter
--- OUTSIDE RECORDS SUMMARY | 2025-04-09 14:25 | XMS_ITS | Encounter Summary ---
Author Organization [email or web address] ([place], [place], [place], [place]) Address [address] [place] [address] Care Team Providers Care Band Director Name Role Phone Unavailable Primary Care Provider Unavailabl e Encounter Details Date Type Department Care Team (Late st Contact Info) Description 07/05/2021 Transcribed Document [facility] [place] [facility] [address] [place] [address] ProviderPauline MD [address] [place] [address] Social History Tobacco Use Types Packs/Day Years Used Date Smoking Tobacco: Never Assessed Comments Unknown Sex and Gender Information Value Date Recorded Sex Assigned at Not on file Legal Sex Female 5:42 PM CDT Gender Identity Not on file Sexual Orientation Not on file documented as of this encounter Miscellaneous Notes * Cerner Conversion Note - Pauline ProviderMD - 07/05/2021 2:53 PM CDT [place] [id number] GÉNESIS SCOTT :1960 Visit Time:07/05/2021 What to do next Your Diagnosis Surgical procedure, unspecified as the cause of abnormal reaction of the patient, or of later complication, without mention of misadventure at the time of the procedure, Surgical procedure, unspecified as the cause of abnormal reaction of the patient, or of later complication, without mention of misadventure at the time of the procedure Instructions From Your Care Team Partial weight bearing with walker to left lower extremity Oxycodone, Tramadol and Zofran sent to your [facility] pharmacy by Dr. Maldonado May remove dressing tomorrow, shower and apply bandaids Take Aspirin 81 mg twice a day for 6 weeks May apply ice to incision- ice on for 20 mins, ice off for 40 mins Follow-Up Appointments Follow Up with WILMER MALDONADO JR, JR, MD-ORT When Within 2 weeks Comments Call for follow up appointment- Dr. Maldonado wants to see you back in 10-14 days Where: [address] [address] [place] [address]- Medications What How Much When Instructions Next Dose acetaminophen (Tylenol Extra Strength 500 mg oral tablet) 1 Tablet(s) Oral Three Times A Day as needed for as needed for pain albuterol (Ventolin HFA 90 mcg/ inh inhalation aerosol) 2 Puff(s) Inhalation Every 6 Hours albuterol-ipratropium (Combivent Respimat CFC free 100 mcg-20 mcg/ inh inhalation aerosol) 2 Puffs Inhalation Every Day albuterol-ipratropium (DuoNeb 0.5 mg-2.5 mg/ 3 mL inhalation solution) 3 Milliliter(s) Inhalation Four Times A Day codeine-promethazine (Promethazine with Codeine 6.25 mg-10 mg/ 5 mL oral syrup) 5 Milliliter(s) Oral Every 4 Hours dexlansoprazole (Dexilant) 60 Milligram(s) Oral Every Day levocetirizine (Xyzal 5 mg oral tablet) 1 Tablet(s) Oral Every Evening multivitamin 1 Tablet(s) Oral Every Day oxaprozin (oxaprozin 600 mg oral tablet) 1 Tablet(s) Oral Two Times A Day predniSONE (predniSONE 10 mg oral tablet) 1 Tablet(s) Oral Two Times A Day predniSONE (predniSONE 20 mg oral tablet) See instructions 3 tablets q am x 3 days 2 tablets q am x 3 days 1 tablet q am x 3 days 1/ 2 tablet q am x 3 days spironolactone (spironolactone 25 mg oral tablet) 1 Tablet(s) Oral Every Day Take your medications faithfully. Do NOT skip medication. Do NOT stop taking medications without the direction of a physician. Carry a list of your medications with you at all times, and take this medication list with you to your first follow up visit. Report any side effects. Avoid herbal remedies unless discussed with your physician. As part of your treatment plan, your physician may have prescribed a limited course of a controlled substance. This medication may be given to help people with moderate or severe pain or for other medical conditions, but there are risks involved with treatment. Common side effects may include nausea, constipation, drowsiness, sweating, itching, dry mouth, and rash. More serious side effects may include cognitive and motor impairment, like problems with thinking, concentrating, alertness, and movement (e.g. slowed reflexes), and driving and operating heavy machinery can be dangerous. It is important for you to talk to your physician if you have these side effects or questions. These controlled substances can produce physical dependence and be habit-forming if taken for an extended period of time, which means that the body has gotten used to them and may experience withdrawal symptoms if they are abruptly stopped. Withdrawal symptoms can include runny nose, sweating, goose bumps, diarrhea, abdominal cramping, rapid heartbeat, difficulty sleeping, and nervousness. Please dispose of unused and medications per pharmacy guidance. Education Materials Displaced Fibular Ankle Fracture Treated With ORIF, Care After This sheet gives you information about how to care for yourself after your procedure. Your health care provider may also give you more specific instructions. If you have problems or questions, contact your health care provider. What can I expect after the procedure? After your procedure, it is common to have: ??? Swelling, bruising, and pain at your ankle and foot. ??? Some clear or light yellow drainage or a small amount of blood from your incision. ??? Stiffness when you move your ankle, once you are allowed to move it. ??? You will also not be able to put any weight on your injured leg. Follow these instructions at home: If you have a splint or boot: ??? Wear the splint or boot as told by your health care provider. Remove it only as told by your health care provider. ??? Loosen the splint or boot if your toes tingle, become numb, or turn cold and blue. ??? Keep the splint or boot clean. ??? If the splint or boot is not waterproof: ? Do not let it get wet. ? Cover it with a watertight covering when you take a bath or a shower. If you have a cast: ??? Do not stick anything inside the cast to scratch your skin. Doing that increases your risk of infection. ??? Check the skin around the cast every day. Tell your health care provider about any concerns. ??? You may put lotion on dry skin around the edges of the cast. Do not put lotion on the skin underneath the cast. ??? Keep the cast clean. ??? If the cast is not waterproof: ? Do not let it get wet. ? Cover it with a watertight covering when you take a bath or a shower. Bathing ??? Do not take baths, swim, or use a hot tub until your health care provider approves. Ask your health care provider if you can take showers. You may only be allowed to take sponge baths for bathing. ??? If your cast, splint, or boot is not waterproof, cover it with a watertight covering when you take a bath or a shower. ??? Keep the bandage (dressing) dry until your health care provider says it can be removed. Incision care ??? Follow instructions from your health care provider about how to take care of your incision. Make sure you: ? Wash your hands with soap and water before you change your bandage (dressing). If soap and water are not available, use hand mobile plant operators. ? Change your dressing as told by your health care provider. Some clear or pale yellow drainage or small amounts of blood on the dressing is normal in the first few days after surgery. ? Leave stitches (sutures), skin glue, or adhesive strips in place. These skin closures may need to stay in place for 2 weeks or longer. If adhesive strip edges start to loosen and curl up, you may trim the loose edges. Do not remove adhesive strips completely unless your health care provider tells you to do that. ??? Check your incision area every day for signs of infection. Check for: ? Redness, swelling, or pain. ? Fluid or blood. If you have a cast, the blood or fluid may come through as a stain on the cast. ? Warmth. ? Pus or a bad smell. Managing pain, stiffness, and swelling ??? If directed, put ice on the injured area. ? If you have a removable splint or boot, remove it as told by your health care provider. ? Put ice in a plastic bag. ? Place a towel between your skin and the bag or between the cast and the bag. ? Leave the ice on for 20 minutes, 2???3 times a day. ??? Move your toes often to avoid stiffness and to lessen swelling. ??? Raise (elevate) the injured area above the level of your heart when you are sitting or lying down. Driving ??? Do not drive or use heavy machinery while taking prescription pain medicine. ??? Do not drive for 24 hours if you were given a medicine to help you relax (sedative). ??? If you have a cast, splint, or boot, ask your health care provider when it is safe for you to drive. General instructions ??? Do not use the injured limb to support your body weight until your health care provider says that you can. Use crutches or a walker as told by your health care provider. ??? Rest your injured ankle as told by your health care provider. ??? To prevent or treat constipation while you are taking prescription pain medicine, your health care provider may recommend that you: ? Drink enough fluid to keep your urine clear or pale yellow. ? Take skzj-yjm-hdtkiah or prescription medicines. ? Eat foods that are high in fiber, such as fresh fruits and vegetables, whole grains, and beans. ? Limit foods that are high in fat and processed sugars, such as fried and sweet foods. ??? Take ftfd-ixu-lzioshd and prescription medicines only as told by your health care provider. ??? Do not use any products that contain nicotine or tobacco, such as cigarettes and e-cigarettes. These can delay bone healing. If you need help quitting, ask your health care provider. ??? Do not put pressure on any part of the cast or splint until it has fully hardened. This may take several hours. ??? Keep all follow-up visits as told by your health care provider. This is important. Contact a health care provider if: ??? You have redness, swelling, or pain around your incision. ??? You have fluid or blood coming from your incision. ??? Your incision feels warm to the touch. ??? You have pus or a bad smell coming from your incision. ??? You have a fever. ??? You have nausea or vomiting that does not go away. Get help right away if: ??? You have chest pain or shortness of breath. ??? You have numbness in your foot that is getting worse. ??? You have a new pain in your calf that comes on quickly and feels like tightness or cramping. Summary ??? After this procedure, it is common to have a small amount of clear drainage from your incision. There will also be bruising and swelling. ??? Contact a health care provider if you notice swelling, bruising, and fluid from your incision. ??? Raising the affected leg, taking pain medicine, and putting ice on the area will help lessen the pain and swelling. ??? Ask your health care provider about the activities that are safe for you. This information is not intended to replace advice given to you by your health care provider. Make sure you discuss any questions you have with your health care provider. Document Revised: 10/16/2019 Document Reviewed: 09/11/2017 [email or web address] Patient Education ?? 2020 [employer] Peripheral Nerve Block Peripheral nerve block is an injection of numbing medicine (regional anesthetic) near a nerve. The regional anesthetic numbs everything below the injection site. This provides pain relief during and after a medical procedure. Generally, you will be awake while a peripheral nerve block is performed. You also may receive medicines to help you feel relaxed and comfortable during the procedure (sedatives). When you have a peripheral nerve block, you are not exposed to the risks associated with medicine that makes you fall asleep (general anesthetic). You may also: ??? Need less pain medicine after your procedure. ??? Have a lower risk of blood clots. ??? Recover sooner. Tell a health care provider about: ??? Any allergies you have. ??? All medicines you are taking, including vitamins, herbs, eye drops, creams, and wkuc-mjs-rzicopm medicines. ??? Any problems you or family members have had with anesthetic medicines. ??? Any blood disorders you have. ??? Any surgeries you have. ??? Any medical conditions you have. ??? Whether you are or may be . What are the risks? Generally, this is a safe procedure. However, problems may occur, including: ??? Infection. ??? Bleeding. ??? Allergic reactions to medicines. ??? Damage to other structures or organs, such as temporary or permanent nerve damage. What happens before the procedure? Staying hydrated Follow instructions from your health care provider about hydration, which may include: ??? Up to 2 hours before the procedure ??? you may continue to drink clear liquids, such as water, clear fruit juice, black coffee, and plain tea. Eating and drinking restrictions Follow instructions from your health care provider about eating and drinking, which may include: ??? 8 hours before the procedure ??? stop eating heavy meals or foods such as meat, fried foods, or fatty foods. ??? 6 hours before the procedure ??? stop eating light meals or foods, such as toast or cereal. ??? 6 hours before the procedure ??? stop drinking milk or drinks that contain milk. ??? 2 hours before the procedure ??? stop drinking clear liquids. General instructions ??? Ask your health care provider about: ? Changing or stopping your regular medicines. This is especially important if you are taking diabetes medicines or blood thinners. ? Taking medicines such as aspirin and ibuprofen. These medicines can thin your blood. Do not take these medicines unless your health care provider tells you to take them. ? Taking ezch-dil-exczvrv medicines, vitamins, herbs, and supplements. ??? Plan to have someone take you home from the hospital or clinic. ??? Plan to have a responsible adult care for you for at least 24 hours after you leave the hospital or clinic. This is important. What happens during the procedure? An IV will be inserted into one of your veins. ??? You may be given a sedative. ??? Your nerve may be located by using: ? Sound waves that create images of the area (ultrasound). ? A device that activates the nerve and causes your muscles to twitch (nerve stimulator). ??? The skin around your injection site will be cleaned with a germ-killing solution. ??? Medicine to numb your injection site (local anesthetic) may be injected into the tissue above your nerve. ??? Regional anesthetic will be injected into the area near your nerve. ? The medicine will be injected around the nerve, not into it. ? You should not feel any pain. The area of your peripheral nerve block will begin to feel warm and numb. ??? A thin, flexible tube (catheter) may be inserted near your nerve. The catheter may remain there to continue delivering the regional anesthetic during and after your medical procedure. ??? When the area of your peripheral nerve block is completely numb, the medical procedure can be performed. ??? Your injection site may be covered with a bandage (dressing) when your medical procedure is done. The procedure may vary among health care providers and hospitals. What can I expect after the procedure? If you do not have a catheter, you may continue to be numb for up to 36 hours. The length of this time depends on how much anesthetic was injected. ??? If you have a catheter, you will continue to be numb until the catheter is removed. ??? To reduce your risk of injury: ? Do not expose the numb area to heat or cold. ? Do not stand up or try to walk without help if you have a nerve block in one or both legs. Get help and limit your activity as told by your health care provider. ??? As the medicine wears off, you will have a gradual return of feeling in the area that is supplied by the nerve. ??? Your blood pressure, heart rate, breathing rate, and blood oxygen level will be monitored until the medicines you were given have worn off. Follow these instructions at home: Activity ??? Do not drive or use heavy machinery until your health care provider approves. ??? Do not lift anything that is heavier than 10 lb (4.5 kg), or the limit that you are told, until your health care provider says that it is safe. Injection site care ??? If you have a dressing, remove it 24 hours after your procedure, or as told by your health care provider. ??? Check your injection site every day for signs of infection. Check for: ? Redness, swelling, or pain. ? Warmth. ? Fluid or blood. ? Pus or a bad smell. General instructions ??? Take hrdo-zpq-qecicvl and prescription medicines only as told by your health care provider. ??? Do not take showers or baths, swim, or use a hot tub until your health care provider approves. ??? Keep all follow-up visits as told by your health care provider. This is important. Contact a health care provider if: ??? You continue to have numbness, weakness, or tingling after your medicine has worn off. ??? You have a fever. ??? You have redness, swelling, or pain around your injection site. Get help right away if: ??? You have trouble breathing. Summary ??? Peripheral nerve block is an injection of numbing medicine (regional anesthetic) near a nerve. This provides pain relief during and after a medical procedure. ??? Feeling will gradually return to the area that is supplied by the nerve. ??? A catheter may be inserted to continue to provide medicine for up to several days. This information is not intended to replace advice given to you by your health care provider. Make sure you discuss any questions you have with your health care provider. Document Revised: 10/12/2019 Document Reviewed: 06/18/2018 [employer] Patient Education ?? 2020 [employer]. General Anesthesia, Adult, Care After This sheet gives you information about how to care for yourself after your procedure. Your health care provider may also give you more specific instructions. If you have problems or questions, contact your health care provider. What can I expect after the procedure? After the procedure, the following side effects are common: ??? Pain or discomfort at the IV site. ??? Nausea. ??? Vomiting. ??? Sore throat. ??? Trouble concentrating. ??? Feeling cold or chills. ??? Weak or tired. ??? Sleepiness and fatigue. ??? Soreness and body aches. These side effects can affect parts of the body that were not involved in surgery. Follow these instructions at home: For at least 24 hours after the procedure: ??? Have a responsible adult stay with you. It is important to have someone help care for you until you are awake and alert. ??? Rest as needed. ??? Do not: ? Participate in activities in which you could fall or become injured. ? Drive. ? Use heavy machinery. ? Drink alcohol. ? Take sleeping pills or medicines that cause drowsiness. ? Make important decisions or sign legal documents. ? Take care of children on your own. Eating and drinking ??? Follow any instructions from your health care provider about eating or drinking restrictions. ??? When you feel hungry, start by eating small amounts of foods that are soft and easy to digest (bland), such as toast. Gradually return to your regular diet. ??? Drink enough fluid to keep your urine pale yellow. ??? If you vomit, rehydrate by drinking water, juice, or clear broth. General instructions ??? If you have sleep apnea, surgery and certain medicines can increase your risk for breathing problems. Follow instructions from your health care provider about wearing your sleep device: ? Anytime you are sleeping, including during daytime naps. ? While taking prescription pain medicines, sleeping medicines, or medicines that make you drowsy. ??? Return to your normal activities as told by your health care provider. Ask your health care provider what activities are safe for you. ??? Take rewe-pno-mteshnb and prescription medicines only as told by your health care provider. ??? If you smoke, do not smoke without supervision. ??? Keep all follow-up visits as told by your health care provider. This is important. Contact a health care provider if: ??? You have nausea or vomiting that does not get better with medicine. ??? You cannot eat or drink without vomiting. ??? You have pain that does not get better with medicine. ??? You are unable to pass urine. ??? You develop a skin rash. ??? You have a fever. ??? You have redness around your IV site that gets worse. Get help right away if: ??? You have difficulty breathing. ??? You have chest pain. ??? You have blood in your urine or stool, or you vomit blood. Summary ??? After the procedure, it is common to have a sore throat or nausea. It is also common to feel tired. ??? Have a responsible adult stay with you for the first 24 hours after general anesthesia. It is important to have someone help care for you until you are awake and alert. ??? When you feel hungry, start by eating small amounts of foods that are soft and easy to digest (bland), such as toast. Gradually return to your regular diet. ??? Drink enough fluid to keep your urine pale yellow. ??? Return to your normal activities as told by your health care provider. Ask your health care provider what activities are safe for you. This information is not intended to replace advice given to you by your health care provider. Make sure you discuss any questions you have with your health care provider. Document Revised: 08/29/2018 Document Reviewed: 04/11/2018 [employer] Patient Education ?? 2020 [employer] aspirin (oral) ( pir in) Arthritis Pain, Aspi-Cor, Aspir-Low, Joshua Plus, Durlaza, Ecotrin, Miniprin, [place]alore What is the most important information I should know about aspirin? Aspirin can cause Alejandro's syndrome, a serious and sometimes fatal condition in children. What is aspirin? Aspirin is a salicylate (ty-WBF-zt-ate) that is used to treat pain, and reduce fever or inflammation. Aspirin is sometimes used to treat or prevent heart attacks, strokes, and chest pain (angina). Aspirin should be used for these conditions only under the supervision of a doctor. Aspirin may also be used for purposes not listed in this medication guide. What should I discuss with my healthcare provider before taking aspirin? Using aspirin in a child or teenager with flu symptoms or chickenpox can cause a serious or fatal condition called Alejandro's syndrome. You should not use aspirin if you are allergic to it, or if you have: ?? a recent history of stomach or intestinal bleeding; ?? a bleeding disorder such as hemophilia; or ?? if you have ever had an asthma attack or severe allergic reaction after taking aspirin or an NSAID (non-steroidal anti-inflammatory drug). Tell your doctor if you have ever had: ?? asthma or seasonal allergies; ?? stomach ulcers; ?? liver disease; ?? kidney disease; ?? a bleeding or blood clotting disorder; ?? gout; or ?? heart disease, high blood pressure, or congestive heart failure. Taking aspirin during late may cause bleeding in the mother or the baby during delivery. Tell your doctor if you are or plan to become . You should not breastfeed while using this medicine. How should I take aspirin? Use exactly as directed on the label, or as prescribed by your doctor. Always follow directions on the medicine label about giving aspirin to a child. Take with food if aspirin upsets your stomach. You must chew the chewable tablet before you swallow it. Do not crush, chew, break, or open an enteric-coated or delayed/extended-release pill. Swallow it whole. Tell your doctor if you have a planned surgery. Store at room temperature away from moisture and heat. Do not use aspirin if you smell a strong vinegar odor in the aspirin bottle. The medicine may no longer be effective. What happens if I miss a dose? Aspirin is used when needed. If you are on a dosing schedule, skip any missed dose. Do not use two doses at one time. What happens if I overdose? Seek emergency medical attention or call the Poison Help line at . Overdose may cause stomach pain, vomiting, diarrhea, vision or hearing problems, fast or slow breathing, or confusion. What should I avoid while taking aspirin? Avoid alcohol. Heavy drinking can increase your risk of stomach bleeding. Avoid taking ibuprofen if you take aspirin to prevent stroke or heart attack. Ibuprofen can make aspirin less effective in protecting your heart and blood vessels. Ask your doctor how far apart your doses should be. Ask a doctor or pharmacist before using other medicines for pain, fever, swelling, or cold/flu symptoms. They may contain ingredients similar to aspirin (such as magnesium salicylate, ibuprofen, ketoprofen, or naproxen). What are the possible side effects of aspirin? Get emergency medical help if you have signs of an allergic reaction: hives; difficult breathing; swelling of your face, lips, tongue, or throat. Stop using aspirin and call your doctor at once if you have: ?? ringing in your ears, confusion, hallucinations, rapid breathing, seizure (convulsions); ?? severe nausea, vomiting, or stomach pain; ?? bloody or tarry stools, coughing up blood or vomit that looks like coffee grounds; ?? fever lasting longer than 3 days; or ?? swelling, or pain lasting longer than 10 days. Common side effects may include: ?? upset stomach, heartburn; ?? drowsiness; or ?? mild headache. This is not a complete list of side effects and others may occur. Call your doctor for medical advice about side effects. You may report side effects to FDA at 9-086-LXE-9969. What other drugs will affect aspirin? Ask your doctor before using aspirin if you take an antidepressant. Taking certain antidepressants with aspirin may cause you to bruise or bleed easily. Ask a doctor or pharmacist before using aspirin with any other medications, especially: ?? a blood thinner (warfarin, Coumadin, Jantoven), or other medication used to prevent blood clots; or ?? other salicylates such as Nuprin Backache Caplet, Kaopectate, KneeRelief, Pamprin Cramp Formula, Pepto-Bismol, Tricosal, Trilisate, and others. This list is not complete. Other drugs may affect aspirin, including prescription and ggvg-ovk-fhczeep medicines, vitamins, and herbal products. Not all possible drug interactions are listed here. Where can I get more information? Your pharmacist can provide more information about aspirin. Remember, keep this and all other medicines out of the reach of children, never share your medicines with others, and use this medication only for the indication prescribed. Every effort has been made to ensure that the information provided by [employer]. ('[employer]') is accurate, up-to-date, and complete, but no guarantee is made to that effect. Drug information contained herein may be time sensitive. [employer] information has been compiled for use by healthcare practitioners and consumers in the [place] and therefore [employer] does not warrant that uses outside of the [place] are appropriate, unless specifically indicated otherwise. [employer] drug information does not endorse drugs, diagnose patients or recommend therapy. [employer] drug information is an informational resource designed to assist licensed healthcare practitioners in caring for their patients and/or to serve consumers viewing this service as a supplement to, and not a substitute for, the expertise, skill, knowledge and judgment of healthcare practitioners. The absence of a warning for a given drug or drug combination in no way should be construed to indicate that the drug or drug combination is safe, effective or appropriate for any given patient. [employer] does not assume any responsibility for any aspect of healthcare administered with the aid of information [employer] provides. The information contained herein is not intended to cover all possible uses, directions, precautions, warnings, drug interactions, allergic reactions, or adverse effects. If you have questions about the drugs you are taking, check with your doctor, nurse or pharmacist. Copyright 5085-9198 [employer]. Version: 16.03. Revision Date: 03/06/2021. Emergency Awareness and Preventative Care STROKE is an EMERGENCY Every Minute Counts Act FAST and Check for these signs: FACE Does the face look uneven? ARM Does one arm drift down? SPEECH Does their speech sound strange? TIME Call at any sign of stroke Stroke Risk Factors Atrial Fibrillation (irregular heartbeat) Diabetes Family history of stroke Heart Disease Heavy alcohol use High Blood Pressure High Cholesterol Physical inactivity and obesity Smoking Cigarette Smoking The facts are clear, cigarette smoking will shorten your life. Smoking can cause many illnesses along the way. As a healthcare provider, we recommend that you stop smoking. Assistance with quitting is available by contacting 4-100-FDIVNOW. This is a free resource providing counseling, support, and referral. Or you may contact your personal physician. [place] Suicide Prevention Lifeline: The National Suicide Prevention Lifeline is a national network of local crisis centers that provides free and confidential emotional support to people in suicidal crisis or emotional distress 24 hours a day, 7 days a week. Don't Wait! Stop a Heart Attack Before it Starts What is a heart attack? A heart attack is damage or to a part of the heart from severely decreased or lack of blood flow to the heart. Over time, arteries can become narrow from the buildup of fat and cholesterol, which is called plaque. The plaque can rupture causing a blood clot to form. When the blood clot forms, the artery can become severely narrowed or completely blocked, causing a heart attack. Heart attack is the leading cause of in the [place]. 85% of muscle damage occurs within the first 2 hours. Delay in the recognition of heart attack symptoms increases the chances of . Know the early symptoms of a heart attack: Nausea Feeling of fullness in chest Jaw Pain Pain that travels down one or both arms Fatigue/being tired Anxiety Back Pain Chest pressure, squeezing, or discomfort Shortness of breath Sweating, or a cold sweat Feeling of impending doom There are unusual signs of a heart attack, too! Women, the elderly, and diabetics may present with atypical symptoms: Fainting/dizziness Weakness Confusion Risk Factors for a Heart Attack Some heart disease risk factors, such as age and family history, cannot be changed. Others, like smoking and lack of exercise, can be changed. Smoking High Cholesterol High Blood Pressure Family History Obesity Age Gender (Males are at higher risk) Lack of Exercise Diabetes Diet Stress Excessive Alcohol Intake If you or someone you know is experiencing the signs and symptoms of a heart attack, DON???T DELAY. Call immediately and seek help. If someone collapses, perform CPR! Do not attempt to drive if you are having symptoms of heart attack. Hands-Only CPR Why Hands-Only CPR? Hands-Only CPR has been shown to be as effective as conventional CPR for cardiac arrests that occur outside of a hospital. Survival depends on immediately receiving CPR from someone nearby. How do you perform Hands-Only CPR? There are two easy steps: Call 9-1-1 if you see a teen or adult collapse Push hard and fast in the center of the chest at a beat of 100 beats per minute. Save a life! 4 WAYS TO GET AHEAD OF SEPSIS SEPSIS is a MEDICAL EMERGENCY. Time matters! Infections put you and your family at risk for a life-threatening condition called sepsis. Sepsis is the body's extreme response to an infection. It is life-threatening, and without timely treatment, sepsis can rapidly lead to tissue damage, organ failure, and . Sepsis happens when an infection you already have-in your skin, lungs, urinary tract or somewhere else-triggers a chain reaction throughout your body. 1 PREVENT INFECTIONS Take good care of chronic conditions. Talk to your doctor about getting the recommended vaccines. 2 PRACTICE GOOD HYGIENE Wash your hands frequently. Keep cuts or open sores clean and covered until they are healed. 3 KNOW THE SYMPTOMS Confusion or disorientation Shortness of breath High heart rate Fever, shivering, or feeling very cold Extreme pain or discomfort Clammy or sweaty skin 4 ACT FAST Get medical care IMMEDIATELY if you suspect sepsis or if you have an infection that is not getting better or is getting worse. To learn more about sepsis and how to prevent infections, visit www.cdc.gov/sepsis. Test Results Laboratory or Other Results This Visit (last charted value for your 07/05/2021 visit) Diagnostic Radiology 07/05/2021 1:56 PM SULEMA Cuellar in OR: SULEMA Cuellar in OR Patient Name:GÉNESIS SCOTT I have received this information and was given the opportunity to ask questions. Patient/Lace Winder Name: Patient/Lace Winder Signature: Relationship to Patient: Clinician/Hospital Lace Winder Signature: Date: Electronically signed by Interface, [facility] Conversion Dragger Out Gustavo at 12/23/2022 11:21 PM CDT documented in this encounter Plan of Treatment Not on file documented as of this encounter Visit Diagnoses Not on filedocumented in this encounter
--- OUTSIDE RECORDS SUMMARY | 2025-04-09 14:25 | XMS_ITS | Clinical Summary ---
Author Organization [employer] ([place], [place], [place], [place]) Address [address] [place] [address] Care Team Providers Care Vice President Of Software Development Name Role Phone Unavailable Primary Care Provider Unavailabl e Social History Tobacco Use Types Packs/Day Years Used Date Smoking Tobacco: Never Assessed Comments Unknown Sex and Gender Information Value Date Recorded Sex Assigned at Not on file Legal Sex Female 5:42 PM CDT Gender Identity Not on file Sexual Orientation Not on file Plan of Treatment Not on file
--- OUTSIDE RECORDS SUMMARY | 2025-04-09 14:25 | XMS_ITS | Clinical Summary ---
Author Organization [facility] Address [address] [place] [address] Care Team Providers Care Corporate Communications Manager Name Role Phone Favian Ruiz MD Primary Care Provider Allergies Active Allergy Reactions Criticality Noted Date Comments Ampicillin Hives 06/28/2016 Amoxicillin-Pot Clavulanate Hives 06/28/2016 Cephalexin Rash Low 08/29/2015 Clavulanic Acid Unknown - Low Severity 12/13/19 Duloxetine Hcl 06/28/2016 Diclofenac Unknown - High Severity Low 12/12/2022 Erythromycin 06/28/2016 Fluticasone Other (See Comments) 05/01/2024 nosebleeds Morphine Shortness Of Breath High 12/12/2022 Penicillins Hives 05/23/2021 Oxycodone-Acetaminophen Shortness Of Breath,Itching High 04/19/2017 Diclofenac Sodium 06/28/2016 Medications oxaprozin (DAYPRO) 600 MG tablet Take by mouth 2 (Two) Times a Day. 4 Active dexlansoprazole (DEXILANT) 60 MG capsule Take by mouth Daily. 5 Active spironolactone (ALDACTONE) 25 MG tablet Take 1 tablet by mouth As Needed. 3 Active Multiple Vitamin (MULTI VITAMIN PO) Take by mouth Daily. Active aspirin 325 MG EC tablet Take 1 tablet by mouth Daily. 1 Active levocetirizine (Xyzal) 5 MG tablet Take 1 tablet by mouth Every Evening. 30 tablet 11 1 Active albuterol (PROVENTIL) (2.5 MG/3ML) 0.083% nebulizer solutionIndicati ons:Moderate asthma, unspecified whether complicated, unspecified whether persistent Take 2.5 mg by nebulization 4 (Four) Times a Day As Needed for Wheezing. 120 each 6 1 Active predniSONE (DELTASONE) 20 MG tablet Take 1 tablet by mouth Daily. Active ipratropium-albu terol (DUO-NEB) 0.5-2.5 mg/3 ml nebulizerIndicat ions:Moderate persistent asthma without complication Take 3 mL by nebulization Every 4 (Four) Hours As Needed for Wheezing. 360 mL 2 4 Active torsemide (DEMADEX) 20 MG tablet Take 1 tablet by mouth Daily As Needed. Active Ipratropium [place] HFA (ATROVENT HFA IN) Four times a day Act moustapha Budeson-Glycopyr rol-Formoterol (Breztri Aerosphere) 160-9-4.8 MCG/ACT aerosol inhalerIndicatio ns:Sarcoidosis Inhale 2 puffs 2 (Two) Times a Day. 10.7 g 11 4 Active Mometasone Furoate (Asmanex HFA) 200 MCG/ACT aerosolIndicatio ns:Sarcoidosis Inhale 2 puffs 2 (Two) Times a Day As Needed (for cough, wheezing, etc not controlled by breztri). 1 each 11 4 Active ipratropium-albu terol (Combivent Respimat) 20-100 MCG/ACT inhalerIndicatio ns:Moderate persistent asthma without complication Inhale 1 puff 4 (Four) Times a Day. 4 g 11 4 Active gabapentin (NEURONTIN) 300 MG capsule Take 1 capsule by mouth 3 times a day. 4 Active cefdinir (OMNICEF) 300 MG capsuleIndicatio ns:Moderate persistent asthma with acute exacerbation Take 1 capsule by mouth 2 (Two) Times a Day. 20 capsule 5 Active albuterol sulfate HFA 108 (90 Base) MCG/ACT inhalerIndicatio ns:Sarcoidosis Inhale 2 puffs Every 6 (Six) Hours As Needed for Wheezing or Shortness of Air. 18 g 3 5 Active Dupilumab (Dupixent) 300 MG/2ML solution prefilled syringeIndicatio ns:Moderate persistent asthma without complication Inject 2 mL under the skin into the appropriate area as directed Every 14 (Fourteen) Days. 4 each 11 5 Active Active Problems Problem Noted Date Diagnosed Date Allergic rhinitis 07/19/2016 Asthma 07/19/2016 Overview (07/19/2016): Normal pulmonary function tests in 2006. GERD (gastroesophageal reflux disease) 6 Osteoarthritis 07/19/2016 Prediabetes 07/19/2016 Gait abnormality 07/11/2016 Obstructive sleep apnea syndrome 07/11/2016 Overview (08/01/2016): CPAP therapy 16 cm water each bedtime. Polymyalgia rheumatica 07/11/2016 Overview (07/11/2016): Description: A. On low-dose steroid therapy per rheumatology. Chronic fatigue 07/11/2016 Sarcoidosis 06/28/2016 Overview (07/19/2016): Status post treatment in 1993, without history of exacerbation. HTN (hypertension) 06/28/2016 Morbid obesity 06/28/2016 Immunizations Immunization Administration Dates Next Due Tdap 07/11/2023 Family History Medical History Relation Name Comments Alcohol abuse Father Peter Diabetes Father Peter Hypertension Father Peter Other Maternal Aunt Renal disease Cancer Mother Gardenia Depression Mother Gardenia Hypertension Mother Gardenia Pancreatic cancer Mother Gardenia Diabetes Other 1 Aunt Depression Other 2 sibling Diabetes Other 2 sibling Hypertension Other 2 sibling Bleeding Disorder Other 3 Family History Hypertension Other 3 Family History Relation Name Status Comments Father Peter Maternal Aunt Mother Gardenia (Age 73) Other 1 Aunt Alive Other 2 sibling Alive Other 3 Family History Alive Social History Tobacco Use Types Packs/Day Years [...] 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, 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 Not on file Not on fi le Last Filed Vital Signs Vital Sign Reading Time Taken Comments Blood Pressure 110/62 10/26/2024 1:26 PM EST Pulse 115 10/26/2024 1:26 PM EST Temperature 37.2 C (98.9 F) 10/26/2024 1:26 PM EST Respiratory Rate 24 12/31/2023 1:33 PM EDT Oxygen Saturation 95% 10/26/2024 1:2 6 PM EST Room air at rest Inhaled Oxygen Concentration - - Weight 173 kg (382 lb) 10/26/2024 1:26 PM EST Height 165.1 cm (5' 5 ) 10/26/2024 1:26 PM EST Body Mass Index 63.57 10/26/2024 1:26 PM EST Plan of Treatment Upcoming Encounters Date Type Department Care Team (Late st Contact Info) Description 04/26/2025 1:[address] [facility] [address] [phone] 04/26/2025 1:30 PM EDT Office Visit [facility] [address] [place] [phone] 04/26/2025 2:00 PM EDT Office Visit [facility] [address] [facility] [address] [place] [address] Natalie Salazar, ROLL THREADER OPERATOR [address] [place] [address] Health Maintenance Due Date Last Done Comments Annual Gynecologic Pelvic and Breast Exam 1962 Pneumococcal Vaccine 50+ (1 of 2 - PCV) 1981 PAP SMEAR 1983 MAMMOGRAM 2002 COLOGUARD 2007 COLON CANCER SCREENING 5 YEAR SIGMOIDOSCOPY 2007 COLONOSCOPY 2007 [address] CANCER SCREENING 2007 CT COLONOGRAPHY 2007 FECAL OCCULT BLOOD TEST 2007 FIT Testing (1 year) 2007 ZOSTER VACCINE (1 of 2) 2012 ANNUAL WELLNESS VISIT 09/14/2020 09/14/2019 COVID-19 Vaccine (2 - season) 05/10/202406/2022 INFLUENZA VACCINE 06/09/2025 TDAP/TD VACCINES (2 - Td or Tdap) 07/11/2033 023 HEPATITIS C SCREENING Completed 07/11/2016 Procedures Procedure Name Priority Date/Time Associated Diagnosis Comments HEPATITIS C ANTIBODY Routine 07/11/2016 11:45 AM EDT Chronic fatigue from Last 3 Months or Most Recently Relevant to Health Maintenance Results * Hepatitis C Antibody (07/11/2016 11:45 AM EDT) Hep C Virus Ab 0.2 0.0 - 0.9 s/co ratio [facility] Comment: Negative: < 0.8 Indeterminate: 0.8 - 0.9 Positive: > 0.9 The CDC recommends that a positive HCV antibody result be followed up with a HCV Nucleic Acid Amplification test (670678). Blood 07/11/2016 11:4 5 AM EDT 07/11/2016 Narrative [facility]) - 07/12/2016 3:09 AM EDT Performed at: [address] [id number] Zipper Sewing Machine Operator: Marek Driscoll PhD, Phone: [phone] us Db Kurtz MD LAB BLOOD ORDERABLES Final Resu lt [facility] ([facility]BULATORY) [address] [place] [address], [facility] [address] [place] [id number], from Last 3 Months or Most Recently Relevant to Health Maintenance Insurance MEDICAID [place] MED[employer]VANTAGE [employer] Care Teams Corporate Communications Manager Relationship Specialty Start Date End Date Favian Ruiz MD PCP - General Emergency Medicine 05/23/21
--- OUTSIDE RECORDS SUMMARY | 2025-04-09 14:25 | XMS_ITS | Referral Summary ---
Author Organization [employer] ([place], [place], [place], [place]) Address [address] [place] [address] Care Team Providers Care Superintendent Drilling Name Role Phone Unavailable Primary Care Provider [...]
--- OUTSIDE RECORDS SUMMARY | 2025-04-09 14:25 | XMS_ITS | Encounter Summary ---
Author Organization [employer] ([place], [place], [place], [place]) Address [address] [place] [address] Care Team Providers Care Insurance Marketing Specialist Name Role Phone Unavailable Primary Care Provider Unavailabl e Encounter Details Date Type Department Care Team (Late st Contact Info) Description 07/05/2021 Transcribed Document [facility] [place] [facility] [address] [place] [address] ProviderPauline MD [address] [place] [address] Social History Tobacco Use Types Packs/Day Years Used Date Smoking Tobacco: Never Assessed Comments Unknown Sex and Gender Information Value Date Recorded Sex Assigned at Not on file Legal Sex Female 5:42 PM CDT Gender Identity Not on file Sexual Orientation Not on file documented as of this encounter Miscellaneous Notes * [employer] Conversion Note - Pauline Patel MD - 07/05/2021 12:59 PM CDT Peripheral Nerve Block Entered On: 07/05/2021 13:04 EDT Performed On: 07/05/2021 12:59 EDT by Mary Smith RN Peripheral Nerve Block Peripheral Nerve Block Start Date/Time : 07/05/2021 13:01 EDT Verbally Confirm Pt, Site, and Procedure : Yes Time Out Pause Time : 07/05/2021 12:59 EDT Site Preparation : Chlorhexidine (Hibiclens) Peripheral Nerve Block : Adductor Canal Laterality : Left Peripheral Nerve Block Performed by : MONICA NICOLAS MD Medication Delivery Method : Single Shot Peripheral Nerve Block Assisted by : MELY APPLE RN Ultra sound used during insertion : Yes Nerve Block Activity, Patient Tolerance : Good Peripheral Nerve Block End Date/Time : 07/05/2021 13:04 EDT Mary Smith RN - 07/05/2021 12:59 EDT documented in this encounter Plan of Treatment Not on file documented as of this encounter Visit Diagnoses Not on filedocumented in this encounter
--- OUTSIDE RECORDS SUMMARY | 2025-04-09 14:25 | XMS_ITS | Encounter Summary ---
Author Organization [employer] ([place], [place], [place], [place]) Address [address] [place] [address] Care Team Providers Care Manager Client Support Name Role Phone Unavailable Primary Care Provider Unavailabl e Encounter Details Date Type Department Care Team (Late st Contact Info) Description 07/05/2021 Transcribed Document [facility] [place] [address] [place] [address] ProviderPauline MD [address] [place] [address] Social History Tobacco Use Types Packs/Day Years Used Date Smoking Tobacco: Never Assessed Comments Unknown Sex and Gender Information Value Date Recorded Sex Assigned at Not on file Legal Sex Female 5:42 PM CDT Gender Identity Not on file Sexual Orientation Not on file documented as of this encounter Miscellaneous Notes * [employer]ner Conversion Note - Pauline Patel MD - 07/05/2021 2:53 PM CDT Patient Education Materials Follows: Displaced Fibular Ankle Fracture Treated With ORIF, [...] and water are not available, use hand saddle stitch operator. ? Change your dressing as told by [...] Leave the ice on for 20 minutes, 2?3 times a day. ??? Move your toes [...] urine clear or pale yellow. ? Take dkuq-ehl-yyxlfnm or prescription medicines. ? Eat foods that are high in fiber, such as fresh fruits and vegetables, whole grains, and beans. ? Limit foods that are high in fat and processed sugars, such as fried and sweet foods. ??? Take nzwb-rut-tdmaaqe and prescription medicines only as told by [...] provider. Document Revised: 10/16/2019 Document Reviewed: 09/11/2017 [employer] Patient Education ? 2020 [employer] Pharmacology Peripheral Nerve Block Peripheral nerve block is [...] including vitamins, herbs, eye drops, creams, and umxd-gjj-csudmqr medicines. ??? Any problems you or family [...] Up to 2 hours before the procedure ? you may continue to drink clear liquids, such as water, clear fruit juice, black coffee, and plain tea. Eating and drinking restrictions Follow instructions from your health care provider about eating and drinking, which may include: ??? 8 hours before the procedure ? stop eating heavy meals or foods such as meat, fried foods, or fatty foods. ??? 6 hours before the procedure ? stop eating light meals or foods, such as toast or cereal. ??? 6 hours before the procedure ? stop drinking milk or drinks that contain milk. ??? 2 hours before the procedure ? stop drinking clear liquids. General instructions ??? [...] tells you to take them. ? Taking btum-uxq-bytfmho medicines, vitamins, herbs, and supplements. ??? Plan [...] a bad smell. General instructions ??? Take ylsa-eig-ejuhgmr and prescription medicines only as told by [...] provider. Document Revised: 10/12/2019 Document Reviewed: 06/18/2018 [employer] Patient Education ? 2020 [employer] General Anesthesia, Adult, Care After This sheet [...] activities are safe for you. ??? Take borb-dgc-kxyegbe and prescription medicines only as told by [...] provider. Document Revised: 08/29/2018 Document Reviewed: 04/11/2018 [employer] Patient Education ? 2020 [employer]. documented in this encounter Plan of Treatment Not on file documented as of this encounter Visit Diagnoses Not on filedocumented in this encounter
--- OUTSIDE RECORDS SUMMARY | 2025-04-09 14:25 | XMS_ITS | Encounter Summary ---
Author Organization [employer] ([place], [place], [place], [place]) Address [address] [place] [address] Care Team Providers Care Tab Machine Operator Name Role Phone Unavailable Primary Care Provider Unavailabl e Encounter Details Date Type Department Care Team (Late st Contact Info) Description 07/05/2021 Transcribed Document [facility] [place] Family Medicine [address] [place] [address] ProviderPauline MD [address] [place] [address] Social History Tobacco Use Types Packs/Day Years Used Date Smoking Tobacco: Never Assessed Comments Unknown Sex and Gender Information Value Date Recorded Sex Assigned at Not on file Legal Sex Female 5:42 PM CDT Gender Identity Not on file Sexual Orientation Not on file documented as of this encounter Miscellaneous Notes * Cerner Conversion Note - Paulnie Patel MD - 07/05/2021 1:31 PM CDT [facility] OR PreOp Summary Primary Physician: WILMER MALDONADO JR, JR, MD-ORT Finalized Date/Time: 07/05/21 14:41:06 Pt. Name: GÉNESIS SCOTT MARGY Odonnell/Sex: 1960 Female Med Rec #: [id number] Physician: WILMER MALDONADO JR, JR, MD-BELEMT Financial #: [id number] Pt. Type: O Room/Bed: Admit/Disch: 07/05/21 11:08:00 - Institution: [facility] [place] PreOp Case Times Entry 1 In Preop 07/05/21 11:15:00 Ready for Holding n/a Room Patient Ready for 07/05/21 12:15:00 Surgery Patient Out of Preop 07/05/21 13:10:00 Patient Out of n/a Holding Room Last Modified By: Mary Smith RN 07/05/21 14:41:04 [facility] PreOp Case Times Audit 07/05/21 14:41:04 Engine Hostler: [id number] Modifier: CHERELLE <+> 1 Patient Out of Preop Finalized By: Mary Smith RN Document Signatures Signed By: Mary Smith RN 07/05/21 14:41 documented in this encounter Plan of Treatment Not on file documented as of this encounter Visit Diagnoses Not on filedocumented in this encounter
--- OUTSIDE RECORDS SUMMARY | 2025-04-09 14:25 | XMS_ITS | Encounter Summary ---
Author Organization [employer] ([place], [place], [place], [place]) Address [address] [place] [address] Care Team Providers Care Dental Service Chief Name Role Phone Unavailable Primary Care Provider Unavailabl e Encounter Details Date Type Department Care Team (Late st Contact Info) Description 07/05/2021 Transcribed Document [facility] [place] [address] [place] [address] ProviderPauline MD [address] [place] [address] Social History Tobacco Use Types Packs/Day Years Used Date Smoking Tobacco: Never Assessed Comments Unknown Sex and Gender Information Value Date Recorded Sex Assigned at Not on file Legal Sex Female 5:42 PM CDT Gender Identity Not on file Sexual Orientation Not on file documented as of this encounter Miscellaneous Notes * Cerner Conversion Note - Pauline Patel MD - 07/05/2021 1:31 PM CDT [facility] OR IntraOp Summary Primary Physician: WILMER MALDONADO JR, JR, MD-ORT Finalized Date/Time: 07/05/21 14:00:27 Pt. Name: GÉNESIS SCOTT MARGY Odonnell/Sex: 1960 Female Med Rec #: [id number] Physician: WILMER MALDONADO JR, JR, MD-ORT Financial #: [id number] Pt. Type: O Room/Bed: Admit/Disch: 07/05/21 11:08:00 - Institution: [facility] [place] IntraOp Case Attendance Entry 1 Entry 2 Entry 3 Case Attendee WILMER MALDONADO JR, JR, Jolie Dacosta, RN Felipe Combs, COVER MAT MACHINE OPERATOR/SUPPLY MANAGER ELAINEORPhillip Role Performed Surgeon/Proceduralist, Media Supervisor, Seed Trucker, First First Time In 07/05/21 13:11:00 07/05/21 13:11:00 07/05/21 13:11:00 Time Out 07/05/21 13:53:00 07/05/21 13:53:00 07/05/21 13:53:00 Procedure Ankle Open Reduction Ankle Open Reduction Ankle Open Reduction Internal Fixation Internal Fixation Internal Fixation Other Attendee Superficial Wound Closed By: Last Modified By: Jolie Dacosta RN Wellnitz, Sara, Jolie Antunez RN 07/05/21 13:59:31 07/05/21 13:59:31 07/05/21 13:59:31 Entry 4 Entry 5 Entry 6 Case Attendee Addie Small, Arsalan Pino, OTHER, ATTENDEE TEXTILE SCIENCE TECHNICIAN Role Performed Scrub, First Senior System Operator Vendor Time In 07/05/21 13:11:00 07/05/21 13:30:00 07/05/21 13:34:00 Time Out 07/05/21 13:53:00 07/05/21 13:53:00 07/05/21 13:53:00 Procedure Ankle Open Reduction Ankle Open Reduction Ankle Open Reduction Internal Fixation Internal Fixation Internal Fixation Other Attendee Kiko MELENDEZ Superficial Wound Closed By: Last Modified By: Jolie Dacosta RN Wellnitz, Sara, Jolie Antunez RN 07/05/21 13:59:31 07/05/21 13:59:31 07/05/21 13:59:31 Entry 7 Entry 8 Case Attendee DA LOMELI, NATASHA HERNÁNDEZ, WIND FIELD SERVICE MANAGER, CLEANER LABORATORY EQUIPMENT-ANS Role Performed CLEANER LABORATORY EQUIPMENT/Nurse Compressed Gas Tester CLEANER LABORATORY EQUIPMENT/Nurse Compressed Gas Tester Time In 07/05/21 13:11:00 07/05/21 13:40:00 Time Out 07/05/21 13:40:00 07/05/21 13:53:00 Procedure Ankle Open Reduction Ankle Open Reduction Internal Fixation Internal Fixation Other Attendee Superficial Wound Closed By: Last Modified By: Jolie Dacosta, Jolie Antunez, СЕРГЕЙ 07/05/21 13:59:31 07/05/21 13:59:56 [facility] IntraOp Case Attendance Audit 07/05/21 13:59:56 Processor Helper: ISRAEL Modifier: ISRAEL Vazquez <+> Role Performed 8 <*> Procedure Ankle Open Reduction Internal Fixation 07/05/21 13:59:31 Processor Helper: WELLNISA Modifier: WELLNISA 1 <+> Time Out 1 <*> Procedure Ankle Open Reduction Internal Fixation 2 <+> Time Out 2 <*> Procedure Ankle Open Reduction Internal Fixation 3 <+> Time Out 3 <*> Procedure Ankle Open Reduction Internal Fixation 4 <+> Time Out 4 <*> Procedure Ankle Open Reduction Internal Fixation 5 <+> Time Out 5 <*> Procedure Ankle Open Reduction Internal Fixation 6 <+> Time Out 6 <*> Procedure Ankle Open Reduction Internal Fixation 7 <*> Procedure Ankle Open Reduction Internal Fixation 8 <*> Procedure Ankle Open Reduction Internal Fixation 07/05/21 13:58:50 Processor Helper: WELLNISA Modifier: WELLNISA <+> 8 Case Attendee <+> 8 Time In <+> 8 Time Out <+> 8 Procedure 07/05/21 13:41:58 Processor Helper: WELLNISA Modifier: WELLNISA 1 <*> Case Attendee WILMER MALDONADO JR, JR, MD-ORT 1 <*> Role Performed Surgeon/Proceduralist, First 1 <*> Time In 07/05/21 13:11:00 1 <*> Procedure Ankle Open Reduction Internal Fixation 2 <*> Case Attendee Jolie Dacosta, RN 2 <*> Role Performed Media Supervisor, First 2 <*> Time In 07/05/21 13:11:00 2 <*> Procedure Ankle Open Reduction Internal Fixation Entry 3 was deleted. Higher numbered entries shifted one position to fill the gap. <-> 3 Case Attendee EL STILES [address] <-> 3 Role Performed Scrub, First <-> 3 Time In 07/05/21 13:11:00 <-> 3 Procedure Ankle Open Reduction Internal Fixation 4 <*> Case Attendee Felipe Combs, COVER MAT MACHINE OPERATOR/SUPPLY MANAGER 4 <*> Role Performed Senior Sql Server Dba, First 4 <*> Time In 07/05/21 13:11:00 4 <*> Procedure Ankle Open Reduction Internal Fixation 5 <*> Case Attendee Addie Small, COVER MAT MACHINE OPERATOR 5 <*> Role Performed Scrub, First 5 <*> Time In 07/05/21 13:11:00 5 <*> Procedure Ankle Open Reduction Internal Fixation 6 <*> Case Attendee rAsalan Freire, TEXTILE SCIENCE TECHNICIAN 6 <*> Role Performed Senior System Operator 6 <*> Time In 07/05/21 13:30:00 6 <*> Procedure Ankle Open Reduction Internal Fixation 6 <+> Other Attendee 7 <*> Case Attendee OTHER, ATTENDEE 7 <*> Role Performed Vendor 7 <*> Time In 07/05/21 13:34:00 7 <+> Time Out 7 <*> Procedure Ankle Open Reduction Internal Fixation 7 <-> Other Attendee Kiko NORA 07/05/21 13:41:29 Processor Helper: ISRAEL Modifier: ADRIANA <+> 8 Case Attendee <+> 8 Role Performed <+> 8 Time In <+> 8 Time Out <+> 8 Procedure 07/05/21 13:34:45 Processor Helper: ISRAEL Modifier: ISRAEL 3 <*> Procedure Ankle Open Reduction Internal Fixation <+> 6 Case Attendee <+> 6 Role Performed <+> 6 Time In <+> 6 Procedure <+> 7 Case Attendee <+> 7 Role Performed <+> 7 Time In <+> 7 Procedure <+> 7 Other Attendee 07/05/21 13:33:20 Processor Helper: ISRAEL Modifier: WELLLAQUITAA 1 <+> Time In 1 <*> Procedure Ankle Open Reduction Internal Fixation 2 <+> Time In 2 <*> Procedure Ankle Open Reduction Internal Fixation 3 <+> Time In 3 <*> Procedure Ankle Open Reduction Internal Fixation 4 <+> Time In 4 <*> Procedure Ankle Open Reduction Internal Fixation <+> 5 Case Attendee <+> 5 Role Performed <+> 5 Time In <+> 5 Procedure 07/05/21 12:20:34 Processor Helper: ISRAEL Modifier: ISRAEL 1 <*> Procedure Ankle Open Reduction Internal Fixation <+> 2 Case Attendee <+> 2 Role Performed <+> 2 Procedure <+> 3 Case Attendee <+> 3 Role Performed <+> 3 Procedure <+> 4 Case Attendee <+> 4 Role Performed <+> 4 Procedure [facility] IntraOp Case Times Entry 1 Patient In Room Time 07/05/21 13:11:00 Out Room Time 07/05/21 13:53:00 Anesthesia Start Time 07/05/21 13:11:00 Stop Time 07/05/21 13:53:00 Anesthesia Ready 07/05/21 13:11:00 Surgery / Procedure Times Start Time 07/05/21 13:31:00 Stop Time 07/05/21 13:45:00 Last Modified By: Jolie Dacosta RN 07/05/21 13:59:25 [facility] IntraOp Case Times Audit 07/05/21 13:59:25 Processor Helper: ADRIANA Modifier: WELLNISA <+> 1 Out Room Time 07/05/21 13:58:17 Processor Helper: WELLNISA Modifier: WELLNISA <+> 1 Stop Time 07/05/21 13:45:27 Processor Helper: WELLNISA Modifier: WELLNISA <+> 1 Stop Time [facility] IntraOp Cautery Entry 1 ESU Identification Cautery Type Monopolar ESU ID Number [id number] ID Type Hospital Number Cautery Settings Cut Setting 35 Coag Setting 35 ESU Grounding Pad Ground Pad Type Adult Grounding Pad Site Right thigh Grounding Pad Jolie Dacosta, RN Applied By Grounding Pad Site Intact Skin Condition Before Cautery Grounding Pad Site Unchanged Skin Condition After Cautery Last Modified By: Jolie Dacosta RN 07/05/21 12:21:07 [facility] IntraOp Cautery Audit 07/05/21 12:21:07 Processor Helper: ISRAEL Modifier: WELLLAQUITAA <+> 1 Grounding Pad Site [facility] IntraOp Communication Entry 1 Communication To Family/Significant other Comment CLOSING Communication By WILMER MALDONADO JR, JR, MD-ORT Date and Time 07/05/21 13:43:00 Last Modified By: Jolie Dacosta RN 07/05/21 13:43:40 [facility] IntraOp Counts Verification Entry 1 Procedure Ankle Open Reduction Internal Fixation Count Info Count Type Sponge, Sharps Counts Verification Baseline/pre-procedure Sequence Count Results Not Applicable Counts Performed By Count Performed By Addie Small CST (Scrub) Count Performed By Jolie Dacosta, RN (RN) Last Modified By: Jolie Dacosta RN 07/05/21 13:33:27 [facility] IntraOp Counts Verification Audit 07/05/21 13:33:27 Processor Helper: ISRAEL Modifier: WELLNISA 1 <*> Procedure Ankle Open Reduction Internal Fixation 1 <*> Count Performed By (Scrub) EL STILES ST [facility] IntraOp Counts Final Entry 1 Procedure Ankle Open Reduction Internal Fixation Final Count Info Count Type Sponge, Sharps Counts Verification Skin Closure/end of Sequence procedure Count Results Correct, surgeon notified Counts Performed By Count Performed By Addie Small CST (Scrub) Count Performed By Jolie Dacosta RN (RN) Last Modified By: Jolie Dacosta RN 07/05/21 13:41:49 [facility] IntraOp Departure from OR Entry 1 Integumentary Assessment Integumentary WDL Assessment WDL Transfer/Handoff Transfer to PACU Phase I Handoff Method Bedside/Face to face Post-op Transport Stretcher/Gurney Via Patient Transport Jolie Dacosta, СЕРГЕЙ, Accompanied by DA LOMELI NA Last Modified By: Jolie Dacosta RN 07/05/21 13:48:12 [facility] IntraOp Dressing and Packing Entry 1 Type Dressing Location OPERATIVE SITE Wound Dressing Item Xeroform, 4x4's, Webril, Elías Supplemental Other Applications Applied By Felipe Combs, LUDIVINA/SUPPLY MANAGER Other Comments BOOT Last Modified By: Jolie Dacosta RN 07/05/21 13:45:23 [facility] IntraOp Fire Risk Assessment Entry 1 Fire Info Surgical Site or 0- No Incision Above the Xyphoid Open O2 Source 0- No (Mask or Cannula) Available Ignition 1- Yes (ESU, Laser, Light Source) Fire Risk 1 Assessment Score Fire Score Fire Risk Yes Assessment Complete Fire Risk Jolie Dacosta RN Assessment Verified By Fire Risk 07/05/21 13:34:00 Assessment Verified Date/Time Fire Risk High Risk Protocol Yes Implemented Standard Fire Yes Safety Precautions Followed Last Modified By: Jolie Dacosta RN 07/05/21 13:34:49 [facility] IntraOp Fire Risk Assessment Audit 07/05/21 13:34:49 Processor Helper: ISRAEL Modifier: ISRAEL <+> 1 Fire Risk Assessment Verified Date/Time <+> 1 High Risk Protocol Implemented [facility] IntraOp General Case Business Support Manager 1 Case Information OR OR 02 SJE Case Level 1 Room Verified Yes Wound Class 1 - Clean Specialty Orthopedic Anesthesia Type General ASA Class 3 Diagnosis Preop Diagnosis LEFT ANKLE PROXMAL FIBULA FRACTURE WITH AN UNSTABLE SYNDESMOSIS Postop Same As Preop Yes Postop Diagnosis LEFT ANKLE PROXMAL FIBULA FRACTURE WITH AN UNSTABLE SYNDESMOSIS Wound Class Definitions Last Modified By: Jolie Dacosta RN 07/05/21 13:40:41 [facility] IntraOp General Case Data Audit 07/05/21 13:40:41 Processor Helper: ISRAEL Modifier: ISRAEL <+> 1 ASA Class <+> 1 Postop Same As Preop <+> 1 Preop Diagnosis <+> 1 Postop Diagnosis [facility] IntraOp Implant Log Entry 1 Type Implant (Synthetic) Implant Log Implant Type Hardware Implant TIGHTROPE SYNDESMOSIS Identification [id number] Description Implant Quantity 1 Implant Site LEFT ANKLE Implant [id number] Identification Lot Number Implant [employer] Identification Customer Relations Advisor Name: Implant [id number] Identification Catalog Number Implant Has an Yes Expiration Date Implant Expiration 11/06/25 Date Tissue Implant Last Modified By: Jolie Dacosta RN 07/05/21 13:46:32 [facility] IntraOp Intraoperative Assessment Entry 1 Handoff Method Bedside/Face to face Valid History / Yes Physical in Chart Preoperative Yes Checklist Reviewed/Evaluated Allergies Reviewed Yes Patient is Latex No Sensitive Isolation Not applicable Precautions Noted Level of WDL Consciousness (WDL = Alert, Oriented to Person, Place, and Time) Skin Assessment Yes Verified Present Upon IVs Arrival to OR Last Modified By: Jolie Dacosta RN 07/05/21 12:35:14 [facility] IntraOp Intraoperative Equipment Entry 1 Type Equipment Equipment Equipment Елена Suction System ID Number [id number] Setting MED Intraop Monitoring Electrocardiogram Three lead placement (ECG) Electrode Placement Blood Pressure Non-Invasive BP Device Source Antiembolic Devices Scopes Photo/Video Documentation Last Modified By: Jolie Dacosta RN 07/05/21 12:35:44 [facility] IntraOp Patient Positioning Entry 1 Procedure Ankle Open Reduction Internal Fixation Body Position Supine Left Arm Position Secured on padded arm board Right Arm Position Secured on padded arm board Left Leg Position Uncrossed, parallel Right Leg Position Uncrossed, parallel Feet Uncrossed Yes Pressure Points Yes Checked Positioning Devices Arm Board, Safety Strap, Thighs, Sand bags Device Position SANDBAG PLACED UNDER OPERATIVE SIDE. Positioned By Jolie Dacosta RN Position Verified Positioning Yes Verified by Anesthesia Positioning Yes Verified by Surgeon Last Modified By: Jolie Dacosta RN 07/05/21 12:34:52 [facility] IntraOp Sign In Entry 1 Patient, Site, Yes Procedure Identified Surgical Consent Yes Confirmed Relevant Surgical Yes Documents Available Surgical Site Yes Marked by person performing procedure Anesthesia Machine Yes Check Completed Medication Checks Yes Completed Allergies Yes Airway Difficult Yes Airway/Aspiration Risk Difficult Yes Airway/Aspiration Intervention Equipment Available Blood Loss Risk No Blood Loss No Intervention Equipment Prepared and Ready Blood Identifiers Not applicable Verified Per Policy Hypothermia Risk Yes Warming Measures Yes Taken Last Modified By: Jolie Dacosta RN 07/05/21 12:37:28 [facility] IntraOp Sign In Audit 07/05/21 12:37:28 Processor Helper: ISRAEL Modifier: ISRAEL <+> 1 Allergies <+> 1 Difficult Airway/Aspiration Risk <+> 1 Difficult Airway/Aspiration Intervention Equipment Available <+> 1 Blood Loss Risk <+> 1 Blood Loss Intervention Equipment Prepared and Ready <+> 1 Blood Identifiers Verified Per Policy [facility] Intra Op Sign Out Entry 1 RN Confirmation Surgical Yes Procedure(s) Identified Instrument, Sponge Yes and Sharps Counts Correct/Documented Equipment Problems N/A Documented Specimen Labeled N/A Correctly Urinary Catheter N/A Documented in IView Wound Yes classification reviewed, verified and updated post case in both the General Case Data and Procedure segments [place] Patient Yes Recovery Concerns Reviewed with Anesthesia Provider, Surgeon and RN [place] Patient Yes Management Concerns Reviewed with Anesthesia Provider, Surgeon and RN Safety Checklist Yes Elements Complete? RN Sign Out Jolie Dacosta RN Signature RN Sign Out 07/05/21 13:43:00 Signature Date/Time Plan of Care Outcome - Fire Risk OUTCOME STATEMENT: Goal met Patient is free from injury related to surgical fire Plan of Care Outcome - Pt Positioning OUTCOME STATEMENT: Goal met Absence of signs and symptoms of positioning injury. Plan of Care Outcome - Skin Prep OUTCOME STATEMENT: Goal met Intraoperative care is consistent with measures to prevent infection Plan of Care Outcome - Xray/Images OUTCOME STATEMENT: Goal met Absence of observable signs or symptoms of radiation injury Plan of Care Outcome - Counts OUTCOME STATEMENT: Goal met Absence of signs and symptoms of injury related to extraneous objects Last Modified By: Jolie Dacosta RN 07/05/21 13:43:07 [facility] IntraOp Skin Prep Entry 1 Procedure Ankle Open Reduction Internal Fixation Prescribed Yes Pre-Surgical Prep Completed Prep Area OPERATIVE LEG Intraop Prep Integumentary WDL Assessment WDL Prep Agents Chloraprep Prep by Jolie Dacosta RN Hair Removal Methods No hair removal performed Last Modified By: Jolie Dacosta RN 07/05/21 12:21:37 [facility] IntraOp Surgical Procedures Entry 1 Procedure Ankle Open Reduction Internal Fixation Additional SYNDESMOSIS LEFT ANKLE Procedure FIXATION Description Primary Procedure Yes Primary Surgeon WILMER MALDONADO JR, JR, MD-ORT Start 07/05/21 13:31:00 Stop 07/05/21 13:45:00 Anesthesia Type General Specialty Orthopedic Wound Class 1 - Clean Last Modified By: Jolie Dacosta RN 07/05/21 13:59:11 [facility] IntraOp Surgical Procedures Audit 07/05/21 13:59:11 Processor Helper: ISRAEL Modifier: ISRAEL 1 <*> Procedure Ankle Open Reduction Internal Fixation 1 <+> Wound Class 07/05/21 13:58:55 Processor Helper: ISRAEL Modifier: ISRAEL <+> 1 Start <+> 1 Stop [facility] IntraOp Temp Regulation Devices Entry 1 Temp Regulation Temperature Forced Air Warming Regulation Device device Temperature Upper body Regulation Site Temperature HURST, DA, NA Regulation Device Applied by Last Modified By: Jolie Dacosta RN 07/05/21 13:42:03 [facility] IntraOp Time Out Entry 1 Procedure to be Ankle Open Reduction Performed Internal Fixation Time Out Time Out Pause Time 07/05/21 13:30:00 All activity Yes suspended (unless life threatening emergency) Team Verbally Correct patient Confirms Information identity, Correct side and site are marked, Consent form is present and accurate, Agreement on the procedure to be done, Correct patient position, Relevant images/results properly labeled/appropriately displayed, Confirm antibiotics have been administered, Confirm the skin prep has dried, Confirm prosthesis/implant/devic e is present, Performed in location of procedure after prepped/draped Antibiotic Yes Prophylaxis Administered Or In Progress Within the Last 60 Minutes Beta Francisca N/A Administered Venous Yes Thromboembolism Prophylaxis Required Anticipated Critical Events Surgeon None expected Anesthesia Provider None expected Nursing Assures Sterility of instruments, Equipment concerns or issues, Implant Availability Essential Imaging Yes Labeled and Displayed Last Modified By: Jolie Dacosta RN 07/05/21 13:43:25 [facility] IntraOp Time Out Audit 07/05/21 13:43:25 Processor Helper: ISRAEL Modifier: ISRAEL 1 <+> Beta Francisca Administered 1 <*> Procedure to be Performed Ankle Open Reduction Internal Fixation 07/05/21 13:42:26 Processor Helper: ISRAEL Modifier: ISRAEL 1 <+> Time Out Pause Time 1 <*> Procedure to be Performed Ankle Open Reduction Internal Fixation [facility] IntraOp X-Ray and Images Entry 1 X-Ray/Imaging Type Fluoroscopy Fluoroscopy Type C-Arm Site LEFT ANKLE Protective Devices Yes Used Last Modified By: Jolie Dacosta RN 07/05/21 13:26:11 Case Comments <None> Finalized By: Jolie Dacosta RN Document Signatures Signed By: Jolie Dacosta RN 07/05/21 13:59 Jolie Dacosta RN 07/05/21 14:00 Unfinalized History Date/Time Username Reason for Unfinalizing Freetext Reason for Unfinalizing 07/05/21 14:00 ISRAEL Correct Documentation Electronically signed by [facility] Conversion Track Fitter Cerner at 12/23/2022 11:19 PM CDT documented in this encounter Plan of Treatment Not on file documented as of this encounter Visit Diagnoses Not on filedocumented in this encounter
--- OUTSIDE RECORDS SUMMARY | 2025-04-09 14:25 | XMS_ITS | Encounter Summary ---
Author Organization [employer] ([place], [place], [place], [place]) Address [address] [place] [address] Care Team Providers Care After School Program Director Name Role Phone Unavailable Primary Care Provider Unavailabl e Encounter Details Date Type Department Care Team (Late st Contact Info) Description 07/05/2021 Transcribed Document [facility] [place] [address] [place] [address] ProviderPauline MD [address] [place] [address] Social History Tobacco Use Types Packs/Day Years Used Date Smoking Tobacco: Never Assessed Comments Unknown Sex and Gender Information Value Date Recorded Sex Assigned at Not on file Legal Sex Female 5:42 PM CDT Gender Identity Not on file Sexual Orientation Not on file documented as of this encounter Miscellaneous Notes * Cerner Conversion Note - Pauline ProviderMD - 07/05/2021 1:31 PM CDT [facility] OR PostOp Summary Primary Physician: WILMER MALDONADO JR, JR, MD-ORT Finalized Date/Time: 07/05/21 15:33:34 Pt. Name: GÉNESIS SCOTT MARGY Odonnell/Sex: 1960 Female Med Rec #: [id number] Physician: WILMER MALDONADO JR, JR, MD-BELEMT Financial #: [id number] Pt. Type: O Room/Bed: Admit/Disch: 07/05/21 11:08:00 - Institution: [facility] OR PostOp Case Times Entry 1 In PACU II 07/05/21 14:40:00 Ready for PACU II 07/05/21 15:30:00 Discharge Discharge from PACU 07/05/21 15:30:00 II Last Modified By: Elenita Gibbs RN 07/05/21 15:33:32 [facility] OR PostOp Case Times Audit 07/05/21 15:33:32 Retail Commission Sales Associate: [id number] Modifier: [id number] <+> 1 Ready for PACU II Discharge <+> 1 Discharge from PACU II Finalized By: Elenita Gibbs RN Document Signatures Signed By: Elenita Gibbs RN 07/05/21 15:33 documented in this encounter Plan of Treatment Not on file documented as of this encounter Visit Diagnoses Not on filedocumented in this encounter
--- OUTSIDE RECORDS SUMMARY | 2025-04-09 14:26 | XMS_ITS | Encounter Summary ---
Author Organization [facility] Address [address] [place] [address] Care Team Providers Care Assembler Clip On Sunglasses Name Role Phone Lizzeth Devlin ROBOTICS TECHNOLOGIST Primary Care Provider [phone] Encounter Details Date Type Department Care Team (Late Contact Info) Description 04/01/2025 Telephone Medical Office Building [facility] [address], [address] [place] [address] Maura Adames, GONZALES [address] [place] [address] Social History Tobacco Use Types Packs/Day Years [...] as of this encounter Miscellaneous Notes * Telephone Encounter - Tres Brown - 04/01/2025 9:37 AM EDT CALL PLACED, ACCEPTED 05/12/25 1P DIXON COPELAND documented in this encounter Plan of Treatment Upcoming Encounters Date Type Department Care Team (Late Contact Info) Description 05/12/2025 1:00 PM EDT Office Visit Medical Office Building [facility] [address], [address] [place] [address] Maura Adames PA [address] [facility] [address] [place] [address] documented as of this encounter Visit Diagnoses Not on filedocumented in this encounter Additional Health Concerns Assessment Noted Time A Body Mass Index follow-up plan has been documented for the patient 04/01/2025 8:25 AM EDT documented as of this encounter Care Teams Assembler Clip On Sunglasses Relationship Specialty Start Date End Date Lizzeth Devlin APRN [address] [place] [address] [address] [place] [address] PCP - General 01/20/21 documented as of this encounter
--- OUTSIDE RECORDS SUMMARY | 2025-04-09 14:26 | XMS_ITS | Encounter Summary ---
Author Organization [employer] ([place], [place], [place], [place]) Address [address] [place] [address] Care Team Providers Care Record Clerk Name Role Phone Unavailable Primary Care Provider Unavailabl e Encounter Details Date Type Department Care Team (Late st Contact Info) Description 07/05/2021 Transcribed Document [facility] [place] [address] [place] [address] ProviderPauline MD [address] [place] [address] Social History Tobacco Use Types Packs/Day Years Used Date Smoking Tobacco: Never Assessed Comments Unknown Sex and Gender Information Value Date Recorded Sex Assigned at Not on file Legal Sex Female 5:42 PM CDT Gender Identity Not on file Sexual Orientation Not on file documented as of this encounter Miscellaneous Notes * Cerner Conversion Note - Pauline Patel MD - 07/05/2021 12:46 PM CDT Peripheral Nerve Block Entered On: 07/05/2021 12:59 EDT Performed On: 07/05/2021 12:46 EDT by Mary Smith RN Peripheral Nerve Block Peripheral Nerve Block Start Date/Time : 07/05/2021 12:49 EDT Time Out Pause Time : 07/05/2021 12:45 EDT Site Marked and Visible : Yes Site Preparation : Chlorhexidine (Hibiclens) Peripheral Nerve Block : Popliteal Laterality : Left Peripheral Nerve Block Performed by : MONICA NICOLAS MD Medication Delivery Method : Single Shot Peripheral Nerve Block Assisted by : MELY APPLE RN Ultra sound used during insertion : Yes Nerve Block Activity, Patient Tolerance : Good Peripheral Nerve Block End Date/Time : 07/05/2021 12:59 EDT Mary Smith RN - 07/05/2021 12:46 EDT documented in this encounter Plan of Treatment Not on file documented as of this encounter Visit Diagnoses Not on filedocumented in this encounter
--- OUTSIDE RECORDS SUMMARY | 2025-04-09 14:26 | XMS_ITS | Encounter Summary ---
Author Organization [employer] ([place], [place], [place], [place]) Address [address] [place] [address] Care Team Providers Care School Age Teacher Name Role Phone Unavailable Primary Care Provider Unavailabl e Encounter Details Date Type Department Care Team (Late st Contact Info) Description 07/05/2021 Transcribed Document [facility] [place] Family Medicine [facility] [place] [address] ProviderPauline MD [address] [place] [address] Social History Tobacco Use Types Packs/Day Years Used Date Smoking Tobacco: Never Assessed Comments Unknown Sex and Gender Information Value Date Recorded Sex Assigned at Not on file Legal Sex Female 5:42 PM CDT Gender Identity Not on file Sexual Orientation Not on file documented as of this encounter Miscellaneous Notes * Cerner Conversion Note - Pauline Patel MD - 07/05/2021 1:55 PM CDT DATE OF PROCEDURE: 07/05/2021 SURGEON: Amando Serrano Jr, MD PREOPERATIVE DIAGNOSES: Proximal fibula fracture with syndesmosis disruption, left ankle traumatic injury. POSTOPERATIVE DIAGNOSES: Proximal fibula fracture with syndesmosis disruption, left ankle traumatic injury. PROCEDURE PERFORMED: Syndesmosis fixation using an [employer] TightRope. COMPLICATIONS: None. BLOOD LOSS: Minimal. TOURNIQUET: Not used. DESCRIPTION OF PROCEDURE: The patient was taken to the operating room, placed in supine position under adequate general anesthesia, sterile prep and drape of the left leg, time-out observed, IV antibiotics given. Fluoro was brought into position and showed instability of the syndesmosis with a proximal fibula fracture. We under fluoro control, made a small 1 cm incision about the lateral distal fibula. Blunt dissection carried down to the cortex and then the drill bit for the TightRope device was placed across the two cortices of the fibula and exiting medially just above the epiphyseal scar at the syndesmosis. The implant was then passed through the drill bit pathway and deployed on the far cortex. It was then tensioned with the foot in neutral position allowing reduction of the syndesmosis with a normal mortise view noted after tensioning the TightRope device and we confirmed good position in AP and lateral views closure in layered fashion. No undue bleeding noted. The patient was placed in a soft dressing and then a CAM walker for toe-touch weightbearing. She can change the dressing in 2 days for shower, applied Band-Aids. Continue toe-touch weightbearing until followup with removal of the CAM walker for range of motion as tolerated. Status post ankle fracture fixation, syndesmosis disruption with proximal fibula fracture, left ankle. /[id number] MD LENORA Roldan Jr/BETHANIE / LENORA / MODL /[id number] documented in this encounter Plan of Treatment Not on file documented as of this encounter Visit Diagnoses Not on filedocumented in this encounter
--- OUTSIDE RECORDS SUMMARY | 2025-04-09 14:26 | XMS_ITS | Encounter Summary ---
Author Organization [email or web address] ([place], [place], [place], [place]) Address [address] [place] [address] Care Team Providers Care Pharmacy Account Director Name Role Phone Unavailable Primary Care Provider Unavailabl e Encounter Details Date Type Department Care Team (Late st Contact Info) Description 07/05/2021 Transcribed Document [facility] [place] Family Medicine [address] [place] [address] ProviderPauline MD [address] [place] [address] Social History Tobacco Use Types [...] ProviderMD - 07/05/2021 1:31 PM CDT [facility] OR PACU Summary Primary Physician: WILMER MALDONADO JR, JR, MD-ORT Finalized Date/Time: 07/05/21 14:33:40 Pt. Name: GÉNESIS SCOTT MARGY Odonnell/Sex: 1960 Female Med Rec #: [id number] Physician: WILMER MALDONADO JR, JR, MD-ORT Financial #: [id number] Pt. Type: O Room/Bed: Admit/Disch: 07/05/21 11:08:00 - Institution: [facility] OR PACU Case Times Entry 1 In PACU I 07/05/21 13:54:00 Ready for PACU 07/05/21 14:34:00 Discharge Discharge from PACU 07/05/21 14:33:00 I Last Modified By: Erika Anguiano, СЕРГЕЙ 07/05/21 14:33:31 [facility] OR PACU Case Times Audit 07/05/21 14:33:31 Net Developer Software Engineer C: KEYA Modifier: KEYA <+> 1 Ready for PACU Discharge <+> 1 Discharge from PACU I Finalized By: Erika Anguiano, RN Document Signatures Signed By: Erika Anguiano RN 07/05/21 14:33 Electronically signed by Kim [facility] Conversion Radio Journalist Cerner at 12/23/2022 11:40 PM CDT documented in this encounter Plan of Treatment Not on file documented as of this encounter Visit Diagnoses Not on filedocumented in this encounter
--- OUTSIDE RECORDS SUMMARY | 2025-04-09 14:26 | XMS_ITS | Encounter Summary ---
Author Organization [employer] ([place], [place], [place], [place]) Address [address] [place] [address] Care Team Providers Care Service Observer Chief Name Role Phone Unavailable Primary Care Provider Unavailabl e Encounter Details Date Type Department Care Team (Late st Contact Info) Description 07/05/2021 Transcribed Document [facility] [place] Family Medicine [address] [place] [address] ProviderPauline MD [address] [place] [address] Social History Tobacco Use Types [...] Patel MD - 07/05/2021 12:46 PM CDT Time Out Documentation Entered On: 07/05/2021 12:46 EDT Performed On: 07/05/2021 12:46 EDT by Mary Smith RN Time Out Documentation Procedure to be Performed : left popliteal nerve block Time Out Pause Time : 07/05/2021 12:45 EDT All Activity Suspended : Yes Team Verbally Confirms Information : Correct side and site are marked, Consent form is present and accurate, Agreement on the procedure to be done, Correct patient position, Confirm the skin prep has dried, Performed in location of procedure after prepped/draped, Performed before each procedure if multiple procedures, Reconcile problems if responses among team members differ Mary Smith, СЕРГЕЙ - 07/05/2021 12:46 EDT documented in this encounter Plan of Treatment Not on file documented as of this encounter Visit Diagnoses Not on filedocumented in this encounter
--- OUTSIDE RECORDS SUMMARY | 2025-04-09 14:26 | XMS_ITS | Encounter Summary ---
Author Organization [employer] ([place], [place], [place], [place]) Address [address] [place] [address] Care Team Providers Care Center Hole Reamer Name Role Phone Unavailable Primary Care Provider Unavailabl e Encounter Details Date Type Department Care Team (Late st Contact Info) Description 07/05/2021 Transcribed Document [facility] [place] Family Medicine [address] [place] [address] ProviderPauline MD [address] [place] [address] Social History Tobacco Use Types Packs/Day Years Used Date Smoking Tobacco: Never Assessed Comments Unknown Sex and Gender Information Value Date Recorded Sex Assigned at Not on file Legal Sex Female 5:42 PM CDT Gender Identity Not on file Sexual Orientation Not on file documented as of this encounter Miscellaneous Notes * Cerner Conversion Note - Pauline ProviderMD - 07/05/2021 11:59 AM CDT PAT Adult Entered On: 07/05/2021 12:02 EDT Performed On: 07/05/2021 11:59 EDT by Elenita Gibbs RN Vital Measurements Temperature Source : Temporal artery scanning Temperature Mode : Fahrenheit Temperature, Fahrenheit : 97.2 Deg F Clinical Temperature, C : 36.2 Deg C Pulse Method : Pulse Oximetry Peripheral Pulse Rate : 88 bpm Pulse Rhythm : Regular Respiratory Rate : 18 Breaths/Min Blood Pressure Location : Arm, left upper Blood Pressure Source : Non-Invasive BP Device Blood Pressure Position : Sitting Systolic Blood Pressure : 147 mmHg (HI) Diastolic Blood Pressure : 98 mmHg (HI) Oxygen Saturation : 100 % Oxygen Therapy Mode : Room air Elenita Gibbs RN - 07/05/2021 12:20 EDT Pain Assessment Pain Assessment : Initial assessment Pain Scale Goal : 4 Pain Scale Used : 0-10 Scale Location : Leg, left Onset : Constant Quality : Pressure Pain Radiation : No Gibbs, Elenita J, RN - 07/05/2021 11:59 EDT Height and Weight, Clinical Dosing Height Source : Stated Height Entry Format : [place] Height, Feet : 5 ft(Converted to: 152 cm, 60 Inch) Height, Inches : 5 Inch(Converted to: 0 ft 5 Inch, 12.70 cm) Clinical Height : 165.1 cm Weight Source : Standing scale Weight Entry Format : [place] Clinical Dosing Weight : 149.09 kg Weight, Pounds : 328 lb Body Surface Area (BSA) : 2.44 m2 Body Mass Index : 54.7 kg/m2 (>HHI) Agenda Body Weight : 57 kg Elenita Gibbs RN - 07/05/2021 11:59 EDT Health Histories Smoking Status : Never (less than 100 in lifetime; none in last 30 days) Smokeless Tobacco Status : Never Elenita Gibbs RN - 07/05/2021 11:59 EDT Social History (As Of: 07/05/2021 12:22:39 EDT) Tobacco: Use in Last 12 Months: No. (Last Updated: 03/28/2014 16:33:10 EDT by HUSSEIN MITCHELL PA) Alcohol: Use in Last 12 Months: No. (Last Updated: 03/28/2014 16:32:46 EDT by HUSSEIN MITCHELL PA) Substance Abuse: Drug Use Hx: No. 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 (Last Updated: 03/28/2014 16:33:00 EDT by HUSSEIN MITCHELL PA) Infectious Disease History Patient Masked? : Yes When Mask Placed on Patient? : upon arrival to hospital Elenita Gibbs RN - 07/05/2021 12:20 EDT Does patient have symptoms of COVID-19? : No Has the Patient Been Tested for COVID-19 in the last 14 days? : Yes, Patient stated results Negative Where and When was COVID19 testing completed? : [facility] 07/04/21 Does the Patient state known exposure to a COVID-19 positive case in the last 14 days? : No Patient Vaccinated for COVID-19 : Not vaccinated Does Patient want a COVID-19 Vaccine? : No Elenita Gibbs RN - 07/05/2021 11:59 EDT Infectious Disease Risk Screening Grid Cough < 2 wks of unknown origin : NO Cough > 2 weeks : NO Blood in Sputum : NO Fever or self-reported Fever : NO Rash of unknown origin : NO Headache : NO Stiff neck : NO Night Sweats : NO Unexplained Weight Loss : NO Diarrhea (3 episode per day) : NO Elenita Gibbs RN - 07/05/2021 11:59 EDT Physical contact outside [place] in the last 30 days : No Hospitalized in Foreign Country : No Infectious Disease History : None Childhood Vaccinations Up to Date : N/A Exposure to Contagious Illness : No Active Surveillance Screen Assessment : Patient does not meet any of above criteria Active Surveillance Screen Negative : Yes INF Disease TB Screening Calc : 0 INF Disease Recent Travel Calc : 0 Elenita Gibbs RN - 07/05/2021 11:59 EDT COVID19 PreProcedure Screening Is this an Emergent or Add on Procedure? : No Date PreProcedure COVID-19 test known? : Yes Date of PreProcedure COVID-19 : 07/04/2021 EDT Has patient been isolated since the test : Yes Exposed to COVID19 symptoms since test? : No Elenita Gibbs RN - 07/05/2021 12:20 EDT Anesthesia/Transfusion History Family History of Anesthesia Reaction : No prior transfusion(s) Transfusion History : Prior anesthesia without reaction Family History of Anesthesia Reaction : None Elenita Gibbs RN - 07/05/2021 11:59 EDT Functional Assessment ADL Index Score : 12 Elenita Gibbs RN - 07/05/2021 12:20 EDT Functional ADL Evaluation Index EBN Toileting : Independent (2) Transferring Bed or Chair : Independent (2) Continence : Independent (2) Feeding : Independent (2) Elenita Gibbs RN - 07/05/2021 12:20 EDT Bathing : Independent (2) Dressing : Independent (2) Advance Directive Patient has Advance Directive *Q : Yes, Advance Directive not with the patient Advance Directive Type : Living will Copy Advance Directive Verified/on Chart : No Elenita Gibbs RN - 07/05/2021 11:59 EDT Spiritual/Cultural Needs Any Spiritual/Cultural Needs or Requests : Yes Pentecostal Preference : [employer] ([employer]) Elenita Gibbs RN - 07/05/2021 11:59 EDT [place] Suicide Severity Rating Scale (C-SSRS) CSSRS Past Month Wish to be : No CSSRS Past Month Suicidal Thoughts : No CSSRS Lifetime Suicide Behavior : No Suicide Severity Rating Score : 0 Suicide Severity Rating : No Additional Care Required at this time Thoughts of Harming/Killing Others : No Elenita Gibbs RN - 07/05/2021 12:20 EDT Psychosocial History Currently in Unsafe Situation : No Elenita Gibbs RN - 07/05/2021 12:20 EDT Do You Have a History of the Following? : Patient denies history Elenita Gibbs RN - 07/05/2021 11:59 EDT Teaching/Learning Assessment Barriers To Learning : None evident Individuals Taught : Patient, Child Readiness to Learn : Cooperative Baseline Knowledge of Topic : Good Readiness to Learn : Explanation Learning Style Preferences Patient : Printed materials, Verbal explanation Learning Style Preferences Family : Printed materials, Verbal explanation Elenita Gibbs RN - 07/05/2021 12:20 EDT General Info Preferred Name : Génesis Arrived From : Home Mode of Arrival on Unit : Ambulatory Patient Arrival Date/Time : 07/05/2021 11:15 EDT Legal Guardian : Daughter Want Family/Rep/Phys Notified of Admit : No Emergency Contact #2 : . Emergency Contact #2 Phone Number : . Emergency Contact #2 Relationship : . Information Obtained From : Patient Preferred Communication Mode : Verbal Turbine Room Attendant Needed : No Objects to Sharing Info w Family : No Currently Lactating : No Status : Menopause Clinical Trials Participant *Q : None Elenita Gibbs RN - 07/05/2021 12:20 EDT Emergency Contact #1 : Jacky Emergency Contact #1 Emergency Contact #1 Relationship : Daughter Primary Language : East Timorese Communication Barrier : None Elenita Gibbs RN - 07/05/2021 11:59 EDT Domenic Scale Domenic Sensory Perception : No impairment Domenic Moisture : Rarely moist Domenic Activity : Walks occasionally Domenic Mobility : Very limited Domenic Nutrition : Adequate Domenic Friction and Shear : No apparent problem Domenic Score : 19 Elenita Gibbs RN - 07/05/2021 12:20 EDT Sleep Apnea Risk Assmt BiPAP/CPAP Ordered for Home Use : Yes Hx of Obstructive Sleep Apnea Diagnosis : Yes BiPAP/CPAP Used at Home : Yes Age over 50 Years Old : Yes Gender Male : No Elenita Gibbs RN - 07/05/2021 11:59 EDT Pain Scale Intensity : 2 Elenita Gibbs RN - 07/05/2021 11:59 EDT Image 4 - Images currently included in the form version of this document have not been included in the text rendition version of the form. documented in this encounter Plan of Treatment Not on file documented as of this encounter Visit Diagnoses Not on filedocumented in this encounter
--- OUTSIDE RECORDS SUMMARY | 2025-04-09 14:26 | XMS_ITS | Clinical Summary ---
Author Organization [facility] Address [address] [place] [address] Care Team Providers Care Chemical Supervisor Name Role Phone Lizzeth Devlin CHICKEN VACCINATOR Primary Care Provider [phone] Allergies Active Allergy Reactions Criticality Noted Date Comments Amoxicillin-Pot Clavulanate Unknown - Pa tient states they do not know rxn details Low 08/22/2016 Cephalexin Unknown - Patient st ates they do not know rxn details Low 08/22/2016 Erythromycin Unknown - Patient st ates they do not know rxn details Low 11/21/2016 Hydrocodone-Acetaminophen Unknown - Aide ent states they do not know rxn details Low 01/08/2018 Meloxicam Unknown - Patient st ates they do not know rxn details Low 08/22/2016 Nabumetone Unknown - Patient st ates they do not know rxn details Low 08/22/2016 Oxycodone-Acetaminophen Unknown - Patien t states they do not know rxn details Low 01/08/2018 Penicillins Unknown - Patient st ates they do not know rxn details Low 08/22/2016 Diclofenac Unknown - Patient st ates they do not know rxn details Low 08/22/2016 Medications torsemide (Demadex) 20 MG tablet Take 1 tablet by mouth daily as needed. 4 Active spironolactone (Aldactone) 25 MG tablet Take 1 tablet by mouth daily. 7 Active predniSONE (Deltasone) 20 MG tablet Take 1 tablet by mouth daily. Active prednisoLONE acetate (Pred-Forte) 1 % ophthalmic suspension INSTILL 1 DROP TO THE AFFECTED EYE 4 TIMES DAILY SART AFTER SURGERY Active oxaprozin (Daypro) 600 MG tablet Take 1 tablet by mouth daily. Active omeprazole (PriLOSEC) [address] capsule daily. Active Multiple Vitamins-Iron tablet 8 Active moxifloxacin (Vigamox) 0.5 % ophthalmic solution INSTILL 1 DROP IN AFFECTED EYE(S) FOUR TIMES DAILY 5 Active Mometasone Furoate (Asmanex HFA) 200 MCG/ACT aerosol Inhale 2 puffs. 4 Active methylPREDNISol one (Medrol Dospak) 4 MG tablets follow package directions 4 Active levocetirizine (Xyzal) 5 MG tablet Take 1 tablet by mouth daily. Active ketorolac (Toradol) 60 MG/2ML solution Acti ve ketorolac (Acular) 0.4 % ophthalmic solution INSTILL 1 DROP TO MAXIMUS AFFECTED EYE 4 TIMES DAILY START AFTER SURGERY Active ipratropium-alb uterol (Combivent Respimat) 20-100 MCG/ACT inhaler Inhale 1 puff 4 times a day. 4 Active ipratropium-alb uterol (Combivent Respimat) 20-100 MCG/ACT inhaler Inhale 1 puff 4 times a day by inhalation route. Active Ipratropium [place] HFA (ATROVENT HFA IN) Four times a day Act moustapha gabapentin (Neurontin) 300 MG capsule Take 1 capsule by mouth 3 times a day. 4 Active Dupilumab (DUPIXENT SC) Active Dupixent 300 MG/2ML solution prefilled syringe injection INJECT 2ML UNDER THE SKIN INTO THE APPROPRIATE AREA DIRECTED EVERY 14 DAYS 5 Active doxycycline (Vibramycin) 100 MG capsule Take by mouth daily. Active diclofenac (Voltaren) 1 % topical gel 9 Active dexlansoprazole (Dexilant) [address] capsule Take 1 capsule by mouth 1 time each day. Active dexlansoprazole (Dexilant) [address] capsule Take by mouth daily. 6 Active cyclobenzaprine (Flexeril) 10 MG tablet as needed. 6 Active clindamycin (Cleocin) 300 MG capsule TAKE 1 CAPSULE BY MOUTH THREE TIMES DAILY FOR 7 DAYS Active cetirizine (ZyrTEC) 10 MG tablet Take 1 tablet by mouth 1 time each day. Active cetirizine (ZyrTEC ALLERGY) 10 MG tablet Take 1 tablet by mouth. Active cefdinir (Omnicef) 300 MG capsule Take 1 capsule by mouth 2 times a day. Active budesonide-form oterol (Symbicort) 160-4.5 MCG/ACT inhaler 2 puffs 2 times a day. RINSE MOUTH AFTER USE 8 Active Breztri Aerosphere 160-9-4.8 MCG/ACT aerosol Inhale 2 puffs 2 times a day. Active brimonidine (AlphaGAN P) 0.15 % ophthalmic solution 1 drop twice a day. Active aspirin 325 MG tablet 7 Active albuterol 108 (90 Base) MCG/ACT inhaler INHALE 2 PUFFS EVERY 6 HOURS NEEDED FOR WHEEZING OR SHORTNESS OF AIR 8 Active acetaminophen-c affeine-pyrilam ine (Midol Complete) 500-60-15 MG tablet tablet Take 2 tablets by mouth. Active Albuterol Sulfate, sensor, 108 (90 Base) MCG/ACT aerosol powder Inhale 2 puffs every 4 hours. Active furosemide (Lasix) 40 MG tablet daily. 6 Active Active Problems Problem Noted Date Diagnosed Date Class III obesity with body mass index (BMI) of 40.0 or higher 04/01/2025 Encounters Date Type Department Care Team Description 04/01/2025 Telephone Medical Office [facility] [address] [facility] [address], [address] [place] [address] Maura Adames PA 03/23/2025 1:00 PM EDT Office Visit [facility]arn[facility] Bowden [address] [place] [address] Arsalan Diaz MD Weakness of hand (Primary Dx) 03/23/2025 Travel from Last 3 Months Family History Medical History Relation Name Comments Diabetes Other 1 Hypertension Other 2 Relation Name Status Comments Other 1 Other 2 Social History Tobacco Use Types Packs/Day Years [...] on file Sexual Orientation Not on file Last Filed Vital Signs Vital Sign Reading Time Taken Comments Blood Pressure 125/72 03/23/2025 1:00 PM EDT Pulse 107 03/23/2025 1:00 PM EDT Temperature 36.6 C (97.9 F) 12/02/2018 2:23 PM EDT Respiratory Rate 16 12/02/2018 2:23 PM EDT Oxygen Saturation 93% 03/23/2025 1:00 PM EDT Inhaled Oxygen Concentration - - Weight 172 kg (380 lb) 03/23/2025 1:00 PM EDT Height 160 cm (5' 3 ) 03/23/2025 1:00 PM EDT Body Mass Index 67.31 03/23/2025 1:00 PM EDT Plan of Treatment Upcoming Encounters Date Type Department Care Team (Late st Contact Info) Description 05/12/2025 1:00 PM EDT Office Visit Medical Office Building [facility] [address], [address] [place] [address] Maura Adames, PA [address] [place] [address] Health Maintenance Due Date Last Done Comments Dental Oral Exam 1960 Dental Prophylaxis 1960 Dental X-Ray: Bitewings 1960 Dental X-Ray: Full Mouth 1960 [facility]-HIV Screening 1960 [facility]-Hepatitis C Screening 1960 [facility]-/Child/Adol SDOH Screenings 1960 [facility]- SDOH Screenings 1980 [facility]-Adult SDOH Screenings 1980 [facility]-Pap Smear 1983 [facility]-Cervical Cancer Screening 1992 [facility]-HPV/Cotest 1992 CT Colonography 2007 Colonoscopy 2007 FIT-DNA 2007 FIT 2007 FOBT 2007 Sigmoidoscopy 2007 [facility]-Colorectal Cancer Screening 2007 [facility]-Breast Cancer Screening 2012 [facility]-Pneumococcal Vaccine: 50+ Years (1 of 1 - PCV) 2012 [id number] Vaccine (2 - Pfizer risk series) 02/06/2022 01/16/2022 [facility]-Zoster Vaccines (2 of 2) 03/01/2025 01/04/2025 [facility]-Influenza Vaccine (#1) 2025 [facility]-Medicare Annual Wellness (AWV) 03/15/2026 03/15/2025, 03/10/2024, 01/29/2023, Additional history exists [facility]-Depression Screening 03/23/2026 03/23/2025 [facility]-DTaP,Tdap,and Td Vaccines (2 - Td or Tdap) 07/11/2033 07/11/2023 [facility]-RSV Vaccine: 60+ Years or Completed 01/04/2025 [facility]-Obesity Intervention Completed 03/23/2025 HPV Vaccines Aged Out No longer eligi ble based on patient's age to complete this topic [facility]-HIB Vaccines Aged Out No longer e ligible based on patient's age to complete this topic [facility]-Hepatitis A Vaccines Aged Out No longer eligible based on patient's age to complete this topic [facility]-IPV Vaccines Aged Out No longer e ligible based on patient's age to complete this topic [facility]-Rotavirus Vaccines Aged Out No lo nger eligible based on patient's age to complete this topic [place] [address] [place] [address] D[address]AL PLAN [facility] MEDICARE [place]ICAID[place] Care Teams Chemical Supervisor Relationship Specialty Start Date End Date Lizzeth Devlin, VALERIO [address] [place] [address] [place] [address] PCP - General 01/20/21
--- OUTSIDE RECORDS SUMMARY | 2025-04-09 14:26 | XMS_ITS | Encounter Summary ---
Author Organization [employer] ([place], [place], [place], [place]) Address [address] [place] [address] Care Team Providers Care Toll Settlement Clerk Name Role Phone Unavailable Primary Care Provider Unavailabl e Encounter Details Date Type Department Care Team (Late st Contact Info) Description 07/05/2021 Transcribed Document [facility] Family Medicine [address] [place] [address] ProviderPauline MD [address] [place] [address] Social History Tobacco Use Types Packs/Day Years Used Date Smoking Tobacco: Never Assessed Comments Unknown Sex and Gender Information Value Date Recorded Sex Assigned at Not on file Legal Sex Female 5:42 PM CDT Gender Identity Not on file Sexual Orientation Not on file documented as of this encounter Miscellaneous Notes * [employer]ner Conversion Note - Historical ProviderMD - 07/05/2021 2:46 PM CDT Event Note Entered On: 07/05/2021 14:46 EDT Performed On: 07/05/2021 14:46 EDT by Erika Anguiano RN Event Note Event Date/Time : 07/05/2021 14:15 EDT Description of Event : Lilian Boyd RN, vocational case manager notifed of pts need for a walker Erika Anguiano, СЕРГЕЙ - 07/05/2021 14:46 EDT Electronically signed by Kim [facility] Conversion Bellmaker [employer]ner at 12/23/2022 11:29 PM CDT documented in this encounter Plan of Treatment Not on file documented as of this encounter Visit Diagnoses Not on filedocumented in this encounter
--- OUTSIDE RECORDS SUMMARY | 2025-04-09 14:26 | XMS_ITS ---
Author Organization [facility] Address [address] [place] [address] Care Team Providers Care Ethnoarchaeologist Name Role Phone Favian Ruiz MD Primary Care Provider [phone] Asthma - External Fill Status:Enrolled (Active) Start date:11/27/2024 Enrollment date:11/27/2024 Current support & services provided:Refill Coordination , Benefits Investigation, Prior Authorization, External Pharmacy Dispensing Linked medications:Dupilumab (Active) Linked problems:Asthma (Active) Continued Care and Services Coordination
--- OUTSIDE RECORDS SUMMARY | 2025-04-09 14:26 | XMS_ITS | Encounter Summary ---
Author Organization [employer] ([place], [place], [place], [place]) Address [address] [place] [address] Care Team Providers Care Human Resources Admin Name Role Phone Unavailable Primary Care Provider Unavailabl e Encounter Details Date Type Department Care Team (Late st Contact Info) Description 07/05/2021 Transcribed Document [facility] [place] [facility] Family Medicine [address] [place] [address] ProviderPauline MD [address] [place] [address] Social History Tobacco Use Types [...] Patel MD - 07/05/2021 12:59 PM CDT Time Out Documentation Entered On: 07/05/2021 12:59 EDT Performed On: 07/05/2021 12:59 EDT by Mary Smith RN Time Out Documentation Procedure to be Performed : left adductor canal block Time Out Pause Time : 07/05/2021 12:59 EDT All Activity Suspended : Yes Team Verbally Confirms Information : Correct patient identity, Correct side and site are marked, Consent form is present and accurate, Agreement on the procedure to be done, Correct patient position, Confirm the skin prep has dried, Performed in location of procedure after prepped/draped, Performed before each procedure if multiple procedures, Reconcile problems if responses among team members differ Mary Smith RN - 07/05/2021 12:59 EDT Electronically signed by Yung Alvarez Conversion [employer] Plant Operations Engineer Gustavo at 12/23/2022 11:25 PM CDT documented in this encounter Plan of Treatment Not on file documented as of this encounter Visit Diagnoses Not on filedocumented in this encounter
--- OUTSIDE RECORDS SUMMARY | 2025-04-09 14:26 | XMS_ITS | Encounter Summary ---
Author Organization [facility] Address [address] [place] [address] Care Team Providers Care Auto Brake Mechanic Name Role Phone Lizzeth Devlin DENTAL HYGIENE PROFESSOR Primary Care Provider [phone] Encounter Details Date Type Department Care Team (Latest Contact Info) Description 03/23/2025 Travel Social History Tobacco Use Types Packs/Day Years [...] on file documented as of this encounter Functional Status * Over the [...] Mishel Toribio documented as of this encounter Plan of Treatment Upcoming Encounters Date Type Department Care Team (Late st Contact Info) Description 05/12/2025 1:00 PM EDT Office Visit Medical Office Building [facility] [address] [facility], [address] [place] [id number] Marua Adames, GONZALES [address] [place] [address] documented as of this encounter Visit Diagnoses Not on filedocumented in this encounter Additional Health Concerns Assessment Noted Time A Body Mass Index follow-up plan has been documented for the patient 04/01/2025 8:25 AM EDT documented as of this encounter Care Teams Auto Brake Mechanic Relationship Specialty Start Date End Date Lizzeth Devlin APRN [address] [place] [address] [address] [place] [address] PCP - General 01/20/21 documented as of this encounter
--- NOTE | 2025-04-09 14:33 | PC.NURSE ---
RT notified of VBG
[2025-04-09 14:39] LABS: Hematocrit 40.0 % (37.0-47.0); Hemoglobin 12.1 g/dL (12.2-16.2); Immature Granulocytes % 0.4 %; Mean Corpuscular HGB Conc 30.3 g/dL (31.8-35.4); Mean Corpuscular Hemoglobin 24.1 pg (27.0-31.2); Mean Corpuscular Volume 79.7 fl (81-99); Nucleated Red Blood Cells % 0 %; Platelet Count 338 K/mm3 (142-424); Red Blood Count 5.02 M/mm3 (4.20-5.40); Red Cell Distribution Width-SD 51.2 fL; White Blood Count 8.3 K/mm3 (4.8-10.8)
[2025-04-09 14:41] LABS: VBG HCO3 21.8 mmol/L (23-30); VBG PCO2 32.7 mmol/L (35-51); VBG PH 7.44 mmol/L (7.31-7.41); VBG PO2 86.8 mmol/L (28-40)
[2025-04-09 14:42] LABS: Lactate Venous 2.7 mmol/L (0.4-2.0)
[2025-04-09 15:01] LABS: Alanine Aminotransferase 43 U/L (12-78); Albumin Level 4.2 g/dl (3.5-5.0); Albumin/Globulin Ratio 1.4 (1.1-1.8); Alkaline Phosphatase 105 U/L (38-126); Aspartate Amino Transferase 58 U/L (14-36); Bilirubin,Total 0.3 mg/dl (0.2-1.3); Blood Urea Nitrogen 12 mg/dl (7-17); Calcium 9.9 mg/dl (8.4-10.2); Carbon Dioxide 23 mmol/L (22.0-30.0); Chloride 111 mmol/L (98-107); Creatinine Clearance Estimated 48 mL/min (50-200); Creatinine,Serum 0.70 mg/dl (0.52-1.04); Estimated Glomerular Filt Rate 85 ml/min (>60); GFR (African American) 102 ML/MIN (>60); Globulin 2.9 g/dL (1.3-3.2); Glucose 125 mg/dl (74-100); Sodium 142 mmol/L (136-145); Total Protein,Serum 7.1 g/dl (6.3-8.2)
[2025-04-09 15:05] LABS: D-Dimer 1.00 ug/mL (0.0-0.5)
[2025-04-09 15:10] LABS: Anion Gap 12.3 mEq/L (5-15); Potassium 4.3 mmoL/L (3.5-5.1)
[2025-04-09 15:12] LABS: NT Pro Brain Natriuretic Pep. 33.7 pg/mL (0-125)
--- NOTE | 2025-04-09 15:13 | PC.NURSE ---
spoke with the hospitalist about admission. The hospitalist states he would like to contact prior to accepting.
[2025-04-09 15:15] LABS: Troponin I < 0.01 ng/ml (0.00-0.034)
--- NOTE | 2025-04-09 15:35 | CT_ITS ---
PROCEDURE INFORMATION: Exam: CTA Chest Without And With Contrast Exam date and time: 04/09/2025 4:08 PM Age: 65 years old Clinical indication: Shortness of breath and other: Back pain, tachy, elevated dimer; Additional info: SOA, back pain, tachy, elevated dimer TECHNIQUE: Imaging protocol: Computed tomographic angiography of the chest without and with contrast. Exam focused on the arteries. 3D rendering (Not supervised by radiologist): MIP and/or 3D reconstructed images were created by the technologist. Radiation optimization: All CT scans at this facility use at least one of these dose optimization techniques: automated exposure control; mA and/or kV adjustment per patient size (includes targeted exams where dose is matched to clinical indication); or iterative reconstruction. Contrast material: ISOVUE; Contrast volume: 75 ml; Contrast route: INTRAVENOUS (IV); COMPARISON: CT ANGIO CHEST PE PROTOCOL 12/22/2023 11:53 AM FINDINGS: Pulmonary arteries: No evidence of pulmonary embolus to the segmental level. Aorta: No aneurysm of the aorta. No dissection of the aorta. Lungs: Unremarkable. No consolidation. No masses. Pleural spaces: Unremarkable. No pneumothorax. No pleural effusion. Heart: Unremarkable. No cardiomegaly. No pericardial effusion. Coronary arteries: Coronary artery calcifications may indicate coronary artery disease. Lymph nodes: Unremarkable. No enlarged lymph nodes. Diaphragm: Moderate hiatal hernia Liver: Lobulated liver consistent with cirrhosis Kidneys: Simple cyst in the right kidney 5 cm . No follow-up imaging recommended . Bones/joints: Unremarkable. No acute fracture. Soft tissues: Unremarkable. IMPRESSION: 1. No evidence of pulmonary embolus to the segmental level. 2. No aneurysm of the aorta. 3. No dissection of the aorta. COMMENTS: Consistent with the [employer]'s Incidental Findings Committee white paper (J Am Antonio Radiol 2018): Any incidental renal lesion less than 1 cm or classified as too small to characterize, or any incidental cystic renal lesion characterized as simple-appearing, is likely benign. No follow-up imaging is recommended for these lesions per consensus recommendations based on imaging criteria.
[2025-04-09] MEDS: 0.9 % SODIUM CHLORIDE 1000ML 1,000 ML 999 ML IV (15:51)
--- NOTE | 2025-04-09 16:00 | PC.NURSE ---
Pt out of room with Rad for CT
[2025-04-09] MEDS: 0.9 % SODIUM CHLORIDE 50 ML VIAL IV (16:10)
[2025-04-09] MEDS: IOPAMIDOL-370 (76%);100ML BOTTLE 80 ML IV (16:10)
[2025-04-09] MEDS: SODIUM CHLORIDE 0.9% 10ML SYR (RAD ONLY) 10 ML IV (16:10)
[2025-04-09 16:51] LABS: Hepatitis C Ab Qual. W/ RFX NEGATIVE (Negative)
[2025-04-09 18:41] LABS: Reflex Lactic Add Lactic Reflex
== END 2025-04-09 18:03 | disposition home or self-care (01) ==
PROVIDERS: Nurse Practitioner; Emergency Provider Student in an Organized Health Care Education/Training Program; PCP Emergency Medicine
DX: E66.2 Morbid (severe) obesity with alveolar hypoventilation (principal); J06.9 Acute upper respiratory infection, unspecified; D86.0 Sarcoidosis of lung; J44.9 Chronic obstructive pulmonary disease, unspecified; Z87.891 Personal history of nicotine dependence
CPT/HCPCS: 71045; 71275; 80053; 82803; 83880; 84484; 85025; 85378; 86803; 87389; 93005; 96360; 99285; J7030; Q9967